=== PATIENT | female | born 1970 | race Caucasian/White ===

== ENCOUNTER 2019-08-09 16:35 | Outpatient (CLI) | payer OTHER, SELFPAY | END 2019-08-09 16:36 | disposition home or self-care (01) | LOC: SPT 16:37 | PROVIDERS: Family Provider Family Medicine; PCP Internal Medicine; Visit Provider Podiatrist Foot & Ankle Surgery | DX: Z46.89 Encounter for fitting and adjustment of other specified devices (principal) | CPT/HCPCS: L1902 ==

== ENCOUNTER → 2019-11-15 14:51 | Outpatient (BNVA) | payer OTHER, SELFPAY | PROVIDERS: Family Provider Family Medicine; PCP Internal Medicine; Visit Provider Obstetrics & Gynecology | DX: Q51.828 Other congenital malformations of cervix (principal) | CPT/HCPCS: 76830 ==

== ENCOUNTER 2019-12-08 07:17 | Outpatient (CLI) | payer OTHER, SELFPAY ==
--- NOTE | 2019-12-08 07:21 | MM_ITS ---
WS: [id number] BILATERAL DIGITAL SCREENING MAMMOGRAPHY WITH CAD CLINICAL INFORMATION: SCREENING HISTORY: Screening mammogram. No current complaints. COMPARISON: September 16, 2018 TECHNIQUE: Bilateral CC and MLO views. FINDINGS: History of Bilateral breast reduction. Scattered fibroglandular densities bilaterally. No suspicious focal mass, asymmetry, calcifications, or architectural distortion. No evidence of malignancy. MM/[id number] IMPRESSION: BI-RADS: 1-Negative FOLLOW UP: 1 Year Follow-up Recommend return to annual screening mammography.
== END 2019-12-08 07:18 | disposition home or self-care (01) ==
LOC: RADSHAW 07:20
PROVIDERS: PCP Family Medicine; Visit Provider Obstetrics & Gynecology
DX: Z12.31 Encounter for screening mammogram for malignant neoplasm of breast (principal)
CPT/HCPCS: 77067

== ENCOUNTER → 2020-08-08 08:03 | Outpatient (BNVA) | payer OTHER, SELFPAY | PROVIDERS: PCP Family Medicine; Visit Provider Internal Medicine | DX: E03.9 Hypothyroidism, unspecified (principal); Z13.1 Encounter for screening for diabetes mellitus; Z78.0 Asymptomatic menopausal state; Z87.81 Personal history of (healed) traumatic fracture | CPT/HCPCS: 99204 ==

== ENCOUNTER 2020-08-22 10:27 | Outpatient (CLI) | payer OTHER, SELFPAY ==
--- NOTE | 2020-08-22 16:15 | XR_ITS ---
WS: [id number] DEXA (DUAL ENERGY X-RAY ABSORPTIOMETRY) Bone mineral density was performed using a [employer] machine. HISTORY: post menopausal, has 2 fractures COMPARISON: None available. Lumbar spine BMD (L1-L4): 1.254 g/cm2 T score: 0.6 Z score: 0.0 Total hip BMD: Left: 1.066 g/cm2. T score: 0.5 Z score: 0.2 Right: 1.030 g/cm2. T score: 0.2 Z score: -0.1 10 year probability of a major osteoporotic fracture is 14%. XR/XR DEXA axial skeleton* [id number] IMPRESSION: NORMAL BONE MINERAL DENSITY based upon the WHO classification for females.
== END 2020-08-22 10:28 | disposition home or self-care (01) ==
LOC: RADWPI 10:29
PROVIDERS: PCP Family Medicine; Visit Provider Internal Medicine
DX: Z78.0 Asymptomatic menopausal state (principal)
CPT/HCPCS: 77080

== ENCOUNTER → 2020-10-04 08:20 | Outpatient (BNVA) | payer OTHER, SELFPAY | PROVIDERS: PCP Family Medicine; Visit Provider Internal Medicine | DX: E03.9 Hypothyroidism, unspecified (principal); Z13.1 Encounter for screening for diabetes mellitus; Z78.0 Asymptomatic menopausal state; Z87.81 Personal history of (healed) traumatic fracture | CPT/HCPCS: 99214 ==

== ENCOUNTER → 2020-10-17 11:57 | Outpatient (BNVA) | payer OTHER, SELFPAY | PROVIDERS: PCP Family Medicine; Visit Provider Family Medicine | DX: Z20.822 Contact with and (suspected) exposure to COVID-19 (principal) | CPT/HCPCS: 87635 ==

== ENCOUNTER 2021-01-08 07:09 | Outpatient (CLI) | payer OTHER, SELFPAY ==
--- NOTE | 2021-01-08 07:19 | MM_ITS ---
WS: [id number] SCREENING DIGITAL MAMMOGRAM WITH CAD HISTORY: SCREENING COMPARISON: 12/08/2019, 09/16/2018 and 09/11/2017 Bilateral CC and MLO views submitted. Computer aided detection analyzed. Breast composition: There are scattered areas of fibroglandular density. 10 mm asymmetry in the later al LEFT breast seen on the CC projection posterior. May be just above the nipple line on the lateral projection. Otherwise the asymmetries within each breast are stable. MM/[place] [id number] IMPRESSION: BI-RADS: 0-Incomplete: Need additional imaging evaluation FOLLOW UP: Need Additional Imaging LEFT breast: Spot compression views (CC and MLO). True ML. Ultrasound to follow if abnormality persists.
== END 2021-01-08 07:10 | disposition home or self-care (01) ==
LOC: RADSHAW 07:12
PROVIDERS: PCP Family Medicine; Visit Provider Family Medicine
DX: Z12.31 Encounter for screening mammogram for malignant neoplasm of breast (principal)
CPT/HCPCS: 77067

== ENCOUNTER 2021-01-24 14:00 | Outpatient (CLI) | payer OTHER, SELFPAY ==
--- NOTE | 2021-01-24 14:06 | MM_ITS ---
WS: [id number] Exam: [place] [id number] Date/Time of Exam: 01/24/2021 2:11 PM Reason For Exam: ABNORMAL MAMMOGRAM A left diagnostic mammogram is performed. Compression spot images in the CC and MLO projections are o btained as well as a 90 degree lateral image of the left breast. A 10 mm ovoid nodule persists on the compression spot images and may represent a small lymph node. No suspicious calcification or adjacen t architectural distortion is demonstrated. Recommendations: Regional ultrasound recommended for further workup. MM/[place] [id number] IMPRESSION: 1. 10 mm of ovoid nodule seen in the upper outer quadrant of the left breast on the compression spot images may represent a small lymph node. No suspicious ca lcification or architectural distortion is demonstrated. BI-RADS Category 0. Needs additional imaging.
--- NOTE | 2021-01-24 14:06 | US_ITS ---
WS: [id number] Exam: US breast LT limited* [id number] Date/Time of Exam: 01/24/2021 2:40 PM Reason For Exam: ABNORMAL MAMMOGRAM The upper outer quadrant of the left breast is targeted for ultrasound evaluation. There was no sign of suspicious solid mass. The 10 mm ovoid nodule described on the today's magnifica tion mammographic images cannot be identified with ultrasound. Recommendations: Repeat compression spot images of the upper outer quadrant of the left breast in 6 m [facility] in addition to regional ultrasound for surveillance. US/US breast LT limited* [id number] IMPRESSION: 1. No suspicious ultrasound finding in the upper outer quadrant of the left sandeep ast. The previously described ovoid nodule in the upper outer quadrant seen on mammography is not seen with ultrasound. BI-RADS Category 3 probably benign.
== END 2021-01-24 14:01 | disposition home or self-care (01) ==
LOC: RADSHAW 14:04
PROVIDERS: PCP Family Medicine; Visit Provider Family Medicine
DX: R92.8 Other abnormal and inconclusive findings on diagnostic imaging of breast (principal); N63.21 Unspecified lump in the left breast, upper outer quadrant
CPT/HCPCS: 76642; 77065

== ENCOUNTER → 2021-02-20 10:48 | Outpatient (BNVA) | payer OTHER, SELFPAY | PROVIDERS: PCP Family Medicine; Visit Provider Obstetrics & Gynecology | DX: N39.46 Mixed incontinence (principal) | CPT/HCPCS: 81000 ==

== ENCOUNTER → 2021-04-13 08:25 | Outpatient (BNVA) | payer OTHER, SELFPAY | PROVIDERS: PCP Family Medicine; Visit Provider Obstetrics & Gynecology | DX: N36.41 Hypermobility of urethra (principal); N39.46 Mixed incontinence; Z20.822 Contact with and (suspected) exposure to COVID-19 | CPT/HCPCS: 87635 ==

== ENCOUNTER 2021-04-18 09:57 | Day surgery (SDC) | payer OTHER, SELFPAY ==
[2021-04-16 11:30] VITALS: BMI 51.7
[2021-04-16 12:47] LABS: Basophils # 0.1 10^3/uL (0.0-0.1); Basophils % 0.8 %; Eosinophils # 0.2 10^3/uL (0.0-0.8); Hematocrit 44.4 % (37.0-47.0); Lymphocytes # 2.8 10^3/uL (0.8-4.8); Lymphocytes % 38.2 %; Mean Corpuscular HGB Conc 31.5 g/dL (30.0-36.0); Mean Corpuscular Hemoglobin 28.4 pg (28.0-34.0); Mean Corpuscular Volume 90.1 fl (81-99); Mean Platelet Volume 10.6 fL (7.4-10.4); Monocytes # 0.5 10^3/uL (0.2-0.9); Monocytes % 7.2 %; Neutrophils # 3.65 10^3/uL (1.8-7.7); Neutrophils % 50.7 %; Nucleated Red Blood Cells % 0 %; Platelet Count 267 10^3/cmm (130-400); Red Blood Count 4.93 10^6/uL (4.1-5.3); Red Cell Distribution Width 13.8 % (12.1-15.1); White Blood Count 7.2 10^3/uL (4.0-10.0)
[2021-04-16 12:53] LABS: Add Urine Microscopic? YES; Bilirubin Urine Neg (Negative); Blood Urine Neg (Negative); Calcium Oxalate Crystals Urine 0-4 /hpf; Glucose Urine UA Norm (Normal); Ketones Urine Negative (Negative); Leukocyte Esterase Urine Negative (Negative); Nitrate Urine Positive (Negative); OR HCG Qualitative Urine Negative (Negative); Protein Urine Neg (Negative); Squamous Epithelial Cell Urine RARE /hpf (0-5); Urine Appearance Clear (CLEAR); Urine Color Yellow (Yellow); Urobilinogen Urine Norm (Negative); pH Urine 5 (5-7)
--- NOTE | 2021-04-16 13:15 | ANES.PREANE2 ---
Pre-Anesthetic Assessment Pre-Anesthetic Assessment: Height/Weight: Height 1.65 m Weight 141.067 kg Proposed Procedure: Operation Date: 04/18/21 07:00 Proposed Procedures p Midurethral single incision sling(Not Applicable) - Cachorro Tamez MD Was Beta Tasha taken within 24 hours: N/A Was Clonidine taken within 24 hours: N/A Social: Social History: No alcohol and No tobacco Exam: Pre-Anes Outpt Exam: alert, oriented x 3, clear to auscultation bilaterally and regular rate & rhythm Airway: Submandibular: WNL Cervical ROM: WNL MP: 2 Dentition: Full CV/HEM: CV/HEM: HTN GI: GI: GERD Metabolic: Metabolic: Morbid obesity and Thyroid Neuropsych: Neuropsych: Depression Anesthetic Plan: ASA status: 3 Anesthesia: General Risk of > 500 ml blood loss (7ml/kg in children): No PFSH Anesthesia PFSH: Medical History GERD (gastroesophageal reflux disease) Controlled with medication. Hypertension Diagnosed with chronic hypertension and pedal edema in 2017 and medication controls the symptoms managed by her primary care provider. She does not have a senior javascript developer. Hypothyroidism Diagnosed in 2006 and controlled with medication managed by real estate administrative assistant Dr. Blake. Mood changes Controlled with fluoxetine managed by her PMD. She does not see a therapist No pertinent past medical history Denies diabetes, asthma, seizures, DVT/PE. PMD: Dr. Guevara OAB (overactive bladder) Controlled with medication managed by her primary care provider . Surgical History S/P cholecystectomy laparoscopic procedure performed in 1999 S/P laparoscopy 04/11/2004--Diagnostic laparoscopy, pelvic pain, Dr. Grissom. She states that no abnormality was noted on laparoscopy. S/P peroneal tendon repair Performed by Dr. Darby at [facility] [place] in May 2019 S/P reduction mammoplasty Performed in 2005 S/P tubal ligation Sterilization by Essure procedure performed in July [address] Lee at [facility]. Status post arthroscopic knee surgery [address] Tracey Family History Mother Diabetes Brother Diabetes Father Heart disease Family/Other Ovarian cancer Maternal cousin, age at diagnosis unknown Breast cancer Paternal aunt, age at diagnosis unknown Sister Thyroid condition Denies family history of Colon cancer Clotting disorder Hyperlipidemia Anesthesia complication Bleeding disorder Hypertension Uterine cancer Stroke Social History Smoking and tobacco status: never smoked Alcohol intake: never Desire information about alcohol rehabilitation?: No Data Anesthesia CBC & Chem 7: 04/16/21 11:52 04/16/21 11:52 Other Labs: Laboratory Results - last 48 hr 04/16/21 04/16/21 04/16/21 11:52 11:52 11:52 WBC 7.2 RBC 4.93 Hgb 14.0 Hct 44.4 MCV 90.1 MCH 28.4 MCHC 31.5 RDW 13.8 Plt Count 267 MPV 10.6 H Neut % (Auto) 50.7 Lymph % (Auto) 38.2 [place] % (Auto) 7.2 Eos % (Auto) 3.0 Baso % (Auto) 0.8 Neut # (Auto) 3.65 Lymph # (Auto) 2.8 [place] # (Auto) 0.5 Eos # (Auto) 0.2 Baso # (Auto) 0.1 Nucleated RBC % (auto) 0 Nucleated RBCs # 0.0 Urine Color Yellow Urine Appearance Clear Urine pH 5 Ur Specific [place] 1.030 Urine Protein Neg Urine Glucose (UA) Norm Urine Ketones Negative Urine Blood Neg Urine Nitrate Positive H Urine Bilirubin Neg Urine Urobilinogen Norm Ur Leukocyte Esterase Negative Urine RBC None Urine WBC None Ur Squamous Epith Cells Rare Calcium Oxalate Crystal 0-4 H Amorphous Sediment Not Reportable Urine Bacteria None Urine HCG, Qual Negative Cardiac Studies: No Data to Display
[2021-04-16 13:21] LABS: Alanine Aminotransferase 14 U/L (0-33); Alkaline Phosphatase 73 IU/L (35-105); Anion Gap 10.1 (5-19); Aspartate Amino Transferase 13 U/L (0-32); Blood Urea Nitrogen 20 mg/dL (6-20); Calcium 9.1 mg/dL (8.5-10.5); Carbon Dioxide 28 mmol/L (22-29); Chloride 107 mmol/L (98-107); Globulin 2.6 g/dL (1.3-4.6); Glucose 84 mg/dL (65-115); Osmolality Calculated 294 mOsm/kg (285-295); Potassium 4.1 mmol/L (3.5-5.1); Sodium 141 mmol/L (136-145); Total Bilirubin 0.3 mg/dL (0.15-1.2); Total Protein 6.6 g/dL (6.6-8.7)
[2021-04-18] MEDS: scopolamine 1.5 Patch 1 PATCH TRANSDERMA (10:29)
--- NOTE | 2021-04-18 10:34 | P.ANESUD_ITS ---
Pre-Anesthetic Update Pre-Anesthetic Assessment: Date of Surgery/Procedure: 04/18/21 Preop Josi gnosis: Stress urinary incontinence Proposed Procedure: Operation Date: 04/18/21 11:25 Proposed Procedures p Midurethral single incision sling(Not Applicable) - Cachorro Tamez MD Any changes to Pre-Anesthetic Assessment?: No Last Intake: Intake Last Liquid Date 04/17/21 Last Liquid Time 19:30 Last Solid Date 04/17/21 Last Solid Time 19:30 Labs Last 48hrs: Laboratory Results - last 48 hr 04/16/21 04/16/21 04/16/21 11:52 11:52 11:52 WBC 7.2 RBC 4.93 Hgb 14.0 Hct 44.4 MCV 90.1 MCH 28.4 MCHC 31.5 RDW 13.8 Plt Count 267 MPV 10.6 H Neut % (Auto) 50.7 Lymph % (Auto) 38.2 [place] % (Auto) 7.2 Eos % (Auto) 3.0 Baso % (Auto) 0.8 Neut # (Auto) 3.65 Lymph # (Auto) 2.8 [place] # (Auto) 0.5 Eos # (Auto) 0.2 Baso # (Auto) 0.1 Nucleated RBC % (a uto) 0 Nucleated RBCs # 0.0 Sodium Potassium Chloride Carbon Dioxide Anion Gap BUN Creatinine GFR Calculation Glucose Calculated Osmolal ity Calcium Total Bilirubin AST ALT Alkaline Phosphata se Total Protein Albumin Globulin Urine Color Yellow Urine Appearance Clear Urine pH 5 Ur Specific Gravit y 1.030 Urine Protein Neg Urine Glucose (UA) Norm Urine Ketones Negative Urine Blood Neg Urine Nitrate Positive H Urine Bilirubin Neg Urine Urobilinogen Norm Ur Leukocyte Rima ase Negative Urine RBC None Urine WBC None Ur Squamous Epith Cells Rare Calcium Oxalate Cr ystal 0-4 H Amorphous Sediment Not Reportable Urine Bacteria None Urine HCG, Qual Negative Blood Type Rho(D) Type Antibody Screen 04/16/21 04/16/21 11:52 11:52 WBC RBC Hgb Hct MCV MCH MCHC RDW Plt Count MPV Neut % (Auto) Lymph % (Auto) [place] % (Auto) Eos % (Auto) Baso % (Auto) Neut # (Auto) Lymph # (Auto) [place] # (Auto) Eos # (Auto) Baso # (Auto) Nucleated RBC % (a uto) Nucleated RBCs # Sodium 141 Potassium 4.1 Chloride 107 Carbon Dioxide 28 Anion Gap 10.1 BUN 20 Creatinine 0.6 GFR Calculation 105.0 Glucose 84 Calculated Osmolal ity 294 Calcium 9.1 Total Bilirubin 0.3 AST 13 ALT 14 Alkaline Phosphata se 73 Total Protein 6.6 Albumin 4.0 Globulin 2.6 Urine Color Urine Appearance Urine pH Ur Specific Gravit y Urine Protein Urine Glucose (UA) Urine Ketones Urine Blood Urine Nitrate Urine Bilirubin Urine Urobilinogen Ur Leukocyte Rima ase Urine RBC Urine WBC Ur Squamous Epith Cells Calcium Oxalate Cr ystal Amorphous Sediment Urine Bacteria Urine HCG, Qual Blood Type A Positive Rho(D) Type Positive Antibody Screen Negative Vitals: Oxygen Delivery Me thod 04/18/21 10:16 Exam: Pre-Anes Outpt Exam: alert, oriented x 3, clear to auscultation bilaterally and regular rate & rhythm Cardiac Studies: No Data to Display
[2021-04-18] MEDS: sodium chloride 0.9% 1,000 ML 30 ML IV (10:50)
--- NOTE | 2021-04-18 11:23 | W.PM.OPSUD ---
Surgery/Procedure H&P Update DATE OF PROCEDURE: April 18, 2021 DATE H&P PERFORMED: 04/16/21 H&P UPDATE INFORMATION: I have reviewed H&P completed within last 30 days, I have examined patient prior to procedure and No changes to prior documentation PREOP DIAGNOSIS: Stress urinary incontinence PLANNED PROCEDURE: Operation Date: 04/18/21 11:25 Proposed Procedures p Midurethral single incision sling(Not Applicable) - Cachorro Tamez MD
--- NOTE | 2021-04-18 12:25 | P.OP_ITS ---
Operative Report Date of procedure: April 18, 2021 Pre-op Diagnosis: Stress urinary incontinence Post-op diagnosis: same Procedure Done: Single incision mid urethral sling Pathology: none sent Surgeon: Cachorro Tamez MD Anesthesia: General Estimated blood loss (mL): 10 IV fluids (mL): 900 Urine output (mL): 100 Complications: None Findings: Urethral hypermobility Condition: stable Disposition: PACU Procedure: After obtaining informed consent, the patient was taken to the o perating room and placed in the supine position, given general anesthesia, and prepped and draped in sterile fashion. The abdomen, vulva and vagina were prepped and draped in a sterile manner. A time out procedure was performed. The anterior vaginal mucosa beneath the midurethra was infiltrated with 0.5% Marcaine with epinephrine. A vertical midline incision was made beneath the midurethra, nearly 1.5 cm length. Careful submucosal dissection was performed bilaterally up to the interior portion of the inferior pubic ramus. The insertion of adductor longus tendon on the patient?s pubic ramus was identified as reference land paul. Palpated the notch along the internal edge of ischiopubic ramus where the adductor longus tendon and the inferior pubic ramus meet. The Altis single incision sling (SIS) was selected. Then the needle of the SIS inserted aiming at the location of this notch. One of the integrated self- fixating tips place onto the needle by sliding it over the end of the needle. The needle/sling assembly was inserted toward the location of identified reference notch making sure that the flat of the handle is perpendicular to the desired path. The needle was tracked along the posterior surface of the ischiopubic ramus until the midline paul on the mesh is approximately at the midline position under the urethra. The needle was removed and the same was repeated on the contralateral side until the appropriate sling tension under the urethra was achieved ensuring that the mesh lays flat. The needle was removed and vaginal incision was closed in a running interlocking fashion with 2-0 Vicryl. Excellent hemostasis was obtained. Sponge, lap, needle, and instrument counts were correct times three. The patient was taken to the recovery room, awake and in stable condition.
[2021-04-18 12:27] VITALS: BP 134/70; PULSE 66; RESP 20; TEMP 36.7; O2SAT 97
[2021-04-18 12:35] VITALS: BP 115/74; PULSE 81; RESP 20; O2SAT 99
[2021-04-18 12:40] VITALS: BP 125/75; PULSE 73; RESP 20; TEMP 36.1; O2SAT 95
[2021-04-18 12:50] VITALS: BP 132/61; PULSE 70; RESP 16; TEMP 36.2; O2SAT 94
[2021-04-18 13:04] VITALS: BP 138/85; PULSE 67; RESP 15; TEMP 36.6; O2SAT 95
[2021-04-18] MEDS: ibuprofen 800 mg tablet PO (13:29)
--- NOTE | 2021-04-18 15:46 | ANE.PACU2 ---
Inpatient post-anesthesia follow up: Airway intact: Yes Vital signs: Temperature 98 F Pulse Rate 67 Respiratory Rate 15 Blood Pressure 138/85 Pulse Oximetry 95 Oxygen Delivery Me thod Room Air Oxygen Flow Rate 8 Fraction of Inspir ed Oxygen Hydration adequate: Yes Nausea and vomiting: No Pain level: 2 Mental status: Baseline
== END 2021-04-18 15:05 | disposition home or self-care (01) ==
PROVIDERS: PCP Family Medicine; Visit Provider Obstetrics & Gynecology
PROC: (CPT 57288; principal; 2021-04-18 11:25)
DX: N39.3 Stress incontinence (female) (male) (principal); I10 Essential (primary) hypertension; K21.9 Gastro-esophageal reflux disease without esophagitis; E66.01 Morbid (severe) obesity due to excess calories; Z68.43 Body mass index [BMI] 50.0-59.9, adult; F32.9 Major depressive disorder, single episode, unspecified; E03.9 Hypothyroidism, unspecified; Z82.49 Family history of ischemic heart disease and other diseases of the circulatory system; Z83.3 Family history of diabetes mellitus
CPT/HCPCS: 57288; 36415; 80053; 81001; 84703; 85025; 86850; 86900; 96365; C1713; J0330; J0690; J1100; J2405; J2704; J3010; J7030

== ENCOUNTER → 2021-05-01 08:57 | Outpatient (BNVA) | payer OTHER, SELFPAY | PROVIDERS: PCP Family Medicine; Visit Provider Obstetrics & Gynecology | DX: Z48.816 Encounter for surgical aftercare following surgery on the genitourinary system (principal); E03.9 Hypothyroidism, unspecified; N32.81 Overactive bladder; R23.2 Flushing | CPT/HCPCS: 83001 ==

== ENCOUNTER → 2021-05-11 11:54 | Outpatient (BNVA) | payer OTHER, SELFPAY | PROVIDERS: PCP Family Medicine; Visit Provider Family Medicine | DX: Z20.828 Contact with and (suspected) exposure to other viral communicable diseases (principal); Z20.822 Contact with and (suspected) exposure to COVID-19 | CPT/HCPCS: 87635 ==

== ENCOUNTER 2021-05-15 13:03 | Inpatient (IN) | payer OTHER, SELFPAY ==
[2021-05-15] VITALS (9 sets, daily range): BP systolic 125–132; BP diastolic 85–88; PULSE 53–97; RESP 17–26; TEMP 36.6–37.1; O2SAT 80–92; BMI 49.9
--- NOTE | 2021-05-15 13:18 | ED_ITS ---
HPI - COVID General: Chief Complaint: Shortness of Breath/Dyspnea Stated Complaint: COVID SYMPTOMS/ RESPIRATORY DISTRESS Time Seen by Provider: 05/15/21 13:18 History of Present Illness: HPI Narrative: 50-year-old female presents to the emergency room complaints of COVID symptoms and difficulty breathing. MD complaint: known COVID positive Prior covid testing: yes, results known Prior testing date: 05/11/21 COVID 19 common symptoms: positive fever(s), chills, cough, non-productive cough, dyspnea, fatigue, body aches, loss of sense of smell and/or taste, throat pain, nasal congestion and diarrhea; negative nausea or vomiting COVID 19 other sytmptoms: positive requiring oxygen; negative chest pain Onset (ago): day(s) (6) Severity: moderate Pertinent comorbid conditions: hypertension and obesity Treatment prior to arrival: acetaminophen COVID Results: SARS-CoV-2 RNA (RT-PCR) Detected (NOT DETECTED) A 05/11/21 11:54 05/11/21 Nasal/Oral Coronavirus 2019 PCR Not detected 10/17/20 11:57 10/17/20 Review of Systems Const: Reports: fever(s), chills, body aches and fatigue ENMT: Reports: throat pain and nasal congestion Card: Denies: chest pain, edema, dyspnea on exertion or orthopnea Resp: Reports: dyspnea and non-productive cough GI: Reports: diarrhea; Denies: nausea or vomiting : Denies: flank pain, difficulty voiding, dysuria, urinary frequency or urinary urgency Skin/Breast: Denies: rash or pruritus [facility] ED PFSH: Medical History Aftercare following surgery of the genitourinary system GERD (gastroesophageal reflux disease) Controlled with medication. Hypertension Diagnosed with chronic hypertension and pedal edema in 2018 and medication controls the symptoms managed by her primary care provider. She does not have a nonprofit manager. Hypothyroidism Diagnosed in 2006 and controlled with medication managed by chief of anesthesiology Dr. Blake. Mood changes Controlled with fluoxetine managed by her PMD. She does not see a therapist No pertinent past medical history Denies diabetes, asthma, seizures, DVT/PE. PMD: Dr. Guevara OAB (overactive bladder) Controlled with medication managed by her primary care provider . Surgical History History of suburethral sling procedure 04/18/2021- single incision midurethral sling performed by Dr. Tamez at [facility] S/P cholecystectomy laparoscopic procedure performed in 1999 S/P laparoscopy 04/11/2004--Diagnostic laparoscopy, pelvic pain, Dr. Grissom. She states that no abnormality was noted on laparoscopy. S/P peroneal tendon repair Performed by Dr. Darby at [facility] [place] [place] in May 2019 S/P reduction mammoplasty Performed in 2005 S/P tubal ligation Sterilization by Essure procedure performed in July [address] Lee at [facility] [place] [place]. Status post arthroscopic knee surgery [address] Tracey Family History Mother Diabetes Brother Diabetes Father Heart disease Family/Other Ovarian cancer Maternal cousin, age at diagnosis unknown Breast cancer Paternal aunt, age at diagnosis unknown Sister Thyroid condition Denies family history of Colon cancer Clotting disorder Hyperlipidemia Anesthesia complication Bleeding disorder Hypertension Uterine cancer Stroke Social History Smoking and tobacco status: never smoked Alcohol intake: never Physical Exam Const: COMMON NORMALS: no acute distress GENERAL APPEARANCE: cooperative and comfortable ORIENTATION/CONSCIOUSNESS: Yes awake, Yes oriented to person, Yes oriented to place and Yes oriented to time HENMT: COMMON NORMALS: normocephalic, atraumatic and hearing grossly normal bilaterally HEAD & SCALP: normocephalic and atraumatic Neck/C-Spine: COMMON NORMALS: no JVD Resp: EFFORT & INSPECTION: Yes tachypneic, Yes respiratory distress and Yes labored AUSCULTATION: crackles and wheezes Cardio: COMMON NORMALS: no JVD, regular rate, regular rhythm and No murmurs present (Cardio) RATE: regular rate RHYTHM: regular rhythm GI: COMMON NORMALS: Soft to palpation and No hepatosplenomegaly present AUSCULTATION: Yes normoactive bowel sounds PALPATION: Yes Soft to palpation, No Tenderness to palpation present (GI), No Guarding due to palpation present (GI) and Yes No hepatosplenomegaly present Extremity: COMMON NORMALS: normal to inspection, capillary refill normal, no clubbing, cyanosis or edema, no calf tenderness and no pedal edema Neuro: SENSORIUM/ORIENTATION: Yes oriented to person, Yes oriented to place and Yes oriented to time Skin: COMMON NORMALS: no rashes or lesions noted GENERAL SKIN EXAM: no rashes or lesions noted Course Vital Signs: Vital signs: Vital Signs Temperature 98.1 F 05/17/21 12:35 Pulse Rate 43 L 05/18/21 06:00 Respiratory Rate 17 05/18/21 04:00 Blood Pressure 114/56 05/18/21 04:00 Pulse Oximetry 96 05/18/21 04:00 MDM - COVID MDM Narrative: Medical decision making narrative: Labs imaging EKG reviewed. Patient is with moderate to severe Covid pneumonitis is requiring oxygen at high doses she was switched to heated high flow. Discussed with hospitalist orders written we have initiated remdesivir and dexamethasone. She will require hospitalization. Lab Data: Labs: Lab Results 05/15/21 05/15/21 05/15/21 12:40 12:40 12:40 WBC 6.2 10^3/uL 10^3/ uL (4.0-10.0) RBC 5.37 10^6/uL H 10 ^6/uL (4.1-5.3) Hgb 14.8 g/dL g/dL (11.5-15.3) Hct 45.3 % % (37.0-47.0) MCV 84.4 fl fl (81-99) MCH 27.6 pg L pg (28.0-34.0) MCHC 32.7 g/dL g/dL (30.0-36.0) RDW 14.5 % % (12.1-15.1) Plt Count 219 10^3/cmm 10^3 /cmm (130-400) MPV 11.1 fL H fL (7.4-10.4) Neut % (Auto) 62.3 % % Lymph % (Auto) 32.3 % % [place] % (Auto) 5.0 % % Eos % (Auto) 0.0 % % Baso % (Auto) 0.2 % % Neut # (Auto) 3.87 10^3/uL 10^3 /uL (1.8-7.7) Lymph # (Auto) 2.0 10^3/uL 10^3/ uL (0.8-4.8) [place] # (Auto) 0.3 10^3/uL 10^3/ uL (0.2-0.9) Eos # (Auto) 0.0 10^3/uL 10^3/ uL (0.0-0.8) Baso # (Auto) 0.0 10^3/uL 10^3/ uL (0.0-0.1) Nucleated RBC % (a uto) 0 % % Nucleated RBCs # 0.0 /100WBC /100W BC D-Dimer 1.27 ug/mIFEU H u g/mIFEU (0-0.59) Specimen Type Sample Site ABG pH ABG pCO2 ABG pO2 ABG HCO3 ABG Base Excess Darwin Test Hematocrit O2 Delivery Device O2 Liters/Min FiO2 Department Assistant ID Sodium 138 mmol/L mmol/L (136-145) Potassium 3.1 mmol/L L mmol /L (3.5-5.1) Chloride 98 mmol/L mmol/L (98-107) Carbon Dioxide 25 mmol/L mmol/L (22-29) Anion Gap 18.1 (5-19) BUN 9 mg/dL mg/dL (6-20) Creatinine 0.7 mg/dL mg/dL (0.5-0.9) GFR Calculation 87.9 mL/min L mL/ min (90-130) Glucose 113 mg/dL mg/dL (65-115) Calculated Osmolal ity 285 mOsm/kg mOsm/ kg (285-295) Lactic Acid Lactic Acid (Sepsi s) Calcium 8.2 mg/dL L mg/dL (8.5-10.5) Total Bilirubin 0.6 mg/dL mg/dL (0.15-1.2) AST 82 U/L H U/L (0-32) ALT 46 U/L H U/L (0-33) Alkaline Phosphata se 119 IU/L H IU/L (35-105) Troponin T Baselin e C-Reactive Protein 104.4 mg/L H mg/L (0.0-4.9) NT-Pro-B Natriuret Pep Total Protein 6.7 g/dL g/dL (6.6-8.7) Albumin 3.6 g/dL g/dL (3.5-5.2) Globulin 3.1 g/dL g/dL (1.3-4.6) Procalcitonin 05/15/21 05/15/21 05/15/21 12:40 12:40 13:50 WBC RBC Hgb Hct MCV MCH MCHC RDW Plt Count MPV Neut % (Auto) Lymph % (Auto) [place] % (Auto) Eos % (Auto) Baso % (Auto) Neut # (Auto) Lymph # (Auto) [place] # (Auto) Eos # (Auto) Baso # (Auto) Nucleated RBC % (a uto) Nucleated RBCs # D-Dimer Specimen Type Arterial Sample Site Radial, right ABG pH 7.43 (7.35-7.45) ABG pCO2 39.3 mmHg mmHg (35-45) ABG pO2 57.0 mmHg L mmHg (80.0-100.0) ABG HCO3 26.1 mmol/L H mmo l/L (22-26) ABG Base Excess 1.8 mmol/L mmol/L (-2.0-2.0) Darwin Test Pos Hematocrit 45.5 % % (37-47) O2 Delivery Device Nc O2 Liters/Min 8.0 % % FiO2 Department Assistant ID Amh Sodium Potassium Chloride Carbon Dioxide Anion Gap BUN Creatinine GFR Calculation Glucose Calculated Osmolal ity Lactic Acid Lactic Acid (Sepsi s) Calcium Total Bilirubin AST ALT Alkaline Phosphata se Troponin T Baselin e 8 ng/L ng/L (0-10) C-Reactive Protein NT-Pro-B Natriuret Pep 149 pg/mL H pg/mL (0-125) Total Protein Albumin Globulin Procalcitonin 0.11 ng/mL ng/mL (0-0.5) 05/15/21 05/15/21 05/15/21 14:48 16:00 17:31 WBC RBC Hgb Hct MCV MCH MCHC RDW Plt Count MPV Neut % (Auto) Lymph % (Auto) [place] % (Auto) Eos % (Auto) Baso % (Auto) Neut # (Auto) Lymph # (Auto) [place] # (Auto) Eos # (Auto) Baso # (Auto) Nucleated RBC % (a uto) Nucleated RBCs # D-Dimer Specimen Type Arterial Sample Site Radial, right ABG pH 7.44 (7.35-7.45) ABG pCO2 40.1 mmHg mmHg (35-45) ABG pO2 60.7 mmHg L mmHg (80.0-100.0) ABG HCO3 27.4 mmol/L H mmo l/L (22-26) ABG Base Excess 3.1 mmol/L H mmol /L (-2.0-2.0) Darwin Test Pos Hematocrit 46.5 % % (37-47) O2 Delivery Device Nc O2 Liters/Min 45.0 % % FiO2 60.0 % % Department Assistant ID Amh Sodium Potassium Chloride Carbon Dioxide Anion Gap BUN Creatinine GFR Calculation Glucose Calculated Osmolal ity Lactic Acid 2.3 mmol/L H mmol /L (0.5-2.2) Lactic Acid (Sepsi s) 1.1 mmol/L mmol/L (0.5-2.2) Calcium Total Bilirubin AST ALT Alkaline Phosphata se Troponin T Baselin e C-Reactive Protein NT-Pro-B Natriuret Pep Total Protein Albumin Globulin Procalcitonin COVID Results: SARS-CoV-2 RNA (RT-PCR) Detected (NOT DETECTED) A 05/11/21 11:54 05/11/21 Nasal/Oral Coronavirus 2019 PCR Not detected 10/17/20 11:57 10/17/20 Discharge Plan Discharge Patient Disposition: Admitted As Inpatient Admit Provider: Gamaliel Wick Clinical Impression: Pneumonia due to COVID-19 virus, Acute respiratory failure with hypoxia, Hypothyroidism Condition: Stable Coding Level of Care Code ED Polisher Hand for Yomaira Pedroza
--- NOTE | 2021-05-15 13:35 | XR_ITS ---
WS: [id number] Exam: XR chest 1V portable [id number] Date/Time of Exam: 05/15/2021 1:38 PM Reason For Exam: hypoxia Comparison 06/16/2019. There are patchy ill-defined groundglass densities noted throughout both lung suspicious for pneumoni a. Normal cardiomediastinal structures. No pleural effusion. No pneumothorax. Chronic elevation of th e right diaphragm. XR/XR chest 1V portable [id number] IMPRESSION: 1. Patchy ill-defined groundglass infiltrates throughout both lungs suggesting pneumonia. Covid pneumonia could have this appearance but the pattern is nonspe cific
[2021-05-15 14:01] LABS: Basophils % 0.2 %; Hematocrit 45.3 % (37.0-47.0); Hemoglobin 14.8 g/dL (11.5-15.3); Lymphocytes % 32.3 %; Mean Corpuscular HGB Conc 32.7 g/dL (30.0-36.0); Mean Corpuscular Hemoglobin 27.6 pg (28.0-34.0); Mean Corpuscular Volume 84.4 fl (81-99); Mean Platelet Volume 11.1 fL (7.4-10.4); Monocytes # 0.3 10^3/uL (0.2-0.9); Neutrophils # 3.87 10^3/uL (1.8-7.7); Neutrophils % 62.3 %; Nucleated Red Blood Cells % 0 %; Platelet Count 219 10^3/cmm (130-400); Red Blood Count 5.37 10^6/uL (4.1-5.3); Red Cell Distribution Width 14.5 % (12.1-15.1); White Blood Count 6.2 10^3/uL (4.0-10.0)
[2021-05-15 14:02] LABS: ABG PCO2 39.3 mmHg (35-45); ABG PH Result 7.43 (7.35-7.45); Arterial Blood Gas Hematocrit 45.5 % (37-47); Base Excess ABG 1.8 mmol/L (-2.0-2.0); Blood Gas Allen Test Pos; Blood Gas Operator Identificat AMH; Blood Gas Sample Site Radial, right; Blood Gas Sample Type Arterial; HCO3 ABG 26.1 mmol/L (22-26); Oxygen Device NC
[2021-05-15 14:11] LABS: Alanine Aminotransferase 46 U/L (0-33); Albumin Level 3.6 g/dL (3.5-5.2); Alkaline Phosphatase 119 IU/L (35-105); Anion Gap 18.1 (5-19); Aspartate Amino Transferase 82 U/L (0-32); Blood Urea Nitrogen 9 mg/dL (6-20); C Reactive Protein 104.4 mg/L (0.0-4.9); Calcium 8.2 mg/dL (8.5-10.5); Carbon Dioxide 25 mmol/L (22-29); Chloride 98 mmol/L (98-107); Globulin 3.1 g/dL (1.3-4.6); Glomerular Filtration Rate 87.9 mL/min (90-130); Glucose 113 mg/dL (65-115); Osmolality Calculated 285 mOsm/kg (285-295); Potassium 3.1 mmol/L (3.5-5.1); Sodium 138 mmol/L (136-145); Total Bilirubin 0.6 mg/dL (0.15-1.2); Total Protein 6.7 g/dL (6.6-8.7)
[2021-05-15] MEDS: dexamethasone 4 mg/mL INJ 6 MG IVP (14:30)
[2021-05-15] MEDS: remdesivir 200 MG in sodium chloride 0.9% (100 ml) 60 ML 100 MG IV (14:31)
--- NOTE | 2021-05-15 14:56 | CTR_ITS ---
PROCEDURE INFORMATION: Exam: CTA Chest With Contrast Exam date and time: 05/15/2021 2:56 PM Age: 50 years old Clinical indication: Cough and shortness of breath; Additional info: Covid TECHNIQUE: Imaging protocol: Computed tomographic angiography of the chest with contrast. 3D rendering (Not supervised by radiologist): MIP and/or 3D reconstructed images were created by the technologist. Radiation optimization: All CT scans at this facility use at least one of these dose optimization techniques: automated exposure control; mA and/or kV adjustment per patient size (includes targeted exams where dose is matched to clinical indication); or iterative reconstruction. Contrast material: OMNI 350; Contrast volume: 90 ml; Contrast route: INTRAVENOUS (IV); COMPARISON: CR XR chest 1V portable [id number] 05/15/2021 1:50 PM RADIATION DOSE METRICS: Total DLP (mGy-cm): 564.04 FINDINGS: Pulmonary arteries: Normal. No pulmonary emboli. Aorta: Unremarkable. No aortic aneurysm. No aortic dissection. Lungs: Patchy bilateral mixed interstitial and airspace infiltrates. Pleural spaces: Unremarkable. No pneumothorax. No pleural effusion. Heart: Unremarkable. No cardiomegaly. No pericardial effusion. Lymph nodes: Unremarkable. No enlarged lymph nodes. Liver: Hepatic steatosis. Gallbladder and bile ducts: Cholecystectomy Bones/joints: Unremarkable. No acute fracture. Soft tissues: Unremarkable. CT/CT angio chest PE protcl [id number] IMPRESSION: 1. Negative for pulmonary embolus. 2. Cholecystectomy 3. Patchy bilateral mixed interstitial and airspace infiltrates. 4. Hepatic steatosis. Radiation Dose CTDIVOL = (mGy): DLP = 564.04 (mGy-cm)
[2021-05-15 15:20] LABS: Lactic Sepsis W/Reflex 2.3 mmol/L (0.5-2.2)
[2021-05-15 15:20] LABS: D Dimer 1.27 ug/mIFEU (0-0.59)
[2021-05-15 16:11] LABS: ABG PCO2 40.1 mmHg (35-45); ABG PH Result 7.44 (7.35-7.45); Arterial Blood Gas Hematocrit 46.5 % (37-47); Base Excess ABG 3.1 mmol/L (-2.0-2.0); Blood Gas Allen Test Pos; Blood Gas Operator Identificat AMH; Blood Gas Sample Site Radial, right; Blood Gas Sample Type Arterial; HCO3 ABG 27.4 mmol/L (22-26); Oxygen Device NC; PO2 ABG 60.7 mmHg (80.0-100.0)
--- NOTE | 2021-05-15 16:37 | P.HP_ITS ---
Providers/Chief Complaint Primary Care Provider: Abdi Guevara MD Chief Complaint: COVID SYMPTOMS/ RESPIRATORY DISTRESS History of Present Illness Arlet Parker is a 50 year old female with a past medical history of hypothyroidism, hypertension recently, recently had bladder surgery for stress incontinence who presents to [facility] for shortness of breath, cough, fatigue, malaise, fever since May 03. Patient tells me that since about May 03 she started to feel fatigue, malaise, fever, cough she is notified by the health department that she tested positive for Covid on Friday. She has not been vaccinated for COVID-19, she is not received any monoclonal antibodies, she is not received influenza vaccine. She denies any cardiovascular history, no history of smoking, no history of COPD, no history of type 2 diabetes, no history of renal insufficiency. In the emergency room, patient was found to have acute hypoxic respiratory failure, initially put on 6 L nasal cannula, which was quickly increased to 40% 60 L, I examined her on 40% 60 L and she was still a bit short of breath, mild intercostal and suprasternal retractions, mild nasal flaring, her oxygen saturations were in the mid 80s, she is able to speak full sentences, repeat ABG showed a PO2 of 60.7 on 60%. Chest x-ray shows bilateral groundglass infiltrates. Given her BMI of 49.9, and her rapid increase in her oxygen requirements, I advised patient that she is a high risk of intubation in the next 24 to 48 hours. She voices any, all questions answered, agreed to be a full code, will admit her into the intensive care unit for closer monitoring. Review of Systems Const: Reports: fever(s), chills, fatigue and malaise Eyes: Denies: change in vision or blurry vision ENMT: Denies: nasal congestion Card: Denies: chest pain or palpitations Resp: Reports: dyspnea and non-productive cough; Denies: productive cough or wheezing GI: Denies: abdominal pain, nausea, vomiting, hematemesis, diarrhea, constipation, hematochezia or melena : Denies: flank pain, dysuria or urinary frequency Musc: Denies: back pain Skin/Breast: Denies: rash Neuro: Denies: headache(s), dizziness or vertigo Psych: Reports: sleeping less Endo: Denies: polyuria Medications/Allergies Home Medications Medication Instructions Recorded Confirmed Last Taken Type omeprazole 40 mg capsule,delayed 40 mg PO BID 07/02/19 05/15/21 05/08/21 History release fluoxetine 20 mg capsule 20 mg PO DAILY #30 cap 02/07/20 05/15/21 05/08/21 Rx triamterene 37.5 1 cap PO DAILY cap 11/17/20 05/15/21 05/08/21 History mg-hydrochlorothiazide 25 mg capsule multivitamin 1 tab PO DAILY 01/22/21 05/15/21 05/08/21 History levothyroxine 150 mcg capsule 150 mcg PO DAILY #90 cap 03/13/21 05/15/21 05/08/21 Rx acetaminophen 325 mg PO Q4H PRN #60 cap 04/18/21 05/15/21 Unknown Rx ibuprofen 800 mg PO TID PRN #60 tab 04/18/21 05/15/21 Unknown Rx oxybutynin chloride 15 mg 15 mg PO DAILY 30 Days #30 tab 05/01/21 05/15/21 05/08/21 Rx tablet,extended release 24 hr amoxicillin-pot clavulanate 1 tab PO BID 05/15/21 05/15/21 05/14/21 History Allergies Allergy/AdvReac Type Severity Reaction Status Date / Time No Known Allergies Allergy Verified 05/01/21 08:27 PFSH Acute PFSH: Medical History Aftercare following surgery of the genitourinary system GERD (gastroesophageal reflux disease) Controlled with medication. Hypertension Diagnosed with chronic hypertension and pedal edema in 2017 and medication controls the symptoms managed by her primary care provider. She does not have a net application support specialist. Hypothyroidism Diagnosed in 2006 and controlled with medication managed by septic tank service technician Dr. Blake. Mood changes Controlled with fluoxetine managed by her PMD. She does not see a therapist No pertinent past medical history Denies diabetes, asthma, seizures, DVT/PE. PMD: Dr. Guevara OAB (overactive bladder) Controlled with medication managed by her primary care provider . Surgical History History of suburethral sling procedure 04/18/2021- single incision midurethral sling performed by Dr. Tamez at [facility] S/P cholecystectomy laparoscopic procedure performed in 1999 S/P laparoscopy 04/11/2004--Diagnostic laparoscopy, pelvic pain, Dr. Grissom. She states that no abnormality was noted on laparoscopy. S/P peroneal tendon repair Performed by Dr. Darby at [facility] in May 2019 S/P reduction mammoplasty Performed in 2005 S/P tubal ligation Sterilization by Essure procedure performed in July [address] Lee at [facility]. Status post arthroscopic knee surgery [address] Tracey Family History Mother Diabetes Brother Diabetes Father Heart disease Family/Other Ovarian cancer Maternal cousin, age at diagnosis unknown Breast cancer Paternal aunt, age at diagnosis unknown Sister Thyroid condition Denies family history of Colon cancer Clotting disorder Hyperlipidemia Anesthesia complication Bleeding disorder Hypertension Uterine cancer Stroke Social History Smoking and tobacco status: never smoked Alcohol intake: never Vitals/I&O/Wt Last Vital Signs Temp 97.8 F 05/15/21 13:21 Pulse 93 05/15/21 14:49 Resp 22 H 05/15/21 14:55 BP 130/85 05/15/21 14:49 Pulse Ox 80 L 05/15/21 14:55 Weight last 48 hrs Weight 136.078 kg Physical Exam Const: COMMON NORMALS: no acute distress and patient oriented x3 GENERAL APPEARANCE: cooperative and comfortable HENMT: COMMON NORMALS: normocephalic HEAD & SCALP: normocephalic Eye: COMMON NORMALS: Equal, round and reactive pupils present and EOMs intact bilaterally GENERAL EYE: appearance normal, both eyes and all related structures PUPIL: Yes Equal, round and reactive pupils present Neck/C-Spine: COMMON NORMALS: full ROM and no lymphadenopathy THYROID: Thyroid normal Lymph: LYMPHATIC: no lymphadenopathy noted Resp: EFFORT & INSPECTION: Yes able to speak in complete sentences, Yes tachypneic, Yes respiratory distress (Mild respiratory distress) and Yes retractions intercostal AUSCULTATION: crackles and wheezes Cardio: COMMON NORMALS: regular rate, regular rhythm, S1 normal heart sound present, S2 normal heart sound present, No gallops present (Cardio), No clicks present (Cardio) and No murmurs present (Cardio) RATE: regular rate RHYTHM: regular rhythm HEART SOUNDS: S1 normal heart sound present and S2 normal heart sound present GI: COMMON NORMALS: Normal to inspection, nondistended, normoactive bowel sounds present, Soft to palpation, non-tender and No hepatosplenomegaly present PALPATION: Yes Soft to palpation and Yes No hepatosplenomegaly present Extremity: COMMON NORMALS: normal to inspection, full ROM and no pedal edema Neuro: COMMON NORMALS: patient oriented x3, CN's II-XII intact bilaterally, moves all extremities and no focal motor deficits Psych: COMMON NORMALS: mental status grossly normal, Normal thought process present and cooperative THOUGHT PROCESS: Normal thought process present Data : 05/15/21 12:40 05/15/21 12:40 A&P Assessment and plan (1) Acute respiratory failure with hypoxia: Acute hypoxic respiratory failure secondary COVID-19 pneumonia -With evidence of acute respiratory distress syndrome -With transaminitis -Risk factors morbid obesity -ABG on 60% is pH 7.44, PO2 60.7, bicarb 27 Plan -Admit to ICU -Continue heated high flow, BiPAP as needed -Urine cultures, blood cultures, sputum cultures, urine bacterial antigen -Monitor respiratory status closely -Incentive spirometer, flutter valve -Remdesivir day 1 of 5 -Baricitinib day 1-14 -Decadron day 1 of 10 -Rocephin and azithromycin for secondary bacterial prophylaxis -Vitamin C, zinc, vitamin D -Full code -Lovenox for DVT prophylaxis -Patient is a high risk of intubation the next 24 4 8 hours -CT angiogram, cardiac echo, BMP, troponin, serial EKGs, blood cultures, pending, A1c Hypothyroidism, continue home meds - Status: Acute (2) Acute respiratory distress syndrome: Status: Acute (3) Pneumonia due to COVID-19 virus: Status: Acute Attestations Medical Necessity Statement*: Patient requires hospitalization, for acute respiratory failure with hypoxia secondary to COVID-19, requiring ICU admission, greater than 2 midnights Coding Level of Care Code Acute Fur Vault Attendant for [facility] Kasia Diagnoses Acute respiratory failure with hypoxia J96.01 Acute respiratory distress syndrome J80 Pneumonia due to COVID-19 virus U07.1; J12.82
[2021-05-15] MEDS: iohexol 350 mg/mL 100 mL Btl IV (16:38)
[2021-05-15 16:44] LABS: Reflex Lactate Order REFLEX LACTIC ORDERD
[2021-05-15 17:35] LABS: Troponin(5th) Baseline 8 ng/L (0-10)
[2021-05-15 17:42] LABS: NT Pro B Type Natriuretic Pept 149 pg/mL (0-125); Procalcitonin 0.11 ng/mL (0-0.5)
[2021-05-15 18:03] LABS: Lactic Acid level (Lactate) 1.1 mmol/L (0.5-2.2)
[2021-05-15] MEDS: ascorbic acid 500 mg Tablet PO (21:59)
[2021-05-15] MEDS: docusate sodium 100 mg Capsule PO (22:00)
[2021-05-15] MEDS: potassium chloride ER 20 mEq Tablet 40 MEQ PO (22:00)
[2021-05-15] MEDS: pantoprazole 40 mg SDV IVP (22:00)
[2021-05-15] MEDS: enoxaparin 40 mg/0.4 mL Syringe SUBCUT (22:00)
[2021-05-15] MEDS: azithromycin 500 MG in sodium chloride 0.9% 250 ML 250 MG IV (22:01)
[2021-05-15] MEDS: cefTRIAXone 1,000 MG in sodium chloride 0.9% (plus) 50 ML 100 MG IV (22:03)
--- NOTE | 2021-05-15 22:30 | ECG_ITS ---
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 Measurements Intervals [place] Rate: 59 P: 35 AR: 179 QRS: 49 QRSD: 93 T: 12 QT: 448 QTc: 447 Interpretive Statements SINUS BRADYCARDIA No previous ECG available for comparison Electronically Signed On 05-16-2021 22:49:26 HOUSE PIPING INSPECTOR by Venus Bledsoe M.D. [id number]
[2021-05-15 22:47] LABS: Estmated Average Glucose 114; Hemoglobin A1C 5.6 % (4.0-6.0)
[2021-05-15 23:08] LABS: Troponin T (5th) Once 6 ng/L (0-10)
[2021-05-15 23:18] LABS: Thyroid Stimulating Hormone 4.01 uIU/mL (0.27-4.20)
[2021-05-15 23:24] LABS: Add Urine Microscopic? YES; Bilirubin Urine Neg (Negative); Blood Urine Neg (Negative); Glucose Urine UA Norm (Normal); Ketones Urine 1+ (Negative); Leukocyte Esterase Urine Trace (Negative); Nitrate Urine Negative (Negative); Protein Urine 1+ (Negative); Specific Gravity, Urine 1.005 (1.005-1.030); Urine Appearance Hazy (CLEAR); Urine Color Yellow (Yellow); Urobilinogen Urine 1 mg/dL (Negative); pH Urine 6.5 (5-7)
[2021-05-15 23:25] LABS: Add Urine Culture? Yes; Bacteria Urine 4+ /hpf; RBC Urine 0-4 /hpf (0-2)
[2021-05-15 23:33] LABS: Influenza A by IFA Negative (Negative); Influenza B by IFA Negative (Negative)
[2021-05-16] VITALS (145 sets, daily range): BP systolic 100–153; BP diastolic 56–88; PULSE 41–169; RESP 14–34; TEMP 36.4–36.6; O2SAT 83–97
[2021-05-16 04:27] LABS: Hematocrit 43.5 % (37.0-47.0); Hemoglobin 14.2 g/dL (11.5-15.3); Lymphocytes # 0.8 10^3/uL (0.8-4.8); Lymphocytes % 22.5 %; Mean Corpuscular HGB Conc 32.6 g/dL (30.0-36.0); Mean Corpuscular Hemoglobin 27.7 pg (28.0-34.0); Mean Corpuscular Volume 84.8 fl (81-99); Mean Platelet Volume 10.4 fL (7.4-10.4); Monocytes # 0.2 10^3/uL (0.2-0.9); Monocytes % 6.6 %; Neutrophils # 2.56 10^3/uL (1.8-7.7); Neutrophils % 70.4 %; Nucleated Red Blood Cells % 0 %; Platelet Count 232 10^3/cmm (130-400); Red Blood Count 5.13 10^6/uL (4.1-5.3); Red Cell Distribution Width 14.4 % (12.1-15.1); White Blood Count 3.6 10^3/uL (4.0-10.0)
[2021-05-16 04:59] LABS: INR 0.95 (0.8-1.2)
[2021-05-16 05:06] LABS: Troponin T (5th) Once 6 ng/L (0-10)
[2021-05-16 05:07] LABS: Alanine Aminotransferase 42 U/L (0-33); Albumin Level 3.7 g/dL (3.5-5.2); Alkaline Phosphatase 109 IU/L (35-105); Aspartate Amino Transferase 60 U/L (0-32); Blood Urea Nitrogen 10 mg/dL (6-20); Calcium 8.5 mg/dL (8.5-10.5); Carbon Dioxide 22 mmol/L (22-29); Chloride 102 mmol/L (98-107); Globulin 2.6 g/dL (1.3-4.6); Glomerular Filtration Rate 87.9 mL/min (90-130); Glucose 131 mg/dL (65-115); Magnesium 2.4 mg/dL (1.7-2.3); Osmolality Calculated 293 mOsm/kg (285-295); Phosphorus 2.5 mg/dL (2.5-4.5); Sodium 141 mmol/L (136-145); Total Bilirubin 0.4 mg/dL (0.15-1.2); Total Protein 6.3 g/dL (6.6-8.7)
[2021-05-16 05:27] LABS: Anion Gap 20.9 (5-19); Potassium 3.9 mmol/L (3.5-5.1)
--- NOTE | 2021-05-16 06:18 | PC.NURSE ---
Shift Summary Patient had an uneventful night, she remains on heated high flow at 45L and 85% FiO2. No wounds or skin issues noted at this time. Patient is alert and oriented x4. She voided twice overnight using the bedpan, urine was bright yellow. Right upper arm and left hand IV's are saline locked at this time.
[2021-05-16] MEDS: docusate sodium 100 mg Capsule PO ×2 (07:56→17:56)
[2021-05-16] MEDS: fluoxetine 20 mg Capsule PO (07:56)
[2021-05-16] MEDS: multivitamin therapeutic Tablet 1 TAB PO (07:56)
[2021-05-16] MEDS: cholecalciferol (vitamin D3) 1,000 unit Tablet 1000 UNIT PO (07:56)
[2021-05-16] MEDS: zinc gluconate 50 mg Tablet PO (07:56)
[2021-05-16] MEDS: ascorbic acid 500 mg Tablet PO ×2 (07:57→17:54)
[2021-05-16] MEDS: levothyroxine 150 mcg Tablet PO (07:58)
[2021-05-16] MEDS: oxybutynin chloride XL 5 MG TABLET 15 MG PO (07:58)
--- NOTE | 2021-05-16 09:05 | PC.CHAP ---
Pastoral Care Encounter/Spiritual Assessment Type of Contact [] Declined supervisor inspecting visit [] Patient/Family/Request visit [] Outpatient visit [] Follow-up visit [] Physician referral [] Code/Alert [x] Routine visit [] Staff referral [] Actively dying [] Patient sleeping [] Family support [] [] Out of room [] Palliative care [] [x] Receiving care in room [] Pre-surgical visit [] Trauma [] Long length of stay [x] ICU visit [x] Other: isolated covid Relational/Emotional Strength [] Patient feels connected with others/family/visitors/staff [] Distress [] Loneliness/isolation [] Abandonment Spirituality of Patient [] Person of Ana [] Attends Shinto of their Ana [] Believes in Prayer [] Reads Bible or Cheondoism materials [] There are Spiritual issues to be addressed Glass Edger Interventions [x] Prayer [] Active listening [] Non-anxious presence [] Spiritual/emotional support [] Crisis/trauma care [] Spiritual counseling [] Bereavement support [] Provided bereavement packet [] Provided Bible/devotional materials [] Provided toy/stuffed animal, coloring book to patient or family member [] Provided Communion [] Anointing/[place] [] Salvation [x] Completed spiritual assessment [] Other: Impact on Illness or Injury [] Angry [] Fearful [] Anxious [] Often cries [] Exhaustion [] Unable to work [] Unable to attend methodist [] Unable to walk/stand [] Unable to read [] Unable to drive [] Unable to eat/drink [] Unable to sleep [] Unable to be with family [] Patient intubated [] Other: Summary Time spent with patient
[2021-05-16] MEDS: FUROsemide 10 mg/mL SDV 4mL 40 MG IVP (09:23)
[2021-05-16] MEDS: tocilizumab 800 MG in sodium chloride 0.9% (100 ml) 100 ML 100 MG IV (10:45)
--- NOTE | 2021-05-16 14:10 | PM.PN ---
Subjective Subjective: Interval history: Patient was seen this morning, she sitting up in bed, overnight she required heated high flow with nonrebreather, this morning she is on heated high flow 60 L 100%, saturating high 80s, she did not get much sleep overnight, denies any shortness of breath, lightheadedness, dizziness, did have sinus bradycardia overnight Vitals/I&O/Wt Last Vital Signs Temp 97.6 F 05/16/21 08:00 Pulse 53 L 05/16/21 13:10 Resp 22 H 05/16/21 13:10 BP 111/62 05/16/21 13:10 Pulse Ox 93 05/16/21 13:10 05/15/21 05/16/21 05/16/21 22:59 06:59 14:59 Intake Total 60 / 60 50 / 110 440 / 440 Balance 60 / 60 50 / 110 440 / 440 Weight last 48 hrs Weight 136.078 kg Physical Exam Const: COMMON NORMALS: no acute distress and patient oriented x3 Resp: COMMON NORMALS: normal respiratory effort, No retractions, No use of accessory muscles and clear to auscultation bilaterally AUSCULTATION: clear to auscultation bilaterally Cardio: COMMON NORMALS: regular rate, regular rhythm, S1 normal heart sound present and S2 normal heart sound present RATE: regular rate RHYTHM: regular rhythm HEART SOUNDS: S1 normal heart sound present and S2 normal heart sound present GI: COMMON NORMALS: Normal to inspection, nondistended, normoactive bowel sounds present, Soft to palpation and non-tender PALPATION: Yes Soft to palpation Extremity: COMMON NORMALS: no pedal edema Neuro: COMMON NORMALS: patient oriented x3 Psych: COMMON NORMALS: mental status grossly normal Urinary Catheter Management^: [place]: Cath Placed During This Visit: yes Reason for Continuing Indwelling Catheter: Accurate Measurement of Urinary Output in Critically Ill Patients Urinary Catheter Date of Insertion: 05/16/21 Urinary Catheter Time of Insertion: 10:03 Data : 05/16/21 03:47 05/16/21 03:47 Micro: Microbiology 05/15/21 22:45 MRSA Culture - Final Nose 05/15/21 22:45 Legionella Urinary Antigen - Final Urine,Voided Bacterial Antigens - Final 05/15/21 22:40 Blood Culture - Preliminary Blood SPECIMEN COLLECTED 05/15/21 22:10 Blood Culture - Preliminary Blood SPECIMEN COLLECTED A&P Assessment and plan (1) Acute respiratory failure with hypoxia: Acute hypoxic respiratory failure secondary COVID-19 pneumonia -With evidence of acute respiratory distress syndrome -With transaminitis -Risk factors morbid obesity -Cardiac echocardiogram 2. Normal left ventricular cavity size and systolic function. Mild concentric left ventricular hypertrophy. Left ventricular ejection fraction is estimated at 55-60 %. No diagnostic regional wall motion abnormality. Normal diastolic function. 3. Normal right ventricular size and systolic function. -CT angiogram of the chest shows -1. Negative for pulmonary embolus. 2. Cholecystectomy 3. Patchy bilateral mixed interstitial and airspace infiltrates. 4. Hepatic steatosis. -ABG on pH 7.44, PCO2 40.1, PO2 60.7, bicarb 27.4 on 60% FiO2 -Patient would like to avoid intubation mechanical ventilation, but is agreeable if absolutely necessary Plan -Admit to ICU -Continue heated high flow, BiPAP as needed -Urine cultures, blood cultures, sputum cultures, urine bacterial antigen -Monitor respiratory status closely -Incentive spirometer, flutter valve -Remdesivir day 1 of 5 -Stop baricitinib, 1 dose Actemra -Decadron day 1 of 10 -Rocephin and azithromycin for secondary bacterial prophylaxis -Vitamin C, zinc, vitamin D -Full code -Lovenox for DVT prophylaxis -Patient is a high risk of intubation the next 24 -4 8 hours Hypothyroidism, continue home meds UA with possible evidence of UTI, as antibiotics as above Status: Acute (2) Acute respiratory distress syndrome: Status: Acute (3) Pneumonia due to COVID-19 virus: Status: Acute Attestations Medical Necessity Statement*: Patient requires hospitalization for acute respiratory failure secondary to COVID-19 Coding Level of Care Code Acute Manager Of Engineering for [facility] Fw Diagnoses Acute respiratory failure with hypoxia J96.01 Acute respiratory distress syndrome J80 Pneumonia due to COVID-19 virus U07.1; J12.82
[2021-05-16] MEDS: dexamethasone 10 mg/mL INJ 6 MG IVP (16:04)
--- NOTE | 2021-05-16 16:34 | USCV_ITS ---
Arlet Parker Age: 50 Gender: F : 1970 Exam Date: 05/16/2021 06:33 Ordering Phys: Gamaliel Wick MD Technologist: Micheal Mehta [place]am [place] [facility] [place] Indication: SOB BP: 117 / 79 HR: 50 Rhythm: Sinus Technical Quality: Adequate MEASUREMENTS (Male / Female) Normal Values 2D ECHO LV Diastolic Diameter PLAX 5.0 cm 4.2 - 5.9 / 3.9 - 5.3 cm LV Systolic Diameter PLAX 3.0 cm IVS Diastolic Thickness 1.3 cm 0.6 - 1.0 / 0.6 - 0.9 cm IVS Systolic Thickness 1.6 cm LVPW Diastolic Thickness 1.4 cm 0.6 - 1.0 / 0.6 - 0.9 cm LVPW Systolic Thickness 1.4 cm LVOT Diameter 2.0 cm LV Ejection Fraction 2D Teich 70.2 % LV Ejection Fraction MOD 2C 45.6 % LV Ejection Fraction 2C AL 47.2 % LA Diameter 3.2 cm LA Width 3.6 cm LA Height 4.4 cm RA Width 3.7 cm RA Height 4.7 cm Aorta at Sinotubular Diameter 2.9 cm DOPPLER AV Peak Velocity 137.0 cm/s LVOT Peak Velocity 99.0 cm/s AV Area Cont Eq vti 2.2 cm squared AV Area Cont Eq pk 2.4 cm squared MV Area PHT 5.0 cm squared Mitral E to A Ratio 1.1 MV E' Velocity 44.5 cm/s Mitral E to MV E' Ratio 8.6 Mitral E to LV E' Lateral Ratio 8.3 Mitral E to LV E' Septal Ratio 9.0 TR Peak Velocity 151.7 cm/s TR Peak Gradient 9.2 mmHg TV Peak E Velocity 87.0 cm/s Right Atrial Pressure 3.0 mmHg Pulmonary Artery Systolic Pressu 12.2 mmHg FINDINGS Left Ventricle Normal left ventricular cavity size and systolic function. Increased left ventricular wall thickness. Mild concentric left ventricular hypertrophy. Left ventricular ejection fraction is estimated at 55-60 %. No diagnostic regional wall motion abnormality. Normal diastolic function. Right Ventricle Normal right ventricular size and systolic function. Right ventricular systolic pressure 12.2 mmHg. Right Atrium Right atrium not well visualized. Left Atrium Normal left atrial size. Mitral Valve Structurally normal mitral valve. No mitral valve stenosis. Trace mitral valve regurgitation. Aortic Valve Aortic valve not well visualized. No aortic valve stenosis. No aortic valve regurgitation. Tricuspid Valve Structurally normal tricuspid valve. Pulmonic Valve Pulmonic valve not well visualized. No pulmonary valve stenosis. No pulmonary valve regurgitation. Pericardium No pericardial effusion. Aorta Normal size aortic root and proximal ascending aorta. IVC not visualized. CONCLUSIONS 1. This is a technically difficult study. 2. Normal left ventricular cavity size and systolic function. Mild concentric left ventricular hypertrophy. Left ventricular ejection fraction is estimated at 55-60 %. No diagnostic regional wall motion abnormality. Normal diastolic function. 3. Normal right ventricular size and systolic function. 4. No prior similar studies to compare. Sanaz Castro MD (Electronically Signed) Final Date: 16 May 2021 13:31 S
[2021-05-16] MEDS: remdesivir 100 MG in sodium chloride 0.9% (100 ml) 80 ML IV (18:00)
[2021-05-16] MEDS: enoxaparin 40 mg/0.4 mL Syringe SUBCUT (21:17)
[2021-05-16] MEDS: azithromycin 500 MG in sodium chloride 0.9% 250 ML 250 MG IV (21:18)
[2021-05-16] MEDS: pantoprazole 40 mg SDV IVP (21:19)
[2021-05-16] MEDS: cefTRIAXone 1,000 MG in sodium chloride 0.9% (plus) 50 ML 100 MG IV (21:19)
[2021-05-17] VITALS (186 sets, daily range): BP systolic 99–154; BP diastolic 49–84; PULSE 35–149; RESP 0–34; TEMP 36.3–36.8; O2SAT 80–99
[2021-05-17 05:34] LABS: ABG PCO2 44.4 mmHg (35-45); ABG PH Result 7.46 (7.35-7.45); Arterial Blood Gas Hematocrit 45.5 % (37-47); Base Excess ABG 6.3 mmol/L (-2.0-2.0); Blood Gas Allen Test Pos; Blood Gas Operator Identificat JB; Blood Gas Sample Site Radial, right; Blood Gas Sample Type Arterial; HCO3 ABG 31.2 mmol/L (22-26); Oxygen Device HAG; PO2 ABG 58.5 mmHg (80.0-100.0)
[2021-05-17 05:39] LABS: Hematocrit 43.7 % (37.0-47.0); Hemoglobin 14.1 g/dL (11.5-15.3); Lymphocytes # 0.9 10^3/uL (0.8-4.8); Lymphocytes % 18.6 %; Mean Corpuscular HGB Conc 32.3 g/dL (30.0-36.0); Mean Corpuscular Hemoglobin 27.8 pg (28.0-34.0); Mean Platelet Volume 10.6 fL (7.4-10.4); Monocytes # 0.4 10^3/uL (0.2-0.9); Monocytes % 8.3 %; Neutrophils # 3.67 10^3/uL (1.8-7.7); Neutrophils % 72.5 %; Nucleated Red Blood Cells % 0 %; Platelet Count 286 10^3/cmm (130-400); Red Blood Count 5.08 10^6/uL (4.1-5.3); Red Cell Distribution Width 14.6 % (12.1-15.1); White Blood Count 5.1 10^3/uL (4.0-10.0)
[2021-05-17 05:48] LABS: INR 1.05 (0.8-1.2)
[2021-05-17 06:12] LABS: NT Pro B Type Natriuretic Pept 74 pg/mL (0-125); Procalcitonin 0.05 ng/mL (0-0.5)
[2021-05-17 06:25] LABS: Alanine Aminotransferase 68 U/L (0-33); Albumin Level 3.4 g/dL (3.5-5.2); Alkaline Phosphatase 112 IU/L (35-105); Anion Gap 15.4 (5-19); Aspartate Amino Transferase 85 U/L (0-32); Blood Urea Nitrogen 16 mg/dL (6-20); C Reactive Protein 34.8 mg/L (0.0-4.9); Calcium 8.5 mg/dL (8.5-10.5); Carbon Dioxide 27 mmol/L (22-29); Chloride 103 mmol/L (98-107); Globulin 3.2 g/dL (1.3-4.6); Glomerular Filtration Rate 87.9 mL/min (90-130); Glucose 150 mg/dL (65-115); Magnesium 2.3 mg/dL (1.7-2.3); Osmolality Calculated 298 mOsm/kg (285-295); Potassium 3.4 mmol/L (3.5-5.1); Sodium 142 mmol/L (136-145); Total Bilirubin 0.5 mg/dL (0.15-1.2); Total Protein 6.6 g/dL (6.6-8.7)
[2021-05-17 06:42] LABS: Slide Review Slide Review Perform
--- NOTE | 2021-05-17 07:00 | XR_ITS ---
WS: [id number] Exam: XR chest 1V portable [id number] Date/Time of Exam: 05/17/2021 4:18 AM Reason For Exam: sob Comparison 05/15/2021. Diffuse interstitial and airspace infiltrates noted. Little change since the prior study. Cardiomedia stinal silhouette is unremarkable for technique. There may be a small left basal pleural effusion pre sent. No pneumothorax. Bony structures are intact. XR/XR chest 1V portable [id number] IMPRESSION: 1. Diffuse interstitial and airspace infiltrates throughout both lungs. No sign ificant change since the most recent study. Probable small left pleural effusio n
--- NOTE | 2021-05-17 08:12 | ECG_ITS ---
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 Measurements Intervals [place] Rate: 44 P: 44 SC: 164 QRS: 42 QRSD: 97 T: 9 QT: 510 QTc: 441 Interpretive Statements SINUS BRADYCARDIA WITH SINUS ARRHYTHMIA Compared to ECG 05/15/2021 23:32:22 No significant changes Electronically Signed On 05-18-2021 16:14:25 SERVICE GREETER by Sanaz Castro M.D. [id number]
[2021-05-17] MEDS: docusate sodium 100 mg Capsule PO ×2 (08:20→17:37)
[2021-05-17] MEDS: cholecalciferol (vitamin D3) 1,000 unit Tablet 1000 UNIT PO (08:20)
[2021-05-17] MEDS: multivitamin therapeutic Tablet 1 TAB PO (08:20)
[2021-05-17] MEDS: ascorbic acid 500 mg Tablet PO ×2 (08:20→17:37)
[2021-05-17] MEDS: zinc gluconate 50 mg Tablet PO (08:20)
[2021-05-17] MEDS: fluoxetine 20 mg Capsule PO (08:20)
[2021-05-17] MEDS: levothyroxine 150 mcg Tablet PO (08:21)
[2021-05-17] MEDS: oxybutynin chloride XL 5 MG TABLET 15 MG PO (08:21)
[2021-05-17] MEDS: potassium chloride ER 20 mEq Tablet 40 MEQ PO (08:24)
[2021-05-17] MEDS: FUROsemide 10 mg/mL SDV 4mL 40 MG IVP (08:24)
[2021-05-17] MEDS: enoxaparin 40 mg/0.4 mL Syringe SUBCUT ×2 (09:14→21:16)
[2021-05-17] MEDS: lanolin oint 7 gm 1 APPLIC TOPICAL (09:51)
--- NOTE | 2021-05-17 12:48 | PM.PN ---
Subjective Subjective: Interval history: Patient was seen this morning, she remains on 60 L 100%, she tells me she did have a good night, she is able to sleep, has a good appetite, her oxygen saturations remain in the low 90s Vitals/I&O/Wt Last Vital Signs Temp 98.2 F 05/17/21 07:35 Pulse 69 05/17/21 08:45 Resp 21 H 05/17/21 08:45 BP 125/63 05/17/21 08:45 Pulse Ox 90 05/17/21 08:45 05/16/21 05/17/21 05/17/21 22:59 06:59 14:59 Intake Total 400 / 840 75 / 915 Output Total 1300 / 1300 300 / 1600 Balance -900 / -460 -225 / -685 Weight last 48 hrs Weight 136.078 kg Physical Exam Const: COMMON NORMALS: no acute distress and patient oriented x3 Resp: COMMON NORMALS: normal respiratory effort, No retractions, No use of accessory muscles and clear to auscultation bilaterally AUSCULTATION: clear to auscultation bilaterally Cardio: COMMON NORMALS: regular rate, regular rhythm, S1 normal heart sound present and S2 normal heart sound present RATE: regular rate RHYTHM: regular rhythm HEART SOUNDS: S1 normal heart sound present and S2 normal heart sound present GI: COMMON NORMALS: Normal to inspection, nondistended, normoactive bowel sounds present, Soft to palpation and non-tender PALPATION: Yes Soft to palpation Extremity: COMMON NORMALS: no pedal edema Neuro: COMMON NORMALS: patient oriented x3 Psych: COMMON NORMALS: mental status grossly normal Urinary Catheter Management^: Pulliam: Cath Placed During This Visit: yes Reason for Continuing Indwelling Catheter: Accurate Measurement of Urinary Output in Critically Ill Patients Urinary Catheter Date of Insertion: 05/16/21 Urinary Catheter Time of Insertion: 10:03 Data : 05/17/21 05:03 05/17/21 05:03 Micro: Microbiology 05/15/21 22:45 Urine Culture - Preliminary Urine,Clean Catch Gram Negative Rods 05/15/21 22:40 Blood Culture - Preliminary Blood NEGATIVE TO DATE 05/15/21 22:10 Blood Culture - Preliminary Blood NEGATIVE TO DATE 05/15/21 22:45 MRSA Culture - Final Nose 05/15/21 22:45 Legionella Urinary Antigen - Final Urine,Voided Bacterial Antigens - Final A&P Assessment and plan (1) Acute respiratory failure with hypoxia: Acute hypoxic respiratory failure secondary COVID-19 pneumonia -With evidence of acute respiratory distress syndrome -With transaminitis -Risk factors morbid obesity -Cardiac echocardiogram 2. Normal left ventricular cavity size and systolic function. Mild concentric left ventricular hypertrophy. Left ventricular ejection fraction is estimated at 55-60 %. No diagnostic regional wall motion abnormality. Normal diastolic function. 3. Normal right ventricular size and systolic function. -CT angiogram of the chest shows -1. Negative for pulmonary embolus. 2. Cholecystectomy 3. Patchy bilateral mixed interstitial and airspace infiltrates. 4. Hepatic steatosis. -ABG on pH 7.44, PCO2 40.1, PO2 60.7, bicarb 27.4 on 60% FiO2 -Patient would like to avoid intubation mechanical ventilation, but is agreeable if absolutely necessary Plan -Admit to ICU -Continue heated high flow, BiPAP as needed -Urine cultures, blood cultures, sputum cultures, urine bacterial antigen -Monitor respiratory status closely -Incentive spirometer, flutter valve -Remdesivir day 3 of 5 -Stop baricitinib, 1 dose Actemra 05/16/2021 -Decadron day 3 of 10 -Rocephin and azithromycin for secondary bacterial prophylaxis -Vitamin C, zinc, vitamin D -1 dose of Lasix today -Full code -Lovenox for DVT prophylaxis -Patient is a high risk of intubation the next 24 -4 8 hours Hypothyroidism, continue home meds UA with possible evidence of UTI, as antibiotics as above Status: Acute (2) Acute respiratory distress syndrome: Status: Acute (3) Pneumonia due to COVID-19 virus: Status: Acute Attestations Medical Necessity Statement*: Patient requires hospitalization for COVID-19 pneumonia, acute respiratory failure, acute respiratory distress syndrome Coding Level of Care Code Acute Atmospheric Sciences Professor for [facility] Diagnoses Acute respiratory failure with hypoxia J96.01 Acute respiratory distress syndrome J80 Pneumonia due to COVID-19 virus U07.1; J12.82
[2021-05-17] MEDS: dexamethasone 10 mg/mL INJ 6 MG IVP (15:59)
[2021-05-17] MEDS: remdesivir 100 MG in sodium chloride 0.9% (100 ml) 80 ML IV (17:37)
[2021-05-17] MEDS: pantoprazole 40 mg SDV IVP (21:16)
[2021-05-17] MEDS: azithromycin 500 MG in sodium chloride 0.9% 250 ML 250 MG IV (21:16)
[2021-05-17] MEDS: cefTRIAXone 1,000 MG in sodium chloride 0.9% (plus) 50 ML 100 MG IV (21:16)
[2021-05-18] VITALS (29 sets, daily range): BP systolic 99–120; BP diastolic 54–75; PULSE 41–67; RESP 16–23; TEMP 36.6; O2SAT 89–97
[2021-05-18 05:06] LABS: Basophils % 0.2 %; Eosinophils % 0.4 %; Hematocrit 44.6 % (37.0-47.0); Hemoglobin 14.3 g/dL (11.5-15.3); Lymphocytes % 40.7 %; Mean Corpuscular HGB Conc 32.1 g/dL (30.0-36.0); Mean Corpuscular Hemoglobin 28.1 pg (28.0-34.0); Mean Corpuscular Volume 87.6 fl (81-99); Mean Platelet Volume 10.3 fL (7.4-10.4); Monocytes # 0.4 10^3/uL (0.2-0.9); Monocytes % 8.6 %; Neutrophils # 2.49 10^3/uL (1.8-7.7); Neutrophils % 49.7 %; Nucleated Red Blood Cells % 0 %; Platelet Count 269 10^3/cmm (130-400); Red Blood Count 5.09 10^6/uL (4.1-5.3); Red Cell Distribution Width 14.6 % (12.1-15.1)
[2021-05-18 05:12] LABS: INR 1.06 (0.8-1.2)
[2021-05-18 05:13] LABS: ABG PCO2 45.6 mmHg (35-45); ABG PH Result 7.46 (7.35-7.45); Arterial Blood Gas Hematocrit 45.6 % (37-47); Base Excess ABG 7.7 mmol/L (-2.0-2.0); Blood Gas Allen Test Pos; Blood Gas Operator Identificat glc; Blood Gas Sample Site Radial, right; Blood Gas Sample Type Arterial; HCO3 ABG 32.7 mmol/L (22-26); Oxygen Device HAG; PO2 ABG 86.1 mmHg (80.0-100.0)
[2021-05-18 05:30] LABS: NT Pro B Type Natriuretic Pept 65 pg/mL (0-125); Procalcitonin 0.04 ng/mL (0-0.5)
[2021-05-18 05:43] LABS: Alkaline Phosphatase 102 IU/L (35-105); Blood Urea Nitrogen 17 mg/dL (6-20); Calcium 8.7 mg/dL (8.5-10.5); Carbon Dioxide 29 mmol/L (22-29); Chloride 102 mmol/L (98-107); Glucose 104 mg/dL (65-115); Magnesium 2.3 mg/dL (1.7-2.3); Sodium 142 mmol/L (136-145); Total Bilirubin 0.4 mg/dL (0.15-1.2)
[2021-05-18 07:10] LABS: Anion Gap 14.4 (5-19); Glomerular Filtration Rate 87.9 mL/min (90-130); Osmolality Calculated 298 mOsm/kg (285-295); Potassium 3.4 mmol/L (3.5-5.1)
[2021-05-18 07:11] LABS: Alanine Aminotransferase 91 U/L (0-33); Albumin Level 3.4 g/dL (3.5-5.2); Aspartate Amino Transferase 115 U/L (0-32); C Reactive Protein 16.8 mg/L (0.0-4.9); Globulin 2.5 g/dL (1.3-4.6); Phosphorus 2.4 mg/dL (2.5-4.5); Total Protein 5.9 g/dL (6.6-8.7)
[2021-05-18] MEDS: ascorbic acid 500 mg Tablet PO ×2 (08:05→17:55)
[2021-05-18] MEDS: docusate sodium 100 mg Capsule PO ×2 (08:05→17:55)
[2021-05-18] MEDS: potassium chloride ER 20 mEq Tablet 40 MEQ PO (08:05)
[2021-05-18] MEDS: cholecalciferol (vitamin D3) 1,000 unit Tablet 1000 UNIT PO (08:05)
[2021-05-18] MEDS: multivitamin therapeutic Tablet 1 TAB PO (08:05)
[2021-05-18] MEDS: fluoxetine 20 mg Capsule PO (08:05)
[2021-05-18] MEDS: zinc gluconate 50 mg Tablet PO (08:05)
[2021-05-18] MEDS: FUROsemide 10 mg/mL SDV 4mL 40 MG IVP (08:05)
[2021-05-18] MEDS: levothyroxine 150 mcg Tablet PO (08:05)
[2021-05-18] MEDS: oxybutynin chloride XL 5 MG TABLET 15 MG PO (08:05)
[2021-05-18] MEDS: ondansetron 2 mg/ML SDV 2 mL 4 MG IVP ×2 (08:22→14:19)
[2021-05-18] MEDS: enoxaparin 40 mg/0.4 mL Syringe SUBCUT ×2 (10:41→21:03)
--- NOTE | 2021-05-18 12:20 | PC.CHAP ---
Pastoral Care Encounter/Spiritual Assessment Type of Contact [] Declined metal sprayer visit [] Patient/Family/Request visit [] Outpatient visit [xx] Follow-up visit [] Physician referral [] Code/Alert [] Routine visit [] Staff referral [] Actively dying [] Patient sleeping [] Family support [] [] Out of room [] Palliative care [] [] Receiving care in room [] Pre-surgical visit [] Trauma [] Long length of stay [xx] ICU visit [] Other: isolation Relational/Emotional Strength [] Patient feels connected with others/family/visitors/staff [] Distress [] Loneliness/isolation [] Abandonment Spirituality of Patient [] Person of Ana [] Attends [employer]eterian of their Ana [] Believes in Prayer [] Reads Bible or Oriental Orthodox materials [] There are Spiritual issues to be addressed Superintendent [employer] Interventions [xx] Prayer [] Active listening [] Non-anxious presence [] Spiritual/emotional support [] Crisis/trauma care [] Spiritual counseling [] Bereavement support [] Provided bereavement packet [] Provided Bible/devotional materials [] Provided toy/stuffed animal, coloring book to patient or family member [] Provided Communion [] Anointing/[place] [] Salvation [] Completed spiritual assessment [] Other: Impact on Illness or Injury [] Angry [] Fearful [] Anxious [] Often cries [] Exhaustion [] Unable to work [] Unable to attend confucianism [] Unable to walk/stand [] Unable to read [] Unable to drive [] Unable to eat/drink [] Unable to sleep [] Unable to be with family [] Patient intubated [] Other: Summary Patient isolated so metal sprayer prayed outside of room. Time spent with patient 1 minute
--- NOTE | 2021-05-18 12:46 | PM.PN ---
Subjective Subjective: Interval history: Patient was seen this morning, denies any fevers, no chills, no nausea, vomiting, she is down to 80% FiO2 Vitals/I&O/Wt Last Vital Signs Temp 98.1 F 05/17/21 12:35 Pulse 49 L 05/18/21 11:07 Resp 18 05/18/21 11:07 BP 120/60 05/18/21 08:00 Pulse Ox 92 05/18/21 11:07 05/17/21 05/18/21 05/18/21 22:59 06:59 14:59 Intake Total 400 / 400 1420 / 1820 240 / 240 Output Total 1450 / 1450 225 / 1675 Balance -1050 / -1050 1195 / 145 240 / 240 Physical Exam Const: COMMON NORMALS: no acute distress and patient oriented x3 Resp: COMMON NORMALS: normal respiratory effort, No retractions, No use of accessory muscles and clear to auscultation bilaterally AUSCULTATION: clear to auscultation bilaterally Cardio: COMMON NORMALS: regular rate, regular rhythm, S1 normal heart sound present and S2 normal heart sound present RATE: regular rate RHYTHM: regular rhythm HEART SOUNDS: S1 normal heart sound present and S2 normal heart sound present GI: COMMON NORMALS: Normal to inspection, nondistended, normoactive bowel sounds present, Soft to palpation and non-tender PALPATION: Yes Soft to palpation Extremity: COMMON NORMALS: no pedal edema Neuro: COMMON NORMALS: patient oriented x3 Psych: COMMON NORMALS: mental status grossly normal Urinary Catheter Management^: Pulliam: Cath Placed During This Visit: yes Reason for Continuing Indwelling Catheter: Accurate Measurement of Urinary Output in Critically Ill Patients Urinary Catheter Date of Insertion: 05/16/21 Urinary Catheter Time of Insertion: 10:03 Data : 05/18/21 04:37 05/18/21 04:37 Micro: Microbiology 05/15/21 22:45 Urine Culture - Final Urine,Clean Catch Escherichia coli A&P Assessment and plan (1) Acute respiratory failure with hypoxia: Acute hypoxic respiratory failure secondary COVID-19 pneumonia -With evidence of acute respiratory distress syndrome -With transaminitis -Risk factors morbid obesity -Cardiac echocardiogram 2. Normal left ventricular cavity size and systolic function. Mild concentric left ventricular hypertrophy. Left ventricular ejection fraction is estimated at 55-60 %. No diagnostic regional wall motion abnormality. Normal diastolic function. 3. Normal right ventricular size and systolic function. -CT angiogram of the chest shows -1. Negative for pulmonary embolus. 2. Cholecystectomy 3. Patchy bilateral mixed interstitial and airspace infiltrates. 4. Hepatic steatosis. -Patient would like to avoid intubation mechanical ventilation, but is agreeable if absolutely necessary Plan -Admit to ICU -Continue heated high flow, BiPAP as needed -Urine cultures, blood cultures, sputum cultures, urine bacterial antigen -Monitor respiratory status closely -Incentive spirometer, flutter valve -Remdesivir day 4 of 5 -Stop baricitinib, 1 dose Actemra 05/16/2021 -Decadron day 4 of 10 -Rocephin and azithromycin for secondary bacterial prophylaxis -Vitamin C, zinc, vitamin D -1 dose of Lasix today -Full code -Lovenox for DVT prophylaxis -Patient is a high risk of intubation Hypothyroidism, continue home meds Sinus bradycardia, currently asymptomatic, no hemodynamic compromise, continue to monitor, echocardiogram shows mild LVH UA with possible evidence of UTI, as antibiotics as above Status: Acute (2) Acute respiratory distress syndrome: Status: Acute (3) Pneumonia due to COVID-19 virus: Status: Acute Attestations Medical Necessity Statement*: Patient requires hospitalization for acute respiratory failure secondary COVID-19 pneumonia Coding Level of Care Code Acute Manager Bilingual for rashid Pedroza Diagnoses Acute respiratory failure with hypoxia J96.01 Acute respiratory distress syndrome J80 Pneumonia due to COVID-19 virus U07.1; J12.82
[2021-05-18] MEDS: dexamethasone 10 mg/mL INJ 6 MG IVP (13:41)
[2021-05-18] MEDS: remdesivir 100 MG in sodium chloride 0.9% (100 ml) 80 ML IV (17:55)
[2021-05-18] MEDS: cefTRIAXone 1,000 MG in sodium chloride 0.9% (plus) 50 ML 100 MG IV (21:03)
[2021-05-18] MEDS: pantoprazole 40 mg SDV IVP (21:04)
[2021-05-18] MEDS: azithromycin 500 MG in sodium chloride 0.9% 250 ML 250 MG IV (21:36)
[2021-05-19] VITALS (22 sets, daily range): BP systolic 101–145; BP diastolic 58–83; PULSE 40–61; RESP 15–25; TEMP 36.5–36.6; O2SAT 88–98
[2021-05-19 04:51] LABS: Basophils % 0.2 %; Eosinophils % 0.2 %; Hematocrit 44.1 % (37.0-47.0); Lymphocytes % 24.8 %; Mean Corpuscular HGB Conc 31.7 g/dL (30.0-36.0); Mean Corpuscular Hemoglobin 27.3 pg (28.0-34.0); Mean Corpuscular Volume 86.1 fl (81-99); Mean Platelet Volume 10.4 fL (7.4-10.4); Monocytes # 0.3 10^3/uL (0.2-0.9); Monocytes % 7.4 %; Neutrophils # 2.68 10^3/uL (1.8-7.7); Neutrophils % 66.4 %; Nucleated Red Blood Cells % 0 %; Platelet Count 301 10^3/cmm (130-400); Red Blood Count 5.12 10^6/uL (4.1-5.3); Red Cell Distribution Width 13.9 % (12.1-15.1)
[2021-05-19 05:03] LABS: INR 1.03 (0.8-1.2)
[2021-05-19 05:23] LABS: NT Pro B Type Natriuretic Pept 43 pg/mL (0-125); Procalcitonin 0.03 ng/mL (0-0.5)
[2021-05-19 05:24] LABS: Alanine Aminotransferase 97 U/L (0-33); Albumin Level 3.2 g/dL (3.5-5.2); Alkaline Phosphatase 99 IU/L (35-105); Aspartate Amino Transferase 69 U/L (0-32); Blood Urea Nitrogen 17 mg/dL (6-20); C Reactive Protein 10.8 mg/L (0.0-4.9); Calcium 8.4 mg/dL (8.5-10.5); Carbon Dioxide 27 mmol/L (22-29); Chloride 102 mmol/L (98-107); Glomerular Filtration Rate 87.9 mL/min (90-130); Glucose 123 mg/dL (65-115); Magnesium 2.1 mg/dL (1.7-2.3); NT Pro B Type Natriuretic Pept 42 pg/mL (0-125); Osmolality Calculated 293 mOsm/kg (285-295); Phosphorus 2.9 mg/dL (2.5-4.5); Sodium 140 mmol/L (136-145); Total Bilirubin 0.4 mg/dL (0.15-1.2); Total Protein 6.2 g/dL (6.6-8.7)
[2021-05-19 05:34] LABS: Creatine Phosphokinase 24 U/L (26-192)
[2021-05-19 05:38] LABS: ABG PCO2 46.3 mmHg (35-45); ABG PH Result 7.48 (7.35-7.45); Arterial Blood Gas Hematocrit 45.5 % (37-47); Base Excess ABG 9.4 mmol/L (-2.0-2.0); Blood Gas Allen Test Pos; Blood Gas Sample Site Radial, right; Blood Gas Sample Type Arterial; HCO3 ABG 34.4 mmol/L (22-26); Oxygen Device CAG; PO2 ABG 65.2 mmHg (80.0-100.0)
--- NOTE | 2021-05-19 07:00 | XRR_ITS ---
PROCEDURE INFORMATION: Exam: XR Chest Exam date and time: 05/19/2021 7:00 AM Age: 50 years old Clinical indication: Shortness of breath; Patient HX: F/u covid pneumonia; Additional info: SOB TECHNIQUE: Imaging protocol: XR of the chest. Views: 1 view. COMPARISON: CR XR chest 1V portable [id number] 05/17/2021 4:41 AM FINDINGS: Lungs: Stable bilateral pulmonary infiltrates. Pleural spaces: Unremarkable. No pleural effusion. No pneumothorax. Heart/Mediastinum: There is mild cardiomegaly. Bones/joints: Unremarkable. XR/XR chest 1V portable [id number] IMPRESSION: 1. Mild cardiomegaly. 2. Stable bilateral pulmonary infiltrates. Radiation Dose CTDIVOL = (mGy): DLP = (mGy-cm)
[2021-05-19] MEDS: docusate sodium 100 mg Capsule PO ×2 (08:34→17:03)
[2021-05-19] MEDS: cholecalciferol (vitamin D3) 1,000 unit Tablet 1000 UNIT PO (08:34)
[2021-05-19] MEDS: ascorbic acid 500 mg Tablet PO ×2 (08:34→17:03)
[2021-05-19] MEDS: multivitamin therapeutic Tablet 1 TAB PO (08:34)
[2021-05-19] MEDS: zinc gluconate 50 mg Tablet PO (08:34)
[2021-05-19] MEDS: fluoxetine 20 mg Capsule PO (08:34)
[2021-05-19] MEDS: FUROsemide 10 mg/mL SDV 2mL 20 MG IVP (08:34)
[2021-05-19] MEDS: levothyroxine 150 mcg Tablet PO (08:35)
[2021-05-19] MEDS: oxybutynin chloride XL 5 MG TABLET 15 MG PO (09:57)
[2021-05-19] MEDS: enoxaparin 40 mg/0.4 mL Syringe SUBCUT ×2 (09:57→21:37)
[2021-05-19] MEDS: dexamethasone 10 mg/mL INJ 6 MG IVP (14:31)
[2021-05-19] MEDS: azithromycin 250 mg Tablet PO (15:46)
[2021-05-19] MEDS: remdesivir 100 MG in sodium chloride 0.9% (100 ml) 80 ML IV (17:03)
--- NOTE | 2021-05-19 17:41 | PM.PN ---
Subjective Subjective: Interval history: Patient was seen this morning, she tells me she is doing quite well, she has slept well last night, no fevers, chills, nausea, vomiting, her oxygen requirements are decreasing, Vitals/I&O/Wt Last Vital Signs Temp 97.7 F 05/19/21 04:00 Pulse 50 L 05/19/21 16:09 Resp 16 05/19/21 16:09 BP 110/68 05/19/21 16:00 Pulse Ox 90 05/19/21 16:09 05/19/21 05/19/21 05/19/21 06:59 14:59 22:59 Intake Total 180 / 180 Output Total 640 / 2090 850 / 850 Balance -640 / -970 -670 / -670 Physical Exam Const: COMMON NORMALS: no acute distress and patient oriented x3 Resp: COMMON NORMALS: normal respiratory effort, No retractions, No use of accessory muscles and clear to auscultation bilaterally AUSCULTATION: clear to auscultation bilaterally Cardio: COMMON NORMALS: regular rate, regular rhythm, S1 normal heart sound present and S2 normal heart sound present RATE: regular rate RHYTHM: regular rhythm HEART SOUNDS: S1 normal heart sound present and S2 normal heart sound present GI: COMMON NORMALS: Normal to inspection, nondistended, normoactive bowel sounds present, Soft to palpation, non-tender and No hepatosplenomegaly present PALPATION: Yes Soft to palpation and Yes No hepatosplenomegaly present Extremity: COMMON NORMALS: no pedal edema Neuro: COMMON NORMALS: patient oriented x3 Psych: COMMON NORMALS: mental status grossly normal Urinary Catheter Management^: Pulliam: Cath Placed During This Visit: yes Reason for Continuing Indwelling Catheter: Accurate Measurement of Urinary Output in Critically Ill Patients Urinary Catheter Date of Insertion: 05/16/21 Urinary Catheter Time of Insertion: 10:03 Data : 05/19/21 04:19 05/19/21 04:19 A&P Assessment and plan (1) Acute respiratory failure with hypoxia: Acute hypoxic respiratory failure secondary COVID-19 pneumonia -With evidence of acute respiratory distress syndrome -With transaminitis -Risk factors morbid obesity -Cardiac echocardiogram 2. Normal left ventricular cavity size and systolic function. Mild concentric left ventricular hypertrophy. Left ventricular ejection fraction is estimated at 55-60 %. No diagnostic regional wall motion abnormality. Normal diastolic function. 3. Normal right ventricular size and systolic function. -CT angiogram of the chest shows -1. Negative for pulmonary embolus. 2. Cholecystectomy 3. Patchy bilateral mixed interstitial and airspace infiltrates. 4. Hepatic steatosis. -Patient would like to avoid intubation mechanical ventilation, but is agreeable if absolutely necessary -Patient's oxygen requirements are decreasing, she is clinically improving Plan -We will moved to general medical floors -Continue heated high flow, BiPAP as needed -Urine cultures, blood cultures, sputum cultures, urine bacterial antigen -Monitor respiratory status closely -Incentive spirometer, flutter valve -Remdesivir day 5 of 5 -Stop baricitinib, 1 dose Actemra 05/16/2021 -Decadron day 5 of 10 -Rocephin and azithromycin for secondary bacterial prophylaxis -Vitamin C, zinc, vitamin D -1 dose of Lasix today -Full code -Lovenox for DVT prophylaxis -Patient is a high risk of intubation Hypothyroidism, continue home meds Sinus bradycardia, currently asymptomatic, no hemodynamic compromise, continue to monitor, echocardiogram shows mild LVH UA with possible evidence of UTI, as antibiotics as above Status: Acute (2) Acute respiratory distress syndrome: Status: Acute (3) Pneumonia due to COVID-19 virus: Status: Acute Attestations Medical Necessity Statement*: Patient has hospitalization for acute respiratory failure secondary COVID-19 Coding Level of Care Code Acute Brush Clearer Surveying for rashid Pedroza Diagnoses Acute respiratory failure with hypoxia J96.01 Acute respiratory distress syndrome J80 Pneumonia due to COVID-19 virus U07.1; J12.82
[2021-05-19] MEDS: cefTRIAXone 1,000 MG in sodium chloride 0.9% (plus) 50 ML 100 MG IV (21:37)
[2021-05-19] MEDS: pantoprazole 40 mg SDV IVP (23:47)
--- NOTE | 2021-05-19 23:47 | PC.NURSE ---
protonix admin for primary nurse per mar
[2021-05-20] VITALS (11 sets, daily range): BP systolic 90–112; BP diastolic 53–79; PULSE 46–65; RESP 17–22; TEMP 36.4–36.9; O2SAT 91–96
[2021-05-20 07:02] LABS: Basophils % 0.2 %; Eosinophils % 0.2 %; Hematocrit 44.4 % (37.0-47.0); Hemoglobin 14.2 g/dL (11.5-15.3); Lymphocytes # 1.3 10^3/uL (0.8-4.8); Lymphocytes % 26.3 %; Mean Corpuscular Hemoglobin 27.5 pg (28.0-34.0); Mean Platelet Volume 10.3 fL (7.4-10.4); Monocytes # 0.4 10^3/uL (0.2-0.9); Monocytes % 7.2 %; Neutrophils # 3.17 10^3/uL (1.8-7.7); Neutrophils % 65.1 %; Nucleated Red Blood Cells % 0 %; Platelet Count 292 10^3/cmm (130-400); Red Blood Count 5.16 10^6/uL (4.1-5.3); Red Cell Distribution Width 13.9 % (12.1-15.1); White Blood Count 4.9 10^3/uL (4.0-10.0)
[2021-05-20 07:45] LABS: Alanine Aminotransferase 85 U/L (0-33); Albumin Level 3.5 g/dL (3.5-5.2); Alkaline Phosphatase 86 IU/L (35-105); Aspartate Amino Transferase 46 U/L (0-32); Blood Urea Nitrogen 16 mg/dL (6-20); C Reactive Protein 6.9 mg/L (0.0-4.9); Calcium 8.4 mg/dL (8.5-10.5); Carbon Dioxide 31 mmol/L (22-29); Chloride 96 mmol/L (98-107); Globulin 2.5 g/dL (1.3-4.6); Glucose 108 mg/dL (65-115); Magnesium 2.1 mg/dL (1.7-2.3); Osmolality Calculated 280 mOsm/kg (285-295); Phosphorus 2.9 mg/dL (2.5-4.5); Sodium 134 mmol/L (136-145); Total Bilirubin 0.5 mg/dL (0.15-1.2)
[2021-05-20 07:46] LABS: Lactate (Lactic Acid level) 0.8 mmol/L (0.5-2.2); NT Pro B Type Natriuretic Pept 47 pg/mL (0-125); Procalcitonin 0.04 ng/mL (0-0.5)
[2021-05-20 07:57] LABS: Creatine Phosphokinase 23 U/L (26-192)
[2021-05-20 08:02] LABS: Anion Gap 10.6 (5-19); Potassium 3.6 mmol/L (3.5-5.1)
[2021-05-20] MEDS: zinc gluconate 50 mg Tablet PO (09:57)
[2021-05-20] MEDS: oxybutynin chloride XL 5 MG TABLET 15 MG PO (09:57)
[2021-05-20] MEDS: docusate sodium 100 mg Capsule PO ×2 (09:58→17:36)
[2021-05-20] MEDS: multivitamin therapeutic Tablet 1 TAB PO (09:58)
[2021-05-20] MEDS: levothyroxine 150 mcg Tablet PO (09:58)
[2021-05-20] MEDS: ascorbic acid 500 mg Tablet PO ×2 (09:58→17:36)
[2021-05-20] MEDS: cholecalciferol (vitamin D3) 1,000 unit Tablet 1000 UNIT PO (09:58)
[2021-05-20] MEDS: fluoxetine 20 mg Capsule PO (09:58)
[2021-05-20] MEDS: FUROsemide 10 mg/mL SDV 4mL 40 MG IVP (10:39)
[2021-05-20] MEDS: potassium chloride ER 20 mEq Tablet 40 MEQ PO (10:40)
[2021-05-20] MEDS: enoxaparin 40 mg/0.4 mL Syringe SUBCUT ×2 (10:40→21:00)
[2021-05-20] MEDS: azithromycin 250 mg Tablet PO (14:29)
[2021-05-20] MEDS: dexamethasone 10 mg/mL INJ 6 MG IVP (14:30)
--- NOTE | 2021-05-20 15:32 | P.PN_ITS ---
Subjective Subjective: Interval history: Patient was seen this morning, she is currently doing better, on 7 to 8 L, no fevers, chills, nausea, vomiting, Vitals/I&O/Wt Last Vital Signs Temp 97.6 F 05/20/21 12:00 Pulse 55 L 05/20/21 14:29 Resp 18 05/20/21 14:29 BP 111/56 05/20/21 12:00 Pulse Ox 93 05/20/21 14:29 05/20/21 05/20/21 05/20/21 06:59 14:59 22:59 Intake Total 0 / 810 240 / 240 Output Total 450 / 1550 Balance -450 / -740 240 / 240 Physical Exam Const: COMMON NORMALS: no acute distress and patient oriented x3 HENMT: COMMON NORMALS: normocephalic HEAD & SCALP: normocephalic Resp: COMMON NORMALS: normal respiratory effort, No retractions, No use of accessory muscles and clear to auscultation bilaterally AUSCULTATION: clear to auscultation bilaterally Cardio: COMMON NORMALS: regular rate, regular rhythm, S1 normal heart sound present and S2 normal heart sound present RATE: regular rate RHYTHM: regular rhythm HEART SOUNDS: S1 normal heart sound present and S2 normal heart sound present GI: COMMON NORMALS: Normal to inspection, nondistended, normoactive bowel sounds present, Soft to palpation and non-tender PALPATION: Yes Soft to palpation Extremity: COMMON NORMALS: no pedal edema Neuro: COMMON NORMALS: patient oriented x3 Psych: COMMON NORMALS: mental status grossly normal Urinary Catheter Management^: Pulliam: Cath Placed During This Visit: yes Reason for Continuing Indwelling Catheter: Acute Urinary Retention or Obstruction Urinary Catheter Date of Insertion: 05/16/21 Urinary Catheter Time of Insertion: 10:03 Data : 05/20/21 06:24 05/20/21 06:24 A&P Assessment and plan (1) Acute respiratory failure with hypoxia: Acute hypoxic respiratory failure secondary COVID-19 pneumonia -With evidence of acute respiratory distress syndrome -With transaminitis -Risk factors morbid obesity -Cardiac echocardiogram 2. Normal left ventricular cavity size and systolic function. Mild concentric left ventricular hypertrophy. Left ventricular ejection fraction is estimated at 55-60 %. No diagnostic regional wall motion abnormality. Normal diastolic function. 3. Normal right ventricular size and systolic function. -CT angiogram of the chest shows -1. Negative for pulmonary embolus. 2. Cholecystectomy 3. Patchy bilateral mixed interstitial and airspace infiltrates. 4. Hepatic steatosis. -Patient would like to avoid intubation mechanical ventilation, but is agreeable if absolutely necessary -Patient's oxygen requirements are decreasing, she is clinically improving Plan -We will moved to general medical floors -Continue heated high flow, BiPAP as needed -Urine cultures, blood cultures, sputum cultures, urine bacterial antigen -Monitor respiratory status closely -Incentive spirometer, flutter valve -Remdesivir day 5 of 5 -Stop baricitinib after 3 doses, 1 dose Actemra 05/16/2021 -Decadron day 6 of 10 -Rocephin and azithromycin for secondary bacterial prophylaxis -Vitamin C, zinc, vitamin D -1 dose of Lasix today -Full code -Lovenox for DVT prophylaxis -Can discharge in the next 24 to 48 hours Hypothyroidism, continue home meds Sinus bradycardia, currently asymptomatic, no hemodynamic compromise, continue to monitor, echocardiogram shows mild LVH UA with possible evidence of UTI, as antibiotics as above Status: Acute (2) Acute respiratory distress syndrome: Status: Acute (3) Pneumonia due to COVID-19 virus: Status: Acute Attestations Medical Necessity Statement*: Patient requires hospitalization for COVID-19 pneumonia Coding Level of Care Code Acute Educational Program Assistant for Yomaira Pedroza Diagnoses Acute respiratory failure with hypoxia J96.01 Acute respiratory distress syndrome J80 Pneumonia due to COVID-19 virus U07.1; J12.82
[2021-05-20] MEDS: cefTRIAXone 1,000 MG in sodium chloride 0.9% (plus) 50 ML 100 MG IV (21:00)
[2021-05-20] MEDS: pantoprazole 40 mg SDV IVP (21:49)
[2021-05-21] VITALS (11 sets, daily range): BP systolic 95–119; BP diastolic 64–79; PULSE 42–73; RESP 16–20; TEMP 36.4–36.9; O2SAT 90–97
[2021-05-21 06:29] LABS: Basophils % 0.3 %; Eosinophils % 0.7 %; Hematocrit 44.9 % (37.0-47.0); Hemoglobin 14.7 g/dL (11.5-15.3); Lymphocytes # 1.4 10^3/uL (0.8-4.8); Lymphocytes % 22.8 %; Mean Corpuscular HGB Conc 32.7 g/dL (30.0-36.0); Mean Corpuscular Hemoglobin 28.1 pg (28.0-34.0); Mean Corpuscular Volume 85.7 fl (81-99); Mean Platelet Volume 10.4 fL (7.4-10.4); Monocytes # 0.4 10^3/uL (0.2-0.9); Monocytes % 7.3 %; Neutrophils # 4.08 10^3/uL (1.8-7.7); Neutrophils % 67.2 %; Nucleated Red Blood Cells % 0 %; Platelet Count 317 10^3/cmm (130-400); Red Blood Count 5.24 10^6/uL (4.1-5.3); Red Cell Distribution Width 13.7 % (12.1-15.1); White Blood Count 6.1 10^3/uL (4.0-10.0)
[2021-05-21 06:49] LABS: NT Pro B Type Natriuretic Pept 48 pg/mL (0-125); Procalcitonin 0.04 ng/mL (0-0.5)
[2021-05-21 07:02] LABS: Alanine Aminotransferase 79 U/L (0-33); Albumin Level 3.4 g/dL (3.5-5.2); Alkaline Phosphatase 86 IU/L (35-105); Anion Gap 12.6 (5-19); Aspartate Amino Transferase 32 U/L (0-32); Blood Urea Nitrogen 18 mg/dL (6-20); C Reactive Protein 4.8 mg/L (0.0-4.9); Calcium 8.8 mg/dL (8.5-10.5); Carbon Dioxide 32 mmol/L (22-29); Chloride 99 mmol/L (98-107); Creatine Phosphokinase 17 U/L (26-192); Globulin 2.6 g/dL (1.3-4.6); Glomerular Filtration Rate 87.9 mL/min (90-130); Glucose 109 mg/dL (65-115); Magnesium 2.2 mg/dL (1.7-2.3); Osmolality Calculated 292 mOsm/kg (285-295); Potassium 3.6 mmol/L (3.5-5.1); Sodium 140 mmol/L (136-145); Total Bilirubin 0.4 mg/dL (0.15-1.2)
[2021-05-21 07:35] LABS: Lactate (Lactic Acid level) 1.2 mmol/L (0.5-2.2)
[2021-05-21] MEDS: oxybutynin chloride XL 5 MG TABLET 15 MG PO (08:35)
[2021-05-21] MEDS: docusate sodium 100 mg Capsule PO ×2 (08:35→18:05)
[2021-05-21] MEDS: cholecalciferol (vitamin D3) 1,000 unit Tablet 1000 UNIT PO (08:35)
[2021-05-21] MEDS: levothyroxine 150 mcg Tablet PO (08:35)
[2021-05-21] MEDS: fluoxetine 20 mg Capsule PO (08:35)
[2021-05-21] MEDS: multivitamin therapeutic Tablet 1 TAB PO (08:35)
[2021-05-21] MEDS: ascorbic acid 500 mg Tablet PO ×2 (08:35→18:05)
[2021-05-21] MEDS: zinc gluconate 50 mg Tablet PO (08:35)
[2021-05-21] MEDS: enoxaparin 40 mg/0.4 mL Syringe SUBCUT ×2 (10:35→21:43)
[2021-05-21] MEDS: azithromycin 250 mg Tablet PO (14:30)
[2021-05-21] MEDS: dexamethasone 10 mg/mL INJ 6 MG IVP (14:30)
--- NOTE | 2021-05-21 16:39 | PM.PN ---
Subjective Subjective: Interval history: Patient was seen and examined this morning, continues to do better, supplemental oxygen requirement, is continuously decreasing, patient denies any worsening shortness of breath, has been ambulating to bathroom, without significant shortness of breath. Continues to be in asymptomatic sinus bradycardia, her other vitals and labs have been reviewed. Medications: Reviewed: Yes Vitals/I&O/Wt Last Vital Signs Temp 97.7 F 05/21/21 15:22 Pulse 59 L 05/21/21 15:22 Resp 20 H 05/21/21 15:22 BP 109/64 05/21/21 15:22 Pulse Ox 90 05/21/21 15:22 05/21/21 05/21/21 05/21/21 06:59 14:59 22:59 Intake Total 0 / 1130 120 / 120 Output Total 0 / 1675 Balance 0 / -545 120 / 120 Physical Exam Const: COMMON NORMALS: patient oriented x3 HENMT: COMMON NORMALS: normocephalic and atraumatic HEAD & SCALP: normocephalic and atraumatic Resp: OTHER: Diminished air entry bilaterally Cardio: COMMON NORMALS: regular rate, regular rhythm, S1 normal heart sound present, S2 normal heart sound present, No gallops present (Cardio), No murmurs present (Cardio), No rub (Cardio) and Peripheral pulses 2+ throughout RATE: regular rate RHYTHM: regular rhythm HEART SOUNDS: S1 normal heart sound present and S2 normal heart sound present PERIPHERAL PULSES: Peripheral pulses 2+ throughout GI: COMMON NORMALS: Normal to inspection, nondistended, normoactive bowel sounds present, Soft to palpation, non-tender, No hepatosplenomegaly present and no masses AUSCULTATION: Yes normoactive bowel sounds PALPATION: Yes Soft to palpation and Yes No hepatosplenomegaly present RECTAL EXAM: deferred Extremity: COMMON NORMALS: no clubbing, cyanosis or edema and no pedal edema Neuro: COMMON NORMALS: patient oriented x3 Urinary Catheter Management^: Pulliam: Cath Placed During This Visit: yes, but has since been removed by the nurse Reason for Continuing Indwelling Catheter: Acute Urinary Retention or Obstruction Urinary Catheter Date of Insertion: 05/16/21 Urinary Catheter Time of Insertion: 10:03 Date Urinary Catheter Removed: 05/20/21 Time Urinary Catheter Discontinued: 15:45 Data : 05/21/21 05:40 05/21/21 05:40 Micro: Microbiology 05/15/21 22:40 Blood Culture - Final Blood NO GROWTH AFTER 5 DAYS 05/15/21 22:10 Blood Culture - Final Blood NO GROWTH AFTER 5 DAYS A&P Assessment and plan (1) Acute respiratory failure with hypoxia: Acute hypoxic respiratory failure secondary COVID-19 pneumonia -With evidence of acute respiratory distress syndrome -With transaminitis -Risk factors morbid obesity -Cardiac echocardiogram 2. Normal left ventricular cavity size and systolic function. Mild concentric left ventricular hypertrophy. Left ventricular ejection fraction is estimated at 55-60 %. No diagnostic regional wall motion abnormality. Normal diastolic function. 3. Normal right ventricular size and systolic function. -CT angiogram of the chest shows -1. Negative for pulmonary embolus. 2. Cholecystectomy 3. Patchy bilateral mixed interstitial and airspace infiltrates. 4. Hepatic steatosis. -Patient would like to avoid intubation mechanical ventilation, but is agreeable if absolutely necessary -Patient's oxygen requirements are decreasing, she is clinically improving Plan -We will moved to general medical floors -Continue heated high flow, BiPAP as needed -Urine cultures, blood cultures, sputum cultures, urine bacterial antigen -Monitor respiratory status closely -Incentive spirometer, flutter valve -Remdesivir day 5 of 5 -Stop baricitinib after 3 doses, 1 dose Actemra 05/16/2021 -Decadron day 6 of 10 -Rocephin and azithromycin for secondary bacterial prophylaxis -Vitamin C, zinc, vitamin D -1 dose of Lasix today -Full code -Lovenox for DVT prophylaxis -Can discharge in the next 24 to 48 hours Hypothyroidism, continue home meds Sinus bradycardia, currently asymptomatic, no hemodynamic compromise, continue to monitor, echocardiogram shows mild LVH UA with possible evidence of UTI, as antibiotics as above Status: Acute (2) Acute respiratory distress syndrome: Status: Acute (3) Pneumonia due to COVID-19 virus: Status: Acute Attestations Medical Necessity Statement*: Patient needs to be in hospital for management of Covid pneumonia. Coding Level of Care Code Acute Contracting Specialist for Yomaira Pedroza Diagnoses Acute respiratory failure with hypoxia J96.01 Acute respiratory distress syndrome J80 Pneumonia due to COVID-19 virus U07.1; J12.82
[2021-05-21] MEDS: cefTRIAXone 1,000 MG in sodium chloride 0.9% (plus) 50 ML 100 MG IV (21:43)
[2021-05-21] MEDS: pantoprazole 40 mg SDV IVP (22:16)
[2021-05-22] VITALS: BP 99/61; PULSE 60; RESP 16; TEMP 36.8; O2SAT 91
[2021-05-22 04:00] VITALS: BP 100/63; PULSE 60; RESP 16; TEMP 36.7; O2SAT 91
[2021-05-22 08:00] VITALS: BP 105/73; PULSE 76; RESP 16; TEMP 36.6; O2SAT 93
[2021-05-22] MEDS: docusate sodium 100 mg Capsule PO (09:08)
[2021-05-22] MEDS: levothyroxine 150 mcg Tablet PO (09:09)
[2021-05-22] MEDS: enoxaparin 40 mg/0.4 mL Syringe SUBCUT (09:09)
[2021-05-22] MEDS: oxybutynin chloride XL 5 MG TABLET 15 MG PO (09:09)
[2021-05-22] MEDS: fluoxetine 20 mg Capsule PO (09:09)
[2021-05-22] MEDS: cholecalciferol (vitamin D3) 1,000 unit Tablet 1000 UNIT PO (09:09)
[2021-05-22] MEDS: multivitamin therapeutic Tablet 1 TAB PO (09:09)
[2021-05-22] MEDS: ascorbic acid 500 mg Tablet PO (09:09)
[2021-05-22] MEDS: zinc gluconate 50 mg Tablet PO (09:09)
[2021-05-22 09:30] VITALS: PULSE 68; RESP 18; O2SAT 94
[2021-05-22 11:23] VITALS: BP 100/69; PULSE 62; RESP 18; TEMP 36.7; O2SAT 94
[2021-05-22 12:02] VITALS: O2SAT 87; O2SAT 93
--- NOTE | 2021-05-22 12:17 | PM.DCS ---
Discharge Providers Date of Admission: 05/15/21 21:28 Date of Discharge: May 22, 2021 Attending Provider at Admission: Gamaliel Wick MD Attending Provider at Discharge: Stuart Samuels MD Primary Care Provider: Abdi Guevara MD Diagnoses at Discharge Discharge Diagnosis (1) Acute respiratory failure with hypoxia: Status: Resolved (2) Acute respiratory distress syndrome: Status: Resolved (3) Pneumonia due to COVID-19 virus: Status: Resolved Reason for Visit Reason for Visit: COVID SYMPTOMS/ RESPIRATORY DISTRESS Hospital Course Hospital Course 50 year old female with a past medical history of hypothyroidism, hypertension recently, recently had bladder surgery for stress incontinence who presents to [facility] for shortness of breath, cough, fatigue, malaise, fever since May 03. Patient tells me that since about May 03 she started to feel fatigue, malaise, fever, cough she is notified by the health department that she tested positive for Covid on Friday. She was admitted for the management of acute hypoxic respiratory failure secondary to Covid pneumonia, hospital course was complicated by development of ARDS secondary to Covid pneumonia, she was kept on Covid protocol (steroids, completed 5-day course of remdesivir, received 1 dose of Actemra, baricitinib was stopped after 3 doses , Vitamin C, zinc, vitamin D, empirically on antibiotics, supplemental oxygen as needed, during the initial stages of hospital stay she required very high supplemental oxygen through heated high flow oxygen nasal cannula, as well as as needed BiPAP, inflammatory markers were trended, urine Legionella antigen was negative bacterial antigen panel was negative, blood culture was negative, MRSA culture was negative, urine culture grew E. coli sensitive to ceftriaxone complete antibiotic course for UTI, pertinent imaging studies included CTA chest: No PE was found, Patchy bilateral mixed interstitial and airspace infiltrates, serial x-ray chest monitoring was done, ABG was done, She was kept on other conservative respiratory support measures (DuoNebs, incentive spirometer/flutter valve). Patient responded well to above medical management she was discharged on dexamethasone 4 mg p.o. oral daily for additional 7-day, as well as albuterol and Pulmicort inhaler, PO ascorbic acid , zinc, Tessalon Perles as needed. She will follow with pulmonary medicine as an outpatient, as well as a primary care physician. Patient qualified for 2 LS supplemental home oxygen on exertion. Physical Exam Const: COMMON NORMALS: patient oriented x3 HENMT: COMMON NORMALS: normocephalic and atraumatic HEAD & SCALP: normocephalic and atraumatic Resp: COMMON NORMALS: normal respiratory effort, No retractions, No use of accessory muscles and clear to auscultation bilaterally AUSCULTATION: clear to auscultation bilaterally Cardio: COMMON NORMALS: regular rate, regular rhythm, S1 normal heart sound present, S2 normal heart sound present, No gallops present (Cardio), No murmurs present (Cardio), No rub (Cardio) and Peripheral pulses 2+ throughout RATE: regular rate RHYTHM: regular rhythm HEART SOUNDS: S1 normal heart sound present and S2 normal heart sound present PERIPHERAL PULSES: Peripheral pulses 2+ throughout GI: COMMON NORMALS: Normal to inspection, nondistended, normoactive bowel sounds present, Soft to palpation, non-tender, No hepatosplenomegaly present and no masses AUSCULTATION: Yes normoactive bowel sounds PALPATION: Yes Soft to palpation and Yes No hepatosplenomegaly present RECTAL EXAM: deferred Extremity: COMMON NORMALS: no clubbing, cyanosis or edema and no pedal edema Neuro: COMMON NORMALS: patient oriented x3 Urinary Catheter Management^: Pulliam: Cath Placed During This Visit: yes, but has since been removed by the nurse Reason for Continuing Indwelling Catheter: Acute Urinary Retention or Obstruction Urinary Catheter Date of Insertion: 05/16/21 Urinary Catheter Time of Insertion: 10:03 Date Urinary Catheter Removed: 05/20/21 Time Urinary Catheter Discontinued: 15:45 Discharge Data Data Completed and Pending: Completed Studies During Hospitalization Category Date Time Status CT angio chest PE protcl [id number] Stat Cat Scan 05/15/21 14:56 Completed XR chest 1V georgina ble [id number] Routine Exams 05/17/21 07:00 Completed XR chest 1V georgina ble [id number] Routine Exams 05/19/21 07:00 Completed XR chest 1V georgina ble [id number] Stat Exams 05/15/21 13:35 Completed CV. echo complete * [id number] Routine Ultrasound 05/16/21 16:34 Completed Pending at discharge Category Date Time Status Sputum Culture an d Gram Stain Stat Lab 05/15/21 13:35 Uncollected Vitals: Last Vital Signs Temp 98.1 F 05/22/21 11:23 Pulse 62 05/22/21 11:23 Resp 18 05/22/21 11:23 BP 100/69 05/22/21 11:23 Pulse Ox 87 L 05/22/21 12:02 Discharge Plan Discharge Patient Disposition: Home Condition: Stable Prescriptions: New dexamethasone 4 mg tablet 4 mg PO DAILY Qty: 7 RF: 0 Vitamin C 500 mg Tablet 500 mg PO BID 7 Days Qty: 14 RF: 0 zinc gluconate 50 mg Tablet 50 mg PO DAILY Qty: 7 RF: 0 Ventolin HFA 90 mcg/actuation HFA aerosol inhaler 1 inh inhalation Q6H PRN (Reason: shortness of breath or wheezing) Qty: 6.7 RF: 0 Pulmicort Flexhaler 90 mcg/actuation aerosol powdr breath activated 1 inh inhalation BID Qty: 1 RF: 0 benzonatate 100 mg capsule 100 mg PO BID PRN (Reason: cough) Qty: 20 RF: 0 Continued multivitamin Tablet 1 tab PO DAILY RF: 0 oxybutynin chloride 15 mg tablet extended release 24 hr 15 mg PO DAILY 30 Days Qty: 30 RF: 0 omeprazole 40 mg capsule,delayed release(DR/EC) 40 mg PO BID RF: 0 fluoxetine 20 mg capsule 20 mg PO DAILY Qty: 30 RF: 11 levothyroxine 150 mcg capsule 150 mcg PO DAILY Qty: 90 RF: 3 acetaminophen 325 mg capsule 325 mg PO Q4H PRN (Reason: fever or postoperative pain) Qty: 60 RF: 0 ibuprofen 800 mg tablet 800 mg PO TID PRN (Reason: pain) Qty: 60 RF: 0 Held triamterene-hydrochlorothiazid 37.5-25 mg capsule 1 cap PO DAILY RF: 0 Hold Instructions: Resume on 06/05/21. Discontinued amoxicillin-pot clavulanate 875-125 mg tablet 1 tab PO BID RF: 0 Discharge Orders: Discharge Order (Routine); Ordered 05/22/21 Ordered By: Stuart Samuels Other Ambulatory Orders: DME: Oxygen (Order) Location: None Selected Ordered By: Stuart Samuels Referrals: Julio River MD [Physician] - 07/04/21 8:15 am Abdi Guevara MD [Primary Care Provider] - 06/05/21 12:30 pm Discharge Diet: Regular Discharge Activity: Increase activity as tolerated Patient Instructions: Albuterol (By breathing), Zinc Sulfate (By mouth), Budesonide (By breathing), Dexamethasone (By mouth), Using Oxygen at Home (GEN), Hypoxia (GEN), Opioid Safety Activity Restrictions/Additional Instructions: Patient should be fine to resume work from 05/28/2021 Discharge Attestations Time Spent in Discharge Care*: less than 30 min Specific Discharge Activities: educating patient, educating and/or supporting family/caregiver, discussing with pcp/other providers, discussing with case resolution specialist/social workers/dc planners, documenting/other paperwork and evaluating patient/reviewing data Status at Discharge: Cognitive status at discharge: cognitively intact, Behavioral status at discharge: cooperative, Functional status at discharge: independent ambulation Overall status at discharge: patient is progressing back to baseline Quality Metrics Clinical Quality Measures During this hospital stay, did patient experience: None Coding Level of Care Code Acute Chg FW DC note Diagnoses Acute respiratory failure with hypoxia J96.01 Acute respiratory distress syndrome J80 Pneumonia due to COVID-19 virus U07.1; J12.82
== END 2021-05-22 14:28 | disposition home or self-care (01) | DRG 177 ==
LOC: ER 13:18 → ICU 20:39 → MEDSURG 05-19 18:27
PROVIDERS: Admitting Provider Family Medicine; Emergency Provider Family Medicine; PCP Family Medicine; Visit Provider Internal Medicine
DX: U07.1 COVID-19 (principal); J12.82 Pneumonia due to coronavirus disease 2019; J80 Acute respiratory distress syndrome; Z68.42 Body mass index [BMI] 45.0-49.9, adult; N39.0 Urinary tract infection, site not specified; I10 Essential (primary) hypertension; E66.01 Morbid (severe) obesity due to excess calories; K21.9 Gastro-esophageal reflux disease without esophagitis; E03.9 Hypothyroidism, unspecified; F39 Unspecified mood [affective] disorder; K76.0 Fatty (change of) liver, not elsewhere classified; B96.20 Unspecified Escherichia coli [E. coli] as the cause of diseases classified elsewhere
CPT/HCPCS: 36415; 36600; 51702; 71045; 71275; 80053; 81001; 82550; 82803; 83036; 83605; 83735; 83880; 84100; 84145; 84443; 84484; 85025; 85378; 85610; 86140; 86403; 87040; 87077; 87086; 87186; 87449; 87641; 87804; 93005; 93306; 94664; 96365; 96367; 96372; 96375; 99285; C9113; J0456; J0696; J1100; J1650; J1940; J2405; J3262; J7050; Q0144; Q9967

== ENCOUNTER → 2021-05-31 08:12 | Outpatient (BNVA) | payer OTHER, SELFPAY | PROVIDERS: PCP Family Medicine; Visit Provider Internal Medicine | DX: E06.3 Autoimmune thyroiditis (principal); E03.9 Hypothyroidism, unspecified; E03.8 Other specified hypothyroidism; Z86.16 Personal history of COVID-19 | CPT/HCPCS: 99214 ==

== ENCOUNTER → 2021-07-22 18:09 | Outpatient (BNVA) | payer OTHER, SELFPAY | PROVIDERS: PCP Family Medicine; Visit Provider Family Medicine | DX: J06.9 Acute upper respiratory infection, unspecified (principal); Z20.822 Contact with and (suspected) exposure to COVID-19 | CPT/HCPCS: 87400; 87635 ==

== ENCOUNTER 2021-08-15 08:48 | Outpatient (CLI) | payer OTHER, SELFPAY ==
--- NOTE | 2021-08-15 08:57 | MM_ITS ---
WS: [id number] LEFT DIGITAL MAMMOGRAPHY WITH CAD CLINICAL INFORMATION: ABNORMAL MAMMOGRAM COMPARISON: January 24, 2021 TECHNIQUE: 4 views of the left breast were obtained. FINDINGS: 6 month follow-up Scattered fibroglandular densities of the left breast. Previously described 10 mm ovoid nodule in the upper outer has decreased in size today measuring 5 mm. This most likely represents an incidental in tramammary lymph node. Ultrasound is pending. No other significant interval changes. ULTRASOUND BREAST LEFT TECHNIQUE: Ultrasound left breast focused area of concern. CLINICAL INFORMATION: ABNORMAL MAMMOGRAM COMPARISON: January 16, 2021 FINDINGS: Ultrasound LEFT breast 12 to 3:00 position. Normal underlying parenchymal tissue. No cystic or solid lesions. No underlying suspicious parenchymal abnormalities. MM/[place] [id number] IMPRESSION: BI-RADS: 2-Benign FOLLOW UP: 1 Year Follow-up Recommend return to annual screening mammography.
== END 2021-08-15 08:49 | disposition home or self-care (01) ==
LOC: RADSHAW 08:53
PROVIDERS: PCP Family Medicine; Visit Provider Family Medicine
DX: R92.8 Other abnormal and inconclusive findings on diagnostic imaging of breast (principal)
CPT/HCPCS: 76642; 77065

== ENCOUNTER → 2021-11-28 08:30 | Outpatient (BNVA) | payer OTHER, SELFPAY | PROVIDERS: PCP Family Medicine; Visit Provider Obstetrics & Gynecology | DX: Z12.4 Encounter for screening for malignant neoplasm of cervix (principal); R21 Rash and other nonspecific skin eruption | CPT/HCPCS: 87624 ==

== ENCOUNTER → 2021-12-11 15:13 | Outpatient (BNVA) | payer OTHER, SELFPAY | PROVIDERS: PCP Family Medicine; Visit Provider Obstetrics & Gynecology | DX: L90.0 Lichen sclerosus et atrophicus (principal) | CPT/HCPCS: 88305 ==

== ENCOUNTER 2022-01-28 07:16 | Outpatient (CLI) | payer OTHER, SELFPAY ==
--- NOTE | 2022-01-28 07:19 | MM_ITS ---
WS: [id number] BILATERAL SCREENING DIGITAL BREAST TOMOSYNTHESIS MAMMOGRAM WITH CAD HISTORY: Screening exam. COMPARISON: 08/15/2021, 01/24/2021, 12/08/2019 Bilateral CC and MLO views with tomosynthesis and synthetic mammography submitted. Computer aided det ection analyzed. Breast composition: There are scattered areas of fibroglandular density. No suspicious masses, microc alcifications or architectural distortion. Ovoid nodule measuring 7 mm upper outer quadrant of the LE FT breast is stable. No suspicious mass or calcifications. MM/[place] [id number] IMPRESSION: BI-RADS: 2-Benign FOLLOW UP: 1 Year Follow-up
== END 2022-01-28 07:17 | disposition home or self-care (01) ==
LOC: RAD 07:17
PROVIDERS: PCP Family Medicine; Visit Provider Obstetrics & Gynecology
DX: Z12.31 Encounter for screening mammogram for malignant neoplasm of breast (principal)
CPT/HCPCS: 77063; 77067

== ENCOUNTER 2022-02-01 10:25 | Outpatient (CLI) | payer OTHER, SELFPAY ==
--- NOTE | 2022-02-01 10:35 | XR_ITS ---
WS: [id number] Right knee, 4 views, 02/01/2022 Clinical Data: Knee pain Comparison: AP both knees, left knee, 02/07/2016. Findings: No fractures or dislocations are seen. There is medial joint compartment narrowing. There are spurs o f the medial tibial plateau and medial and lateral femoral condyles. The posterior patella shows spur ring.The soft tissues are normal. XR/XR knee RT 4V [id number] Impression: Mild osteoarthritis of the right knee. Kellgren-Eh Classification: grade 2 (minimal): definite osteophytes and p ossible joint space narrowing
--- NOTE | 2022-02-01 10:35 | XR_ITS ---
WS: [id number] Left knee, 4 views, 02/01/2022 Clinical Data: Knee pain Comparison: AP both knees, left knee, 02/07/2016. Findings: No fractures or dislocations are seen. There is medial joint compartment narrowing with spurs of the medial and lateral tibial plateau and medial lateral femoral condyles. The posterior patella shows mi ld irregularity.The soft tissues are normal. XR/XR knee LT 4V [id number] Impression: Mild osteoarthritis of the left knee. Kellgren-Eh Classification: grade 2 (minimal): definite osteophytes and p ossible joint space narrowing
== END 2022-02-01 10:26 | disposition home or self-care (01) ==
PROVIDERS: PCP Family Medicine; Visit Provider Family Medicine
DX: M17.0 Bilateral primary osteoarthritis of knee (principal)
CPT/HCPCS: 73564

== ENCOUNTER 2022-03-21 11:02 | Emergency (ER) | payer OTHER, SELFPAY ==
[2022-03-21 11:02] VITALS: BP 135/82; PULSE 64; RESP 16; TEMP 36.9; O2SAT 96; BMI 50.2
--- NOTE | 2022-03-21 11:32 | W.ED.NECK ---
HPI - Neck Pain/Injury General: Chief Complaint: Neck Pain/Injury Stated Complaint: neck/head pain Time Seen by Provider: 03/21/22 11:24 Source: patient Mode of arrival: ambulatory Limitations: no limitations History of Present Illness: 51-year-old female states she has been having right-sided neck pain throughout the day. States been a sharp pain on the right side of her neck she states it hurts to touch and when she moves her neck. She denies any chest pain denies any fever denies any central neck pain. She denies any recent injuries. She rates her pain a 6 out of 10 currently. Associated symptoms: Denies headache(s) or nausea Review of Systems Const: Denies: fever(s), chills, body aches or change in appetite Eyes: Denies: blurry vision or eye discomfort ENMT: Denies: throat pain or dental pain Card: Denies: chest pain Resp: Denies: dyspnea GI: Denies: abdominal pain, nausea, vomiting or diarrhea : Denies: dysuria Musc: Reports: neck pain Skin/Breast: Denies: rash Neuro: Denies: headache(s) Psych: Denies: depression Gerardo/Lymph: Denies: easy bruising All/Imm: Denies: urticaria PFSH ED PFSH: Medical History GERD (gastroesophageal reflux disease) Controlled with medication. Hypertension Diagnosed with chronic hypertension and pedal edema in 2018 and medication controls the symptoms managed by her primary care provider. She does not have a production assistant. Hypothyroidism Diagnosed in 2006 and controlled with medication managed by her primary care provider Mood changes Controlled with fluoxetine managed by her PMD. She does not see a therapist No pertinent past medical history Denies diabetes, asthma, seizures, DVT/PE. PMD: Dr. Guevara OAB (overactive bladder) Controlled with medication managed by her primary care provider . Surgical History History of suburethral sling procedure 04/18/2021- single incision midurethral sling performed by Dr. Tamez at [facility] S/P cholecystectomy laparoscopic procedure performed in 1999 S/P laparoscopy 04/11/2004--Diagnostic laparoscopy, pelvic pain, Dr. Grissom. She states that no abnormality was noted on laparoscopy. S/P peroneal tendon repair Performed by Dr. Darby at [facility] [place] in May 2019 S/P reduction mammoplasty Performed in 2005 S/P tubal ligation Sterilization by Essure procedure performed in July [address] Lee at [facility] [place]. Status post arthroscopic knee surgery [address] Tracey Family History Mother Diabetes Brother Diabetes Father Heart disease Family/Other Ovarian cancer Maternal cousin, age at diagnosis unknown Breast cancer Paternal aunt, age at diagnosis unknown Sister Thyroid condition Denies family history of Colon cancer Clotting disorder Hyperlipidemia Anesthesia complication Bleeding disorder Hypertension Uterine cancer Stroke Social History Smoking and tobacco status: never smoked Physical Exam Const: COMMON NORMALS: no acute distress, patient oriented x3 and healthy appearing HENMT: COMMON NORMALS: normocephalic and atraumatic HEAD & SCALP: normocephalic and atraumatic Eye: COMMON NORMALS: Equal, round and reactive pupils present and EOMs intact bilaterally PUPIL: Yes Equal, round and reactive pupils present Neck/C-Spine: COMMON NORMALS: full ROM OTHER: Tenderness along right side of the neck mainly in the trapezius muscle she has pain when she turns to the right Chest: COMMONS NORMALS: normal inspection of the chest and normal palpation of entire chest wall Resp: COMMON NORMALS: normal respiratory effort, No retractions, No use of accessory muscles and clear to auscultation bilaterally AUSCULTATION: clear to auscultation bilaterally Cardio: COMMON NORMALS: regular rate, regular rhythm and No murmurs present (Cardio) RATE: regular rate RHYTHM: regular rhythm GI: COMMON NORMALS: Normal to inspection, nondistended, normoactive bowel sounds present, Soft to palpation, non-tender and no masses PALPATION: Yes Soft to palpation Extremity: COMMON NORMALS: normal to inspection and full ROM Neuro: COMMON NORMALS: patient oriented x3, moves all extremities and no focal motor deficits Psych: COMMON NORMALS: mental status grossly normal, Normal thought process present and cooperative THOUGHT PROCESS: Normal thought process present Skin: COMMON NORMALS: no rashes or lesions noted and no wounds GENERAL SKIN EXAM: no rashes or lesions noted Course Vital Signs: Vital signs: Vital Signs Temperature 98.4 F 09/22/22 11:02 Pulse Rate 64 03/21/22 11:02 Respiratory Rate 16 03/21/22 11:02 Blood Pressure 135/82 03/21/22 11:02 Pulse Oximetry 96 03/21/22 11:02 Oxygen Delivery Me thod 03/21/22 11:02 MDM - Neck Pain/Injury Medical Decision Making Patient presents here with neck pain right-sided she is very tender over trapezius muscle has pain when she moves her head to the right consistent with muscle spasm muscle strain she has no chest pain no cardiac symptoms we will place her on anti-inflammatory and a muscle relaxant she is to she is to follow-up with PCP and return if worsening she has no midline pain she understands agrees to plan. Discharge Plan Discharge Patient Disposition: Home Clinical Impression: Acute neck pain, Muscle spasms of neck Condition: Stable Prescriptions: New methocarbamol 750 mg tablet 750 mg PO Q6H PRN (Reason: spasms) Qty: 20 0RF Naprosyn 500 mg tablet 500 mg PO BID PRN (Reason: pain) Qty: 20 0RF No Action multivitamin Tablet 1 tab PO DAILY omeprazole 40 mg capsule,delayed release(DR/EC) 40 mg PO BID triamterene-hydrochlorothiazid 37.5-25 mg capsule 1 cap PO DAILY Hold Instructions: Resume on 06/05/21. testosterone 100 mg pellet SUBCUT Rx Instructions: 175 mg every 3-6 months estradiol 12.5 mg pellet SUBCUT .every 3 months progesterone micronized [Prometrium] 200 mg capsule 200 mg PO DAILY liothyronine 5 mcg tablet 5 mcg PO DAILY fluoxetine 20 mg capsule 20 mg PO DAILY Qty: 90 3RF ascorbate calcium (vitamin C) 500 mg tablet 500 mg PO BID 5 Days Qty: 10 0RF cholecalciferol (vitamin D3) 25 mcg (1,000 unit) capsule 25 mcg PO DAILY 5 Days Qty: 5 0RF clobetasol 0.05 % ointment 1 applic topical .COMPLEX Qty: 45 1RF Hold Instructions: Doctor's Order Rx Instructions: 1 applic topical 4 times weekly x 2mos then 1-2 times weekly; meloxicam 15 mg tablet 15 mg PO DAILY Qty: 30 3RF Rx Instructions: Do not take Ibuprofen/Aleve on same day as taking Meloxicam levothyroxine 150 mcg capsule 150 mcg PO DAILY Qty: 90 3RF Rx Instructions: Take one tablet daily. acetaminophen 325 mg capsule 325 mg PO Q4H PRN (Reason: fever or postoperative pain) Qty: 60 0RF ibuprofen 800 mg tablet 800 mg PO TID PRN (Reason: pain) Qty: 60 0RF Discharge Orders: Discharge ED (Routine); Ordered 03/21/22 Ordered By: Peyton Shah Referrals: Abdi Guevara MD [Primary Care Provider] - 1-3 days Discharge Diet: Advance as tolerated Discharge Activity: Resume usual activity Patient Instructions: Muscle Spasm (ED), Neck Pain (ED) Coding Level of Care Code ED Air Quality Consultant for Yomaira Pedroza
[2022-03-21] MEDS: naproxen 500 mg Tablet PO (11:41)
[2022-03-21] MEDS: methocarbamol 750 mg Tablet PO (11:41)
== END 2022-03-21 11:49 | disposition home or self-care (01) ==
PROVIDERS: Emergency Provider Emergency Medicine; PCP Family Medicine
DX: M54.2 Cervicalgia (principal); M62.838 Other muscle spasm; I10 Essential (primary) hypertension
CPT/HCPCS: 99283

== ENCOUNTER 2022-07-12 06:44 | Outpatient (CLI) | payer OTHER, SELFPAY ==
[2022-07-12 07:42] LABS: Basophils # 0.1 10^3/uL (0.0-0.1); Basophils % 0.7 %; Eosinophils # 0.2 10^3/uL (0.0-0.8); Eosinophils % 2.7 %; Hematocrit 45.3 % (37.0-47.0); Hemoglobin 14.6 g/dL (11.5-15.3); Lymphocytes # 2.3 10^3/uL (0.8-4.8); Lymphocytes % 33.3 %; Mean Corpuscular HGB Conc 32.2 g/dL (30.0-36.0); Mean Corpuscular Hemoglobin 28.1 pg (28.0-34.0); Mean Corpuscular Volume 87.3 fl (81-99); Mean Platelet Volume 10.6 fL (7.4-10.4); Monocytes # 0.5 10^3/uL (0.2-0.9); Monocytes % 6.6 %; Neutrophils # 3.84 10^3/uL (1.8-7.7); Neutrophils % 56.6 %; Nucleated Red Blood Cells % 0 %; Platelet Count 268 10^3/cmm (130-400); Red Blood Count 5.19 10^6/uL (4.1-5.3); Red Cell Distribution Width 14.5 % (12.1-15.1); White Blood Count 6.8 10^3/uL (4.0-10.0)
[2022-07-12 07:49] LABS: Estmated Average Glucose 114; Hemoglobin A1C 5.6 % (4.0-6.0)
[2022-07-12 08:00] LABS: Alanine Aminotransferase 14 U/L (0-33); Alkaline Phosphatase 67 U/L (35-105); Anion Gap 9.9 (5-19); Aspartate Amino Transferase 14 U/L (0-32); Blood Urea Nitrogen 23 mg/dL (6-20); Calcium 9.6 mg/dL (8.5-10.5); Carbon Dioxide 27 mmol/L (22-29); Chloride 104 mmol/L (98-107); Chol HDL Ratio 3.67 mg/dL (0.0-4.40); Cholesterol 180 mg/dL (0-200); Globulin 2.8 g/dL (1.3-4.6); Glomerular Filtration Rate 65.5 mL/min (90-130); Glucose 100 mg/dL (65-115); HDL Cholesterol 49 mg/dL (60-100); LDL Cholesterol Calculated 107 mg/dL (50-129); LDL HDL Ratio 2.18 RATIO (0.00-3.22); Osmolality Calculated 288 mOsm/kg (285-295); Potassium 3.9 mmol/L (3.5-5.1); Sodium 137 mmol/L (136-145); Thyroid Stimulating Hormone 5.36 uIU/mL (0.27-4.20); Total Bilirubin 0.7 mg/dL (0.15-1.2); Total Protein 6.8 g/dL (6.6-8.7); Triglycerides 118 mg/dL (0-150)
[2022-07-12 08:28] LABS: Free T4 Free Thyroxine 1.16 ng/dL (0.82-1.77)
== END 2022-07-12 06:45 | disposition home or self-care (01) ==
PROVIDERS: PCP Family Medicine; Visit Provider Nurse Practitioner Family
DX: Z13.220 Encounter for screening for lipoid disorders (principal); Z13.1 Encounter for screening for diabetes mellitus; I10 Essential (primary) hypertension; E03.9 Hypothyroidism, unspecified
CPT/HCPCS: 80053; 80061; 83036; 84439; 84443; 85025

== ENCOUNTER 2022-09-05 06:33 | Outpatient (CLI) | payer OTHER, SELFPAY ==
[2022-09-05 07:28] LABS: Basophils % 0.6 %; Eosinophils # 0.2 10^3/uL (0.0-0.8); Eosinophils % 2.4 %; Hematocrit 45.1 % (37.0-47.0); Hemoglobin 14.5 g/dL (11.5-15.3); Lymphocytes % 29.5 %; Mean Corpuscular HGB Conc 32.2 g/dL (30.0-36.0); Mean Corpuscular Hemoglobin 27.8 pg (28.0-34.0); Mean Corpuscular Volume 86.6 fl (81-99); Mean Platelet Volume 10.7 fL (7.4-10.4); Monocytes # 0.4 10^3/uL (0.2-0.9); Monocytes % 5.9 %; Neutrophils # 4.09 10^3/uL (1.8-7.7); Neutrophils % 61.4 %; Nucleated Red Blood Cells % 0 %; Platelet Count 266 10^3/cmm (130-400); Red Blood Count 5.21 10^6/uL (4.1-5.3); Red Cell Distribution Width 13.6 % (12.1-15.1); White Blood Count 6.7 10^3/uL (4.0-10.0)
[2022-09-05 08:04] LABS: 25 Hydroxy Vitamin D 48 ng/mL (30-100); Alanine Aminotransferase 16 U/L (0-33); Alkaline Phosphatase 66 U/L (35-105); Anion Gap 13.9 (5-19); Aspartate Amino Transferase 19 U/L (0-32); Blood Urea Nitrogen 18 mg/dL (6-20); Carbon Dioxide 23 mmol/L (22-29); Chloride 105 mmol/L (98-107); Chol HDL Ratio 3.76 mg/dL (0.0-4.40); Cholesterol 158 mg/dL (0-200); Follicle Stimulating Hormone 9.5 mIU/mL; Globulin 2.5 g/dL (1.3-4.6); Glucose 98 mg/dL (65-115); HDL Cholesterol 42 mg/dL (60-100); LDL Cholesterol Calculated 97 mg/dL (50-129); LDL HDL Ratio 2.31 RATIO (0.00-3.22); Osmolality Calculated 288 mOsm/kg (285-295); Potassium 3.9 mmol/L (3.5-5.1); Sodium 138 mmol/L (136-145); Thyroid Stimulating Hormone 2.77 uIU/mL (0.27-4.20); Total Bilirubin 0.5 mg/dL (0.15-1.2); Total Protein 6.5 g/dL (6.6-8.7); Triglycerides 96 mg/dL (0-150); Vitamin B12 1081 pg/mL (232-1245)
[2022-09-05 11:24] LABS: Free T4 Free Thyroxine 1.35 ng/dL (0.82-1.77); T3 Free 2.8 PG/ML (2.0-4.4); Testosterone Total 175.9 ng/dL (2.9-40.8)
[2022-09-06 15:30] LABS: Thyroid Peroxidase Antobodies 315 IU/mL (<9)
== END 2022-09-05 06:34 | disposition home or self-care (01) ==
PROVIDERS: Nurse Practitioner Obstetrics & Gynecology; PCP Family Medicine
DX: Z01.89 Encounter for other specified special examinations (principal)
CPT/HCPCS: 36415; 80053; 80061; 82306; 82607; 82670; 83001; 84403; 84439; 84443; 84481; 85025; 86376

== ENCOUNTER 2023-01-31 07:48 | Outpatient (CLI) | payer OTHER, SELFPAY ==
--- NOTE | 2023-01-31 07:54 | MM_ITS ---
WS: [id number] Bilateral screening 3D tomosynthesis digital mammogram, 01/31/2023 Clinical Data: SCREENING Comparison: 01/28/2022, 08/15/2021, 01/24/2021, 01/08/2021, 12/08/2019 09/16/2018, 09/11/2017, 09/11/2016, 09/03, 09/02/2014, 09/03/2013, 09/02/2012, 09/09/2011, 08/29/2010, 08/23/2009. Findings: The breast parenchymal pattern shows fibroglandular tissue. No spiculated masses or clustered calcifi cations are seen. There are no secondary signs of carcinoma. There are lymph nodes in both axilla. MM/[place] [id number] Impression: 1. Negative bilateral mammogram unchanged. 2. Recommend annual screening mammograms. BIRADS: 1-Negative FOLLOW UP: 1 Year Follow-up The CAD blast furnace checker was used.
== END 2023-01-31 07:49 | disposition home or self-care (01) ==
LOC: RAD 07:51 → MOBLMAM 07:52
PROVIDERS: PCP Family Medicine; Visit Provider Family Medicine
DX: Z12.31 Encounter for screening mammogram for malignant neoplasm of breast (principal)
CPT/HCPCS: 77063; 77067

== ENCOUNTER 2023-11-28 06:30 | Outpatient (CLI) | payer OTHER, SELFPAY ==
[2023-11-28 06:55] LABS: Basophils # 0.1 10^3/uL (0.0-0.1); Basophils % 0.8 %; Eosinophils # 0.2 10^3/uL (0.0-0.8); Eosinophils % 2.3 %; Lymphocytes # 2.6 10^3/uL (0.8-4.8); Lymphocytes % 33.3 %; Mean Corpuscular HGB Conc 32.2 g/dL (30-55); Mean Platelet Volume 9.9 fL (7.4-10.4); Monocytes # 0.5 10^3/uL (0.2-0.9); Monocytes % 6.1 %; Neutrophils # 4.45 10^3/uL (1.8-7.7); Neutrophils % 57.4 %; Nucleated Red Blood Cells % 0 %; Platelet Count 316 10^3/cmm (157-399); Red Cell Distribution Width 13.4 % (12.1-15.1); White Blood Count 7.75 10^3/uL (3.29-11.43)
[2023-11-28 07:14] LABS: Estmated Average Glucose 103; Hemoglobin A1C 5.2 % (4.0-6.0)
[2023-11-28 07:21] LABS: Alanine Aminotransferase 23 U/L (0-33); Alkaline Phosphatase 59 U/L (35-105); Anion Gap 13.9 (5-19); Aspartate Amino Transferase 18 U/L (0-32); Blood Urea Nitrogen 21 mg/dL (6-20); Calcium 9.4 mg/dL (8.5-10.5); Carbon Dioxide 23 mmol/L (22-29); Chloride 107 mmol/L (98-107); Chol HDL Ratio 3.25 mg/dL (0.0-4.40); Cholesterol 179 mg/dL (0-200); Globulin 2.8 g/dL (1.3-4.6); Glomerular Filtration Rate 57.6 mL/min (90-130); Glucose 108 mg/dL (65-115); HDL Cholesterol 55 mg/dL (60-100); LDL Cholesterol Calculated 97 mg/dL (50-129); LDL HDL Ratio 1.76 RATIO (0.00-3.22); Osmolality Calculated 292 mOsm/kg (285-295); Potassium 4.9 mmol/L (3.5-5.1); Sodium 139 mmol/L (136-145); Thyroid Stimulating Hormone 0.29 uIU/mL (0.27-4.20); Total Bilirubin 0.4 mg/dL (0.15-1.2); Total Protein 6.8 g/dL (6.6-8.7); Triglycerides 134 mg/dL (0-150)
[2023-11-28 08:04] LABS: 25 Hydroxy Vitamin D 46 ng/mL (30-100); Vitamin B12 940 pg/mL (232-1245)
== END 2023-11-28 06:31 | disposition home or self-care (01) ==
PROVIDERS: PCP Family Medicine; Visit Provider Family Medicine
DX: Z51.81 Encounter for therapeutic drug level monitoring (principal); Z00.00 Encounter for general adult medical examination without abnormal findings; E03.9 Hypothyroidism, unspecified; R73.09 Other abnormal glucose; Z13.220 Encounter for screening for lipoid disorders; E55.9 Vitamin D deficiency, unspecified; E53.8 Deficiency of other specified B group vitamins
CPT/HCPCS: 36415; 80053; 80061; 82306; 82607; 83036; 84439; 84443; 85025

== ENCOUNTER 2024-02-10 10:55 | Outpatient (CLI) | payer OTHER, SELFPAY ==
--- NOTE | 2024-02-10 11:01 | MM_ITS ---
WS: [id number] SCREENING DIGITAL BREAST TOMOSYNTHESIS MAMMOGRAM WITH CAD HISTORY: Screening mammogram COMPARISON: 01/31/2023, 01/28/2022 and 01/08/2021 Bilateral CC and MLO with tomosynthesis and synthetic mammography submitted. Computer aided detection analyzed. Breast composition: There are scattered areas of fibroglandular density. Asymmetry measuring 5.9 mm i n the posterior RIGHT breast against the chest wall. Not seen on the most recent studies. This may guillermo ve been present in 2020 but appears slightly different on today's examination. Recommend additional i maging. This is not identified on the CC projection. LEFT breast is negative. MM/[place] [id number] IMPRESSION: BI-RADS: 0-Incomplete: Need additional imaging evaluation FOLLOW UP: Need Additional Imaging RIGHT breast: Spot compression views (exaggerated lateral CC and MLO). True ML. Ultrasound to follow if abnormality persists.
== END 2024-02-10 10:56 | disposition home or self-care (01) ==
LOC: RAD 10:56
PROVIDERS: PCP Family Medicine; Visit Provider Family Medicine
DX: Z12.31 Encounter for screening mammogram for malignant neoplasm of breast (principal); R92.323 Mammographic fibroglandular density, bilateral breasts; R92.8 Other abnormal and inconclusive findings on diagnostic imaging of breast
CPT/HCPCS: 77063; 77067

== ENCOUNTER 2024-03-29 10:47 | Outpatient (CLI) | payer OTHER, SELFPAY ==
--- NOTE | 2024-03-29 11:00 | MM_ITS ---
WS: [id number] ADDITIONAL VIEWS RIGHT MAMMOGRAM WITH DIGITAL BREAST TOMOSYNTHESIS. RIGHT BREAST ULTRASOUND HISTORY: Abnormal mammogram COMPARISON: 01/31/2023, 01/28/2022 RIGHT MAMMOGRAM: Spot compression views and true ML with digital breast tomosynthesis and SM. Breast composition: There are scattered areas of fibroglandular density. Asymmetry persists in the posterior RIGHT breast against the chest wall but becomes less apparent. Fo shabana developing asymmetry measures 6 x 5 mm. RIGHT BREAST ULTRASOUND 2-D and color Doppler imaging submitted. The asymmetry seen on mammography is not identified by ultrasound. There is no shadowing or mass or c ystic disease. MM/MM diag RT tomosynthesis [id number] IMPRESSION: BI-RADS: 3 - Probably Benign. FOLLOW UP: 6 Month Follow-up Recommend 6-month RIGHT mammogram follow-up with possible ultrasound. This asym metry is new against the posterior RIGHT chest wall but is only seen on the MLO image. Not identified by ultrasound.
== END 2024-03-29 10:48 | disposition home or self-care (01) ==
LOC: RAD 10:49
PROVIDERS: PCP Family Medicine; Visit Provider Family Medicine
DX: R92.8 Other abnormal and inconclusive findings on diagnostic imaging of breast (principal); R92.323 Mammographic fibroglandular density, bilateral breasts
CPT/HCPCS: 76642; 77061; G0279

== ENCOUNTER 2024-06-08 08:35 | Outpatient (CLI) | payer SELFPAY ==
[2024-06-08 09:09] LABS: HF Add Manual Diff No
[2024-06-08 09:30] LABS: Basophils # 0.1 10^3/uL (0.0-0.1); Eosinophils # 0.1 10^3/uL (0.0-0.8); Eosinophils % 2.1 %; Hematocrit 42.2 % (36-47); Lymphocytes # 2.2 10^3/uL (0.8-4.8); Lymphocytes % 35.5 %; Mean Corpuscular HGB Conc 32.7 g/dL (30-55); Mean Corpuscular Hemoglobin 29.9 pg (27-33); Mean Corpuscular Volume 91.5 fl (85-98); Mean Platelet Volume 9.9 fL (7.4-10.4); Monocytes # 0.4 10^3/uL (0.2-0.9); Monocytes % 6.4 %; Neutrophils # 3.42 10^3/uL (1.8-7.7); Neutrophils % 54.8 %; Nucleated Red Blood Cells % 0 %; Platelet Count 239 10^3/cmm (157-399); Red Blood Count 4.61 10^6/uL (3.85-5.65); White Blood Count 6.23 10^3/uL (3.29-11.43)
[2024-06-08 09:59] LABS: Alanine Aminotransferase 15 U/L (0-33); Alkaline Phosphatase 62 U/L (35-105); Anion Gap 10.9 (5-19); Aspartate Amino Transferase 14 U/L (0-32); Blood Urea Nitrogen 18 mg/dL (6-20); Calcium 9.2 mg/dL (8.5-10.5); Carbon Dioxide 24 mmol/L (22-29); Chloride 110 mmol/L (98-107); Chol HDL Ratio 2.76 mg/dL (0.0-4.40); Cholesterol 152 mg/dL (0-200); Globulin 2.4 g/dL (1.3-4.6); Glomerular Filtration Rate 74.5 mL/min (90-130); Glucose 89 mg/dL (65-115); HDL Cholesterol 55 mg/dL (60-100); LDL Cholesterol Calculated 81 mg/dL (50-129); LDL HDL Ratio 1.47 RATIO (0.00-3.22); Osmolality Calculated 293 mOsm/kg (285-295); Potassium 3.9 mmol/L (3.5-5.1); Sodium 141 mmol/L (136-145); Thyroid Stimulating Hormone 0.05 uIU/mL (0.27-4.20); Total Bilirubin 0.4 mg/dL (0.15-1.2); Total Protein 6.4 g/dL (6.6-8.7); Triglycerides 78 mg/dL (0-150)
[2024-06-08 10:05] LABS: Estmated Average Glucose 88; Hemoglobin A1C 4.7 % (4.0-6.0)
== END 2024-06-08 08:36 | disposition home or self-care (01) ==
PROVIDERS: PCP Family Medicine; Visit Provider Dermatology
DX: Z13.9 Encounter for screening, unspecified (principal)
CPT/HCPCS: 36415

== ENCOUNTER 2024-09-20 10:42 | Outpatient (CLI) | payer OTHER, SELFPAY ==
--- NOTE | 2024-09-20 10:45 | MM_ITS ---
WS: [id number] DIAGNOSTIC RIGHT DIGITAL TOMOSYNTHESIS MAMMOGRAPHY WITH CAD. HISTORY: Follow-up asymmetry posterior RIGHT breast. COMPARISON: 03/29/2024, 02/10/2024, 01/31/2023, 01/08/2021 Technique: CC, MLO and ML views. Spot compression MLO. Breast composition: There are scattered areas of fibroglandular density. The asymmetry persists in the posterior RIGHT breast against the chest wall. There has been no increase in size. No development of a calcification or distortion. Not seen on the CC projection due to its posterior location but is probably just medial to the nipple line. No additional imaging at this time. MM/MM diag RT tomosynthesis [id number] IMPRESSION: BI-RADS: 3 - Probably Benign. FOLLOW UP: 6 Month Follow-up Patient to return in 6 months for annual mammogram. The asymmetry in the RIGHT breast can be further evaluated at that time for raghav g-term stability.
== END 2024-09-20 10:43 | disposition home or self-care (01) ==
LOC: RAD 10:42
PROVIDERS: PCP Family Medicine; Visit Provider Family Medicine
DX: R92.8 Other abnormal and inconclusive findings on diagnostic imaging of breast (principal); R92.323 Mammographic fibroglandular density, bilateral breasts; N64.89 Other specified disorders of breast
CPT/HCPCS: 77061; G0279

== ENCOUNTER 2024-10-05 06:56 | Outpatient (CLI) | payer OTHER, SELFPAY ==
[2024-10-05 07:17] LABS: Basophils # 0.1 10^3/uL (0.0-0.1); Eosinophils # 0.1 10^3/uL (0.0-0.8); Eosinophils % 2.4 %; Hematocrit 43.5 % (36-47); Lymphocytes # 2.4 10^3/uL (0.8-4.8); Lymphocytes % 40.2 %; Mean Corpuscular HGB Conc 31.7 g/dL (30-55); Mean Corpuscular Hemoglobin 29.1 pg (27-33); Mean Corpuscular Volume 91.8 fl (85-98); Mean Platelet Volume 9.6 fL (7.4-10.4); Monocytes # 0.4 10^3/uL (0.2-0.9); Monocytes % 6.6 %; Neutrophils # 2.91 10^3/uL (1.8-7.7); Neutrophils % 49.6 %; Nucleated Red Blood Cells % 0 %; Platelet Count 250 10^3/cmm (157-399); Red Blood Count 4.74 10^6/uL (3.85-5.65); Red Cell Distribution Width 13.4 % (12.1-15.1); White Blood Count 5.87 10^3/uL (3.29-11.43)
[2024-10-05 07:49] LABS: Estmated Average Glucose 91; Hemoglobin A1C 4.8 % (4.0-6.0)
[2024-10-05 07:57] LABS: Alanine Aminotransferase 14 U/L (0-33); Albumin Level 4.2 g/dL (3.5-5.2); Alkaline Phosphatase 56 U/L (35-105); Anion Gap 12.3 (5-19); Aspartate Amino Transferase 14 U/L (0-32); Blood Urea Nitrogen 22 mg/dL (6-20); Calcium 9.2 mg/dL (8.5-10.5); Carbon Dioxide 23 mmol/L (22-29); Chloride 110 mmol/L (98-107); Free T4 Free Thyroxine 1.57 ng/dL (0.82-1.77); Globulin 2.6 g/dL (1.3-4.6); Glomerular Filtration Rate 64.8 mL/min (90-130); Glucose 89 mg/dL (65-115); Osmolality Calculated 295 mOsm/kg (285-295); Potassium 4.3 mmol/L (3.5-5.1); Sodium 141 mmol/L (136-145); Thyroid Stimulating Hormone 1.62 uIU/mL (0.27-4.20); Total Bilirubin 0.5 mg/dL (0.15-1.2); Total Protein 6.8 g/dL (6.6-8.7)
== END 2024-10-05 06:57 | disposition home or self-care (01) ==
PROVIDERS: PCP Family Medicine; Visit Provider Family Medicine
DX: Z51.81 Encounter for therapeutic drug level monitoring (principal); Z00.00 Encounter for general adult medical examination without abnormal findings; E03.9 Hypothyroidism, unspecified; R73.09 Other abnormal glucose
CPT/HCPCS: 36415; 80053; 83036; 84439; 84443; 85025

== ENCOUNTER → 2024-10-20 13:25 | Outpatient (BNVA) | payer OTHER, SELFPAY | PROVIDERS: PCP Family Medicine; Visit Provider Nurse Practitioner Women's Health | DX: N95.0 Postmenopausal bleeding (principal) | CPT/HCPCS: 87624 ==

== ENCOUNTER → 2024-10-26 07:51 | Outpatient (BNVA) | payer OTHER, SELFPAY | PROVIDERS: PCP Family Medicine; Visit Provider Nurse Practitioner Women's Health | DX: N92.5 Other specified irregular menstruation (principal) | CPT/HCPCS: 76830 ==

== ENCOUNTER 2024-11-19 17:43 | Emergency (ER) | payer OTHER, SELFPAY ==
[2024-11-19 17:48] VITALS: BP 178/118; PULSE 64; RESP 17; TEMP 36.6; O2SAT 100; BMI 41.5
--- NOTE | 2024-11-19 18:30 | ED_ITS ---
HPI - Female Genitourinary 2 General: Chief complaint: Urogenital-Female Stated complaint: pain in kidney area Time Seen by Provider: 11/19/24 18:23 History of Present Illness: Selected Entries 11/19/24 17:48 ED Triage Comment Pt arrives with c/ o possible kidney infection or stone . Pt stated her sy mptoms started on Friday but became worse on Fri. Pt stated she is havi ng urinary urgency . Patient is a 54-year-old female without previous history of renal colic, presents to ED with left flank pain that radiates to abdomen, lower abdomen, is a fullness that started somewhat on Friday evening, however worsened on Friday. She is having urinary urgency. She does have menstrual cycle and has E coils in bilat fallopians. LMP completed yesterday. Mild nausea without emesis. Patient came back early from camping, and symptoms started when camping Friday evening. Denies intake of michaels water. No change in stools. Associated symptoms: Deny abdominal pain, headache(s) or nausea Related Data Home Medications ?Medication ?Instructions ?Recorded ?Confirmed multivitamin 1 tab PO DAILY 01/22/2107/24 liothyronine 5 mcg tablet 5 mcg PO DAILY 11/28/2107/24 progesterone micronized 200 mg 200 mg PO DAILY 2 10/28/24 capsule (Prometrium) aspirin 81 mg tablet,delayed 81 mg PO DAILY 12/18/23 0 10/28/24 release melatonin 5 mg capsule mg PO 12/18/23 10/28/24 estradiol 0.5 mg/0.5 gram (0.1 %) 1 packet transdermal DAILY 10/08/24 10/28/24 transdermal gel packet topiramate 25 mg tablet 50 mg PO BID 10/08/24 semaglutide (weight loss) 2.4 2.4 mg SUBCUT Q7D 10/28/24 mg/0.75 mL subcutaneous pen injector Previous Rx's ?Medication ?Instructions ?Recorded clobetasol 0.05 % topical ointment 1 applic topical .C OMPLEX #45 grams 12/25/21 meloxicam 15 mg tablet See Rx Instructions .Route 0 11/07/23 .COMPLEX #90 tabs omeprazole 40 mg capsule,delayed See Rx Instructions . Route 01/15/24 release .COMPLEX #30 caps levothyroxine 175 mcg tablet 175 mcg PO DAILY #30 tabs 07/06/24 Allergies Allergy/AdvReac Type Severity Reaction Status Date / Time No Known Allergies Allergy Verified 10/28/24 13:57 Review of Systems 2 General: Reports: 10 or more systems reviewed and unremarkable except in HPI and below Const: Denies: fever(s) or chills ENMT: Denies: throat pain or mouth pain Card: Denies: chest pain or palpitations Resp: Denies: dyspnea or productive cough GI: Denies: abdominal pain, nausea or vomiting : Reports: flank pain, difficulty voiding, dysuria, urinary frequency and urinary urgency Musc: Denies: neck pain or back pain Neuro: Denies: headache(s) or dizziness Psych: Denies: anxiety or depression PFSH ED 2 PFSH: Medical History No pertinent past medical history neghx: dm, dvt/pe PCP: [place] [facility] (overactive bladder) Controlled with medication managed by her primary care provider . Mood changes Controlled with fluoxetine managed by her PMD. She does not see a therapist Hypothyroidism Diagnosed in 2006 and controlled with medication managed by her primary care provider GERD (gastroesophageal reflux disease) Controlled with medication. Hypertension Diagnosed with chronic hypertension and pedal edema in 2017 and medication controls the symptoms managed by her primary care provider. 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 Surgical History History of suburethral sling procedure 04/18/2021- single incision midurethral sling performed by Dr. Tamez at [facility] S/P tubal ligation Sterilization by Essure procedure performed in July [address] Lee at [facility]. S/P reduction mammoplasty Performed in 2005 S/P cholecystectomy laparoscopic procedure performed in 1999 Status post arthroscopic knee surgery [address] Tracey S/P laparoscopy 04/11/2004--Diagnostic laparoscopy, pelvic pain, Dr. Grissom. She states that no abnormality was noted on laparoscopy. S/P peroneal tendon repair Performed by Dr. Darby at [facility] in May 2019 Family History Mother Diabetes Brother Diabetes Father Heart disease Family/Other Ovarian cancer Maternal cousin, age at diagnosis unknown Breast cancer Paternal aunt, age at diagnosis unknown Sister Thyroid disease Denies family history of Colon cancer Clotting disorder Hyperlipidemia Anesthesia complication Bleeding disorder Hypertension Uterine cancer Stroke Social History Smoking and tobacco/nicotine status: never used tobacco/nicotine Alcohol intake: never Substance/Drug Use: never Physical Exam 2 Const: COMMON NORMALS: no acute distress and patient oriented x3 GENERAL APPEARANCE: cooperative; not ill appearing ORIENTATION/CONSCIOUSNESS: Yes awake HENMT: COMMON NORMALS: normocephalic HEAD & SCALP: normocephalic Neck/C-Spine: COMMON NORMALS: full ROM GENERAL: Yes normal visual inspection and Yes trachea midline Resp: COMMON NORMALS: normal respiratory effort EFFORT & INSPECTION: Yes able to speak in complete sentences Cardio: COMMON NORMALS: S1 normal heart sound present and S2 normal heart sound present HEART SOUNDS: S1 normal heart sound present and S2 normal heart sound present GI: COMMON NORMALS: Normal to inspection, nondistended, normoactive bowel sounds present and Soft to palpation PALPATION: Yes Soft to palpation and Yes Tenderness to palpation present (GI) Details: LLQ and other (suprapubic) : COMMON NORMALS: No no CVA tenderness BLADDER/KIDNEY EXAM: No no CVA tenderness and Yes CVA tenderness on the left Back/Pelvis: COMMON NORMALS: negative for no CVA tenderness GENERAL BACK: Y es CVA tenderness Extremity: COMMON NORMALS: normal to inspection and full ROM GENERAL: Yes normal exam except as noted Neuro: COMMON NORMALS: patient oriented x3 Psych: COMMON NORMALS: mental status grossly normal and cooperative Course 2 Vital Signs: Vital signs: Vital Signs Temperature 97.8 F 11/19/24 17:48 Pulse Rate 63 11/19/24 20:00 Respiratory Rate 18 11/19/24 20:00 Blood Pressure 155/88 11/19/24 20:00 Pulse Oximetry 100 11/19/24 20:00 Oxygen Delivery Me thod Room Air 11/19/24 20:00 MDM - Female Medical Decision Making Patient is 54-year-old female with history of hypothyroidism,e-coils to bilateral fallopians tubes, without prior history of renal colic, with recent return from camping, with 3-4 days of worsening left flank pain, dysuria, now suprapubic to left abdominal pain. Will obtain routine labs, urinalysis, urine hCG, CBC, CMP, and most likely will need CT of abdomen pelvis for concern of stone pathology. CT of the abdomen pelvis did not show any renal colic, no acute findings. She does however have a slight amount of metabolic acidosis with her CO2 of 18, and received 1 L IV fluids. I also recommended to her that she have 1200 more liters of fluid tonight of noncaffeinated beverage. As well, liver function was minimally elevated. I discussed with patient to have her labs repeated with primary care in 1-2 weeks. She states understanding. I suspect a component of hypovolemia that has caused a minimal amount of elevation of AST/ALT, and CO2 of 18. I will not treat her for pyuria at this time, since nitrate negative urine, and 6-10 wbc Lab Data 11/19/24 18:35 11/19/24 18:35 Radiology Impressions Abdomen/Pelvis CT 11/19/24 18:51 IMPRESSION: No evidence of nephrolithiasis or obstructive uropathy. COMMENTS: Consistent with the [place] [employer]'s Incidental Findings Committee white paper (J Am Jessy Radiol 2018): Any incidental renal lesion less than 1 cm or classified as too small to characterize, or any incidental cystic renal lesion characterized as simple-appearing, is likely benign. No follow-up imaging is recommended for these lesions per consensus recommendations based on imaging criteria. Laboratory Results WBC 7.89 10^3/uL (3.29-11.43) 11/19/24 18:35 RBC 4.83 10^6/uL (3.85-5.65) 11/19/24 18:35 Hgb 14.10 g/dL (11.27-16.99) 11/19/24 18:35 Hct 43.9 % (36-47) 11/19/24 18:35 MCV 90.9 fl (85-98) 11/19/24 18:35 MCH 29.2 pg (27-33) 11/19/24 18:35 MCHC 32.1 g/dL (30-55) 11/19/24 18:35 RDW 13.2 % (12.1-15.1) 11/19/24 18:35 Plt Count 288 10^3/cmm (157-399) 11/19/24 18:35 MPV 9.7 fL (7.4-10.4) 11/19/24 18:35 Neut % (Auto) 53.4 % 11/19/24 18:35 Lymph % (Auto) 37.6 % 11/19/24 18:35 [place] % (Auto) 6.1 % 11/19/24 18:35 Eos % (Auto) 1.9 % 11/19/24 18:35 Baso % (Auto) 0.9 % 11/19/24 18:35 Neut # (Auto) 4.21 10^3/uL (1.8-7.7) 11/19/24 18:35 Lymph # (Auto) 3.0 10^3/uL (0.8-4.8) 11/19/24 18:35 [place] # (Auto) 0.5 10^3/uL (0.2-0.9) 11/19/24 18:35 Eos # (Auto) 0.2 10^3/uL (0.0-0.8) 11/19/24 18:35 Baso # (Auto) 0.1 10^3/uL (0.0-0.1) 11/19/24 18:35 Nucleated RBC % (auto) 0 % 11/19/24 18:35 Nucleated RBCs # 0.0 /100WBC 11/19/24 18:35 Sodium 139 mmol/L (136-145) 11/19/24 18:35 Potassium 3.9 mmol/L (3.5-5.1) 11/19/24 18:35 Chloride 108 mmol/L (98-107) H 11/19/24 18:35 Carbon Dioxide 18 mmol/L (22-29) L 11/19/24 18:35 Anion Gap 16.9 (5-19) 11/19/24 18:35 BUN 16 mg/dL (6-20) 11/19/24 18:35 Creatinine 0.9 mg/dL (0.5-0.9) 11/19/24 18:35 GFR Calculation 64.8 mL/min (90-130) L 11/19/24 18:35 Glucose 81 mg/dL (65-115) 11/19/24 18:35 Calculated Osmolality 288 mOsm/kg (285-295) 11/19/24 18:35 Calcium 9.3 mg/dL (8.5-10.5) 11/19/24 18:35 Total Bilirubin 0.3 mg/dL (0.15-1.2) 11/19/24 18:35 AST 33 U/L (0-32) H 11/19/24 18:35 ALT 51 U/L (0-33) H 11/19/24 18:35 Alkaline Phosphatase 66 U/L (35-105) 11/19/24 18:35 Total Protein 7.1 g/dL (6.6-8.7) 11/19/24 18:35 Albumin 4.3 g/dL (3.5-5.2) 11/19/24 18: Globulin 2.8 g/dL (1.3-4.6) 11/19/24 18:35 HCG, Qual Negative (Negative) 11/19/24 18:35 Urine Color Yellow (Yellow) 11/19/24 18:35 Urine Appearance Clear (CLEAR) 11/19/24 18: Urine pH 6.0 (5-7) 11/19/24 18:35 Ur Specific [place] 1.021 (1.005-1.030) 11/19/24 18:35 Urine Protein Negative (Negative) 11/19/24 18:35 Urine Glucose (UA) Negative (Normal) 11/19/24 18:35 Urine Ketones 2+ (Negative) H 11/19/24 18:35 Urine Blood 3+ (Negative) A 11/19/24 18:35 Urine Nitrate Negative (Negative) 11/19/24 18:35 Urine Bilirubin Negative (Negative) 11/19/24 18:35 Urine Urobilinogen 1.0 mg/dL (Negative) 11/19/24 18:35 Ur Leukocyte Esterase Trace (Negative) A 11/19/24 18:35 Urine RBC 3-5 /hpf (0-2) 11/19/24 18:35 Urine WBC 6-10 /hpf (0-5) 11/19/24 18:35 Ur Squamous Epith Cells 11-20 /hpf (0-5) H 11/19/24 18:35 Amorphous Sediment Not Reportable 11/19/24 18:35 Urine Bacteria 1+ /hpf (NONE) H 11/19/24 18:35 Hyaline Casts 0-4 /lpf H 11/19/24 18:35 All radiology interpretation(s) finalized by discharge Discharge Plan Discharge Clinical Impression: Metabolic acidosis, Elevated liver function tests Condition: Stable Prescriptions: New cyclobenzaprine 10 mg tablet 10 mg PO BID PRN (Reason: muscle spasm) Qty: 20 0RF No Action multivitamin Tablet 1 tab PO DAILY progesterone micronized [Prometrium] 200 mg capsule 200 mg PO DAILY liothyronine 5 mcg tablet 5 mcg PO DAILY clobetasol 0.05 % ointment 1 applic topical .COMPLEX Qty: 45 1RF Rx Instructions: 1 applic topical 4 times weekly x 2mos then 1-2 times weekly; semaglutide (weight loss) 2.4 mg/0.75 mL pen injector 2.4 mg SUBCUT Q7D aspirin 81 mg tablet,delayed release (DR/EC) 81 mg PO DAILY melatonin 5 mg capsule PO topiramate 25 mg tablet 50 mg PO BID estradiol 0.5 mg/0.5 gram (0.1 %) gel in packet 1 packet transdermal DAILY meloxicam 15 mg tablet See Rx Instructions .ROUTE .COMPLEX Qty: 90 3RF Dose Instruction: TAKE ONE TABLET BY MOUTH EVERY DAY *do not take ibuprofen/aleve ON same day* Rx Instructions: TAKE ONE TABLET BY MOUTH EVERY DAY *do not take ibuprofen/aleve ON same day* omeprazole 40 mg capsule,delayed release(DR/EC) See Rx Instructions .ROUTE .COMPLEX Qty: 30 7RF Dose Instruction: take 1 capsule BY MOUTH EVERY DAY EVERY MORNING Rx Instructions: take 1 capsule BY MOUTH EVERY DAY EVERY MORNING levothyroxine 175 mcg tablet 175 mcg PO DAILY Qty: 30 6RF Discharge Orders: Discharge ED (Routine); Ordered 11/19/24 Ordered By: Siobhan Blank Referrals: Abdi Guevara MD [Primary Care Provider, Family Practice] Discharge Diet: Usual diet Discharge Activity: Resume usual activity Activity Restrictions/Additional Instructions: Follow-up with your liver function testing in 2-3 weeks with your primary care provider. Increase fluid intake as discussed, noncaffeinated beverage, approximately 1200 mL tonight. Since you did not have infection in your urine, you were not treated for UTI. No stone in your kidneys were found on CT. No acute findings were found. Please return here if you continue to have issues. As discussed, this could be musculoskeletal. Print Language: Kiswahili Coding Level of Care Code ED Adolescent Coordinator for Yomaira Pedroza
[2024-11-19 18:44] VITALS: BP 158/97; PULSE 60; O2SAT 99
[2024-11-19 18:46] LABS: Basophils # 0.1 10^3/uL (0.0-0.1); Basophils % 0.9 %; Eosinophils # 0.2 10^3/uL (0.0-0.8); Eosinophils % 1.9 %; Hematocrit 43.9 % (36-47); Lymphocytes % 37.6 %; Mean Corpuscular HGB Conc 32.1 g/dL (30-55); Mean Corpuscular Hemoglobin 29.2 pg (27-33); Mean Corpuscular Volume 90.9 fl (85-98); Mean Platelet Volume 9.7 fL (7.4-10.4); Monocytes # 0.5 10^3/uL (0.2-0.9); Monocytes % 6.1 %; Neutrophils # 4.21 10^3/uL (1.8-7.7); Neutrophils % 53.4 %; Nucleated Red Blood Cells % 0 %; Platelet Count 288 10^3/cmm (157-399); Red Blood Count 4.83 10^6/uL (3.85-5.65); Red Cell Distribution Width 13.2 % (12.1-15.1); White Blood Count 7.89 10^3/uL (3.29-11.43)
[2024-11-19 18:50] LABS: Bilirubin Urine Negative (Negative); Blood Urine 3+ (Negative); Glucose Urine UA Negative (Normal); Ketones Urine 2+ (Negative); Leukocyte Esterase Urine Trace (Negative); Nitrate Urine Negative (Negative); Protein Urine Negative (Negative); Specific Gravity, Urine 1.021 (1.005-1.030); Urine Appearance Clear (CLEAR); Urine Color Yellow (Yellow)
[2024-11-19 18:51] LABS: HCG Qualitative Urine. Negative (Negative)
--- NOTE | 2024-11-19 18:51 | CTR_ITS ---
PROCEDURE INFORMATION: Exam: CT Abdomen And Pelvis Without Contrast Exam date and time: 11/19/2024 7:03 PM Age: 54 years old Clinical indication: Abdominal pain; Prior surgery; Surgery date: 6+ months; Surgery type: Gb. Tubal. Suburethral sling. C/O left flank pain; Additional info: Left flank pain, stone suspected TECHNIQUE: Imaging protocol: Computed tomography of the abdomen and pelvis without contrast. Radiation optimization: All CT scans at this facility use at least one of these dose optimization techniques: automated exposure control; mA and/or kV adjustment per patient size (includes targeted exams where dose is matched to clinical indication); or iterative reconstruction. COMPARISON: US transvaginal [id number] 10/26/2024 8:14 AM RADIATION DOSE METRICS: Total DLP (mGy-cm): 1051.86 FINDINGS: Diaphragm: Asymmetric elevation of the right hemidiaphragm. Liver: Normal. No mass. Gallbladder and biliary ducts: Status post cholecystectomy. Pancreas: Mild fatty atrophy of the pancreas. No ductal dilatation. Spleen: Normal. No splenomegaly. Adrenal glands: Normal. No mass. Kidneys and ureters: Subcentimeter hypodensity in the right renal cortex is too small to characterize but likely represents a cyst. No hydronephrosis bilaterally. No evidence of nephrolithiasis. Stomach and bowel: Colonic diverticulosis without evidence of acute diverticulitis. No bowel obstruction. Appendix: No evidence of appendicitis. Intraperitoneal space: Unremarkable. No free air. No significant fluid collection. Vasculature: Unremarkable. No abdominal aortic aneurysm. Lymph nodes: Unremarkable. No enlarged lymph nodes. Urinary bladder: Unremarkable as visualized. Reproductive: Uterus is anteverted and within normal limits for size. Bilateral fallopian tube coils visualized. Bones/joints: Multilevel lumbar spondylosis most pronounced at L5-S1. No acute osseous findings. Mild rightward curvature of the lumbar spine. Soft tissues: Unremarkable. CT/CT kidney stone [id number] IMPRESSION: No evidence of nephrolithiasis or obstructive uropathy. COMMENTS: Consistent with the [place] [employer]'s Incidental Findings Committee white paper (J Am Jessy Radiol 2018): Any incidental renal lesion less than 1 cm or classified as too small to characterize, or any incidental cystic renal lesion characterized as simple-appearing, is likely benign. No follow-up imaging is recommended for these lesions per consensus recommendations based on imaging criteria.
[2024-11-19 18:52] LABS: Add Urine Microscopic? YES; Bacteria Urine 1+ /hpf; Hyaline Casts Urine 0-4 /lpf
[2024-11-19 19:02] LABS: Alanine Aminotransferase 51 U/L (0-33); Albumin Level 4.3 g/dL (3.5-5.2); Alkaline Phosphatase 66 U/L (35-105); Anion Gap 16.9 (5-19); Aspartate Amino Transferase 33 U/L (0-32); Blood Urea Nitrogen 16 mg/dL (6-20); Calcium 9.3 mg/dL (8.5-10.5); Carbon Dioxide 18 mmol/L (22-29); Chloride 108 mmol/L (98-107); Creatinine Clr Calc Pharmacy 87.6625; Globulin 2.8 g/dL (1.3-4.6); Glomerular Filtration Rate 64.8 mL/min (90-130); Glucose 81 mg/dL (65-115); Osmolality Calculated 288 mOsm/kg (285-295); Potassium 3.9 mmol/L (3.5-5.1); Sodium 139 mmol/L (136-145); Total Bilirubin 0.3 mg/dL (0.15-1.2); Total Protein 7.1 g/dL (6.6-8.7)
[2024-11-19 19:30] VITALS: BP 161/92; PULSE 60; RESP 20; O2SAT 99
[2024-11-19] MEDS: sodium chloride 0.9% 1,000 ML 999 ML IV (19:35)
[2024-11-19] MEDS: ketorolac 30 mg/mL INJ 10 MG IVP (19:36)
[2024-11-19] MEDS: ondansetron 2 mg/ML SDV 2 mL 4 MG IVP (19:36)
[2024-11-19 20:00] VITALS: BP 155/88; PULSE 63; RESP 18; O2SAT 100
[2024-11-19 21:12] VITALS: BP 119/96; PULSE 68; RESP 17; O2SAT 99
== END 2024-11-19 21:10 | disposition home or self-care (01) ==
PROVIDERS: Emergency Provider Physician Assistant; PCP Family Medicine
DX: E87.20 Acidosis, unspecified (principal); R79.89 Other specified abnormal findings of blood chemistry; E03.9 Hypothyroidism, unspecified; N23 Unspecified renal colic; Z79.85 Long-term (current) use of injectable non-insulin antidiabetic drugs; Z79.82 Long term (current) use of aspirin; Z79.899 Other long term (current) drug therapy; Z79.890 Hormone replacement therapy
CPT/HCPCS: 36415; 74176; 80053; 81001; 81025; 85025; 96361; 96374; 96375; 99285; J1885; J2405; J7030

== ENCOUNTER 2025-02-08 09:10 | Day surgery (SDC) | payer OTHER, SELFPAY ==
[2025-02-08] VITALS (7 sets, daily range): BP systolic 111–157; BP diastolic 51–90; PULSE 54–73; RESP 14–20; TEMP 36.1–36.5; O2SAT 93–98
--- NOTE | 2025-02-08 01:51 | W.PM.OPSFHP ---
Same Day Surgery H&P Indication for Procedure/HPI DATE OF PROCEDURE: February 08, 2025 CHIEF COMPLAINT/INDICATIONFOR SURGICAL PROCEDURE: abnormal uterine bleeding PREOP DIAGNOSIS: persistent postmenopausal bleeding PLANNED PROCEDURE: Operation Date: 02/08/25 10:55 Proposed Procedures p Hysteroscopy w/ Endometrial Sampling [id number], N95.0(Not Applicable) - Art Ya MD s POSSIBLE Endometrial Poylpectomy(Not Applicable) - Art Ya MD Medications/Allergies* Home Medications ?Medication ?Instructions ?Recorded ?Confirmed ?Type multivitamin 1 tab PO DAILY 01/22/21 02/07/25 History liothyronine 5 mcg tablet 5 mcg PO DAILY 11/28/21 02/07/25 History aspirin 81 mg tablet,delayed 81 mg PO DAILY 12/18/23 02/07/25 History release melatonin 5 mg capsule 5 mg PO QPM 12/18/23 02/07/25 History estradiol 0.5 mg/0.5 gram (0.1 %) 1 packet transdermal DAILY 10/08/24 02/07/25 History transdermal gel packet topiramate 25 mg tablet 50 mg PO BID 10/08/24 02/07/25 History meloxicam 15 mg tablet 15 mg PO DAILY 02/07/25 02/07/25 History omeprazole 40 mg capsule,delayed 40 mg PO DAILY 02/07/25 02/07/25 History release tirzepatide 2.5 mg/0.1 mL 2.5 mg SUBCUT .WEEK 02/07/25 02/07/25 History subcutaneous syringe Allergies/Adverse Reactions Allergy/AdvReac Type Severity Reaction Status Date / Time No Known Allergies Allergy Verified 12/16/24 11:41 Pertinent History/Comorbid Conditions* Medical History (Updated 11/27/24 @ 00:00 by ERLINDA Armstrong) No pertinent past medical history neghx: dm, dvt/pe PCP: [place] [facility] (overactive bladder) Controlled with medication managed by her primary care provider . Mood changes Controlled with fluoxetine managed by her PMD. She does not see a therapist Hypothyroidism Diagnosed in 2006 and controlled with medication managed by her primary care provider GERD (gastroesophageal reflux disease) Controlled with medication. Hypertension Diagnosed with chronic hypertension and pedal edema in 2017 and medication controls the symptoms managed by her primary care provider. 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 Surgical History (Updated 10/09/21 @ 17:27 by Eddie Mosquera MD) History of suburethral sling procedure 04/18/2021- single incision midurethral sling performed by Dr. Tamez at [facility] S/P tubal ligation Sterilization by Essure procedure performed in July [address] Lee at [facility]. S/P reduction mammoplasty Performed in 2005 S/P cholecystectomy laparoscopic procedure performed in 1999 Status post arthroscopic knee surgery [address] Tracey S/P laparoscopy 04/11/2004--Diagnostic laparoscopy, pelvic pain, Dr. Grissom. She states that no abnormality was noted on laparoscopy. S/P peroneal tendon repair Performed by Dr. Darby at [facility] in May 2019 Family History (Updated 11/17/20 @ 13:45 by Eddie Mosquera MD) Ovarian cancer Family/Other Maternal cousin, age at diagnosis unknown Diabetes Mother Brother Heart disease Father Breast cancer Family/Other Paternal aunt, age at diagnosis unknown Thyroid disease Sister Denies family history of Colon cancer Clotting disorder Hyperlipidemia Anesthesia complication Bleeding disorder Hypertension Uterine cancer Stroke Social History Smoking and tobacco/nicotine status: never used tobacco/nicotine Alcohol intake: never Substance/Drug Use: never Pertinent Exam Findings alert, oriented x 3, clear to auscultation bilaterally and regular rate & rhythm Recommendations Surgery/Procedure today Coding Level of Care Code Acute Code for Chg Fwd
--- NOTE | 2025-02-08 13:06 | W.PM.OPSUD ---
Surgery/Procedure H&P Update DATE OF PROCEDURE: February 08, 2025 DATE H&P PERFORMED: 02/08/25 H&P UPDATE INFORMATION: I have reviewed H&P completed within last 30 days, I have examined patient prior to procedure and No changes to prior documentation PREOP DIAGNOSIS: abnormal uterine bleeding PLANNED PROCEDURE: Operation Date: 02/08/25 10:55 Proposed Procedures p Hysteroscopy w/ Endometrial Sampling [id number], N95.0(Not Applicable) - Art Ya MD s POSSIBLE Endometrial Poylpectomy(Not Applicable) - Art Ya MD
--- NOTE | 2025-02-08 13:22 | ANES.PREANE2 ---
Pre-Anesthetic Assessment Height/Weight: Height 5 ft 5 in Weight 271 lb Temp Pulse Resp BP Pulse Ox O2 Del Method 97.7 F 60 16 157/90 98 Room Air 02/08/25 09:23 02/08/25 09:23 02/08/25 09:23 02/08/25 09:23 02/08/25 09:23 02/08/25 09:23 Preop Diagnosis: abnormal uterine bleeding Operation Date: 02/08/25 10:55 Proposed Procedures p Hysteroscopy w/ Endometrial Sampling [id number], N95.0(Not Applicable) - Art Ya MD s POSSIBLE Endometrial Poylpectomy(Not Applicable) - Art Ya MD Was Beta Tasha taken within 24 hours: N/A Was Clonidine taken within 24 hours: N/A Last intake: Intake Last Liquid Date 02/07/25 Last Liquid Time 23:00 Last Solid Date 02/07/25 Last Solid Time 20:00 Social No alcohol and No tobacco Exam alert, oriented x 3, clear to auscultation bilaterally and regular rate & rhythm Airway Submandibular: within normal limits Cervical ROM: within normal limits Mallampati: Class III Dentition: full Comments: Comments: Small mouth opening Anesthetic Plan ASA status: 3 Anesthesia: Choice Other: No prior issues with anesthesia NPO since yesterday evening History of BRIDGETT, no treatment BMI 45 Hypothyroidism on Synthroid Labs reviewed and acceptable for procedure EKG sinus rhythm Medications/Allergies Home Medications ?Medication ?Instructions ?Recorded ?Confirmed ?Last Taken ?Type multivitamin 1 tab PO DAILY 01/22/21 02/08/25 01/31/25 History liothyronine 5 mcg tablet 5 mcg PO DAILY 11/28/21 02/08/25 01/31/25 History clobetasol 0.05 % topical ointment 1 applic topical .COMPLEX #45 grams 12/25/21 02/08/25 01/31/25 Rx aspirin 81 mg tablet,delayed 81 mg PO DAILY 12/18/23 02/08/25 01/24/25 History release melatonin 5 mg capsule 5 mg PO QPM 12/18/23 02/08/25 02/06/25 History estradiol 0.5 mg/0.5 gram (0.1 %) 1 packet transdermal DAILY 10/08/24 02/08/25 02/07/25 History transdermal gel packet topiramate 25 mg tablet 50 mg PO BID 10/08/24 02/08/25 01/24/25 History cyclobenzaprine 10 mg tablet 10 mg PO BID PRN muscle spasm #20 11/19/24 02/08/25 01/31/25 Rx tabs progesterone micronized 200 mg 200 mg PO .HS #90 caps 12/07/24 02/08/25 02/06/25 Rx capsule (Prometrium) levothyroxine 175 mcg tablet 175 mcg PO DAILY #30 tabs 01/14/25 02/08/25 02/08/25 Rx meloxicam 15 mg tablet 15 mg PO DAILY 02/07/25 02/08/25 01/31/25 History omeprazole 40 mg capsule,delayed 40 mg PO DAILY 02/07/25 02/08/25 01/31/25 History release tirzepatide 2.5 mg/0.1 mL 2.5 mg SUBCUT .WEEK 02/07/25 02/08/25 01/24/25 History subcutaneous syringe Allergies Allergy/AdvReac Type Severity Reaction Status Date / Time No Known Allergies Allergy Verified 12/16/24 11:41 Current Medications Generic Name Dose Route Start Last Admin Trade Name Freq PRN Reason Stop Dose Admin Sodium Chloride 1,000 mls @ 30 mls/hr 02/08/25 09:15 02/08/25 09:31 Sodium Chloride 0.9% IV 02/09/25 09:14 30 mls/hr .Q24H OMER Administration PFSH Anesthesia Medical History No pertinent past medical history neghx: dm, dvt/pe PCP: [place] [facility] (overactive bladder) Controlled with medication managed by her primary care provider . Mood changes Controlled with fluoxetine managed by her PMD. She does not see a therapist Hypothyroidism Diagnosed in 2006 and controlled with medication managed by her primary care provider GERD (gastroesophageal reflux disease) Controlled with medication. Hypertension Diagnosed with chronic hypertension and pedal edema in 2017 and medication controls the symptoms managed by her primary care provider. 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 Surgical History History of suburethral sling procedure 04/18/2021- single incision midurethral sling performed by Dr. Tamez at [facility] S/P tubal ligation Sterilization by Essure procedure performed in July [address] Lee at [facility]. S/P reduction mammoplasty Performed in 2005 S/P cholecystectomy laparoscopic procedure performed in 2000 Status post arthroscopic knee surgery [address] Tracey S/P laparoscopy 04/11/2004--Diagnostic laparoscopy, pelvic pain, Dr. Grissom. She states that no abnormality was noted on laparoscopy. S/P peroneal tendon repair Performed by Dr. Darby at [facility] in May 2019 Family History Mother Diabetes Brother Diabetes Father Heart disease Family/Other Ovarian cancer Maternal cousin, age at diagnosis unknown Breast cancer Paternal aunt, age at diagnosis unknown Sister Thyroid disease Denies family history of Colon cancer Clotting disorder Hyperlipidemia Anesthesia complication Bleeding disorder Hypertension Uterine cancer Stroke Social History Smoking and tobacco/nicotine status: never used tobacco/nicotine Alcohol intake: never Substance/Drug Use: never Data Anesthesia Cardiac Studies: Echocardiogram 05/16/21
--- NOTE | 2025-02-08 14:09 | ANE.PACU2 ---
Inpatient post-anesthesia follow up: Airway intact: Yes Vital signs: Temperature 97.1 F Pulse Rate 64 Respiratory Rate 18 Blood Pressure 129/65 Pulse Oximetry 93 Oxygen Delivery Me thod Room Air Oxygen Flow Rate Fraction of Inspir ed Oxygen Hydration adequate: Yes Nausea and vomiting: No Pain level: 1 Mental status: Baseline
--- NOTE | 2025-02-08 14:10 | PM.OP ---
Operative Report Date of procedure: February 08, 2025 Pre-op diagnosis: abnormal uterine bleeding Post-op diagnosis: same Post-op findings: normal endometrial cavity No polyps / fibroids minimal amount of endometrial tissue Procedure done: hysteroscopy Curettage of uterus Implants: none Specimens removed/disposition: endometrial curettings, sent to pathology Surgeon: Art Ya MD Anesthesia: MAC Estimated blood loss (mL): 0 Complications: none Findings: normal endometrial cavity No polyps / fibroids minimal amount of endometrial tissue Condition: stable Disposition: PACU Brief History: 54 y.o. with abnormal uterine bleeding Procedure: Informed consent signed. Patient was taken to the operating room. Anesthesia was induced. Patient was placed in dorsolithotomy position, prepped and draped for hysteroscopy. A bivalve speculum was placed in the vagina. The anterior lip of the cervix was grasped with a sharp-toothed tenaculum. The cervix was serially dilated with Hegar dilators. . A hysteroscope was placed into the endometrial cavity. The endometrial cavity was seen to be normal. There were no polyps or fibroids. There was a minimal amount of endometrial tissue. The hysteroscope was then removed. Endometrial curettage was done with a sharp curette. Endometrial tissue was sent to pathology. The sharp-toothed tenaculum was removed. There was no bleeding from the endometrial cavity or cervix. The patient was then placed supine and awakened and taken to the PACU. Postop condition: stable EBL: none Sponge and instruments counts were normal x 2 Complications: none
== END 2025-02-08 14:50 | disposition home or self-care (01) ==
PROVIDERS: PCP Family Medicine; Visit Provider Obstetrics & Gynecology
PROC: 0UJD8ZZ Inspection of Uterus and Cervix, Via Natural or Artificial Opening Endoscopic (ICD-10-PCS; CPT 58555; principal; 2025-02-08 10:45)
DX: N93.9 Abnormal uterine and vaginal bleeding, unspecified (principal); K21.9 Gastro-esophageal reflux disease without esophagitis; Z79.82 Long term (current) use of aspirin; E03.9 Hypothyroidism, unspecified; G47.33 Obstructive sleep apnea (adult) (pediatric)
CPT/HCPCS: 58558; 88305; J1100; J1885; J2250; J2405; J2704; J3010; J7030

== ENCOUNTER 2025-03-14 10:43 | Outpatient (CLI) | payer OTHER, SELFPAY ==
--- NOTE | 2025-03-14 11:00 | MM_ITS ---
WS: [id number] DIAGNOSTIC BILATERAL DIGITAL BREAST TOMOSYNTHESIS MAMMOGRAPHY WITH CAD HISTORY: Right breast abnormality COMPARISON: 09/20/2024, 03/29/2024, 02/10/2024, 01/31/2023 TECHNIQUE: Bilateral craniocaudad, mediolateral oblique, and mediolateral views are submitted with tomosynthesis and SM. Spot compression RIGHT MLO. Computer aided detection utilized. Breast composition: There are scattered areas of fibroglandular density. The asymmetry in the upper outer quadrant of the RIGHT breast has resolved. Bandlike area of fibrosis or scar tissue in the LEFT breast is stable. There are no new or suspicious findings. No distortion of the soft tissues. There are a few benign calcifications. MM/MM diag BI tomosynthesis [id number] IMPRESSION: BI-RADS: 2 - Benign. FOLLOW UP: 1 Year Follow-up
== END 2025-03-14 10:44 | disposition home or self-care (01) ==
LOC: RAD 10:44
PROVIDERS: PCP Family Medicine; Visit Provider Family Medicine
DX: R92.8 Other abnormal and inconclusive findings on diagnostic imaging of breast (principal); N64.89 Other specified disorders of breast; R92.1 Mammographic calcification found on diagnostic imaging of breast
CPT/HCPCS: 77062; G0279

== ENCOUNTER → 2025-04-06 16:04 | Outpatient (BNVA) | payer OTHER, SELFPAY | PROVIDERS: PCP Family Medicine; Visit Provider Nurse Practitioner Women's Health | DX: R68.82 Decreased libido (principal); R53.83 Other fatigue | CPT/HCPCS: 82306; 84270; 84403 ==

== ENCOUNTER → 2025-05-30 11:26 | Outpatient (BNVA) | payer OTHER, SELFPAY | PROVIDERS: PCP Family Medicine; Visit Provider Nurse Practitioner Women's Health | DX: R68.82 Decreased libido (principal); R45.86 Emotional lability; Z79.890 Hormone replacement therapy | CPT/HCPCS: 84403 ==

== ENCOUNTER 2025-06-07 07:01 | Outpatient (CLI) | payer OTHER, SELFPAY ==
[2025-06-07 07:36] LABS: Hematocrit 43.0 % (36-47); Hemoglobin 14.00 g/dL (11.27-16.99); Mean Corpuscular HGB Conc 32.6 g/dL (30-55); Mean Corpuscular Hemoglobin 29.4 pg (27-33); Mean Corpuscular Volume 90.1 fl (85-98); Nucleated Red Blood Cells % 0 %; Platelet Count 261 10^3/cmm (157-399); Red Blood Count 4.77 10^6/uL (3.85-5.65); White Blood Count 7.62 10^3/uL (3.29-11.43)
[2025-06-07 08:08] LABS: Estmated Average Glucose 94; Hemoglobin A1C 4.9 % (4.0-6.0)
[2025-06-07 08:16] LABS: Alanine Aminotransferase 19 U/L (0-33); Albumin Level 4.0 g/dL (3.5-5.2); Alkaline Phosphatase 58 U/L (35-105); Anion Gap 14.4 (5-19); Aspartate Amino Transferase 16 U/L (0-32); Blood Urea Nitrogen 22 mg/dL (6-20); Calcium 9.0 mg/dL (8.5-10.5); Carbon Dioxide 23 mmol/L (22-29); Chloride 106 mmol/L (98-107); Cholesterol 189 mg/dL (0-200); Globulin 2.7 g/dL (1.3-4.6); Glucose 108 mg/dL (65-115); HDL Cholesterol 52 mg/dL (60-100); Magnesium 1.9 mg/dL (1.7-2.3); Osmolality Calculated 292 mOsm/kg (285-295); Potassium 4.4 mmol/L (3.5-5.1); Sodium 139 mmol/L (136-145); Thyroid Stimulating Hormone 8.16 uIU/mL (0.27-4.20); Total Protein 6.7 g/dL (6.6-8.7); Triglycerides 160 mg/dL (0-150); Vitamin B12 1483 pg/mL (232-1245)
[2025-06-07 08:42] LABS: Free T4 Free Thyroxine 1.18 ng/dL (0.82-1.77)
== END 2025-06-07 07:02 | disposition home or self-care (01) ==
PROVIDERS: PCP Family Medicine; Visit Provider Nurse Practitioner Adult Health
DX: Z00.00 Encounter for general adult medical examination without abnormal findings (principal); E55.9 Vitamin D deficiency, unspecified; R63.1 Polydipsia; E03.9 Hypothyroidism, unspecified; E66.09 Other obesity due to excess calories; R53.2 Functional quadriplegia
CPT/HCPCS: 80053; 80061; 82306; 82607; 83036; 83735; 84439; 84443; 84480; 85025

== ENCOUNTER → 2025-06-27 08:30 | Outpatient (BNVA) | payer OTHER, SELFPAY | PROVIDERS: PCP Family Medicine; Visit Provider Nurse Practitioner Women's Health | DX: R68.82 Decreased libido (principal) | CPT/HCPCS: 84270 ==